=== PATIENT | female | born 1970 | race Caucasian/White ===

== ENCOUNTER → 2017-12-29 06:44 | Outpatient (CLI) | payer OTHER, SELFPAY ==
[2017-12-29 08:34] LABS: Add Manual Diff / Slide Review NO; Eosinophils Percent Auto 2.8 % (2-4); Hematocrit 29.8 % (36-46); Hemoglobin 9.5 g/dL (12.0-16.0); Lymphocytes Percent Auto 28.5 % (25-40); Mean Corpuscular HGB Conc 31.7 % (30-36); Mean Corpuscular Hemoglobin 22.2 PG (26-34); Monocytes Percent Auto 6.9 % (3-14); Neutrophils Absolute Auto 5500 /uL (3000-5900); Neutrophils Percent Auto 60.8 % (50-75); Platelet Count 369 X10^3/uL (150-400); Red Blood Cell Count 4.26 X10^6/uL (4.0-5.2); Red Cell Distribution Width 17.6 % (11.6-14.8)
[2017-12-29 08:43] LABS: Alanine Aminotransferase 24 IU/L (9-52); Albumin 3.9 g/dL (3.5-5.0); Albumin Globulin Ratio 1.4 (1.0-2.8); Alkaline Phosphatase 81 U/L (38-126); Aspartate Aminotransferase 18 IU/L (14-36); Bilirubin Total 0.2 mg/dL (0.2-1.3); Blood Urea Nitrogen 16 mg/dL (7-17); Carbon Dioxide 27 mmol/L (22-32); Chloride 106 mmol/L (98-107); Cholesterol 158 mg/dL (140-199); Estimated Glomerular Filt Rate > 60.0 mL/min (>60); Globulin 2.7 g/dL (1.7-4.1); Glucose 110 mg/dL (70-100); HDL Cholesterol 57 mg/dL (40-60); HEMOLYSIS < 15 (0-50); LDL Cholesterol Calculated 86 mg/dL (<100); Potassium 4.1 mmol/L (3.4-5.1); Sodium 143 mmol/L (137-145); Total Protein 6.6 g/dL (6.3-8.2); Triglycerides 76 mg/dL (35-150)
[2017-12-29 08:53] LABS: Hemoglobin A1C% w Est Avg Glu 5.8 % (4.0-6.0)
[2017-12-29 09:22] LABS: Free T3, Triiodothyronine Free 2.44 pg/mL (2.77-5.27); Free T4, Direct Thyroxine 0.93 ng/dL (0.78-2.19)
[2017-12-29 09:35] LABS: TSH w/ Reflex to FT4 4.96 uIU/mL (0.47-4.68)
[2017-12-31 15:19] LABS: Thyroid Peroxidase Antibodies < 1 IU/mL (< 9)
== END ==
PROVIDERS: Visit Provider Nurse Practitioner Family
DX: Z00.00 Encounter for general adult medical examination without abnormal findings (principal); E03.9 Hypothyroidism, unspecified
CPT/HCPCS: 36415; 80053; 80061; 80076; 83036; 84439; 84443; 84481; 85025; 86376

== ENCOUNTER → 2018-02-23 09:07 | Outpatient (CLI) | payer OTHER, SELFPAY ==
--- NOTE | 2018-02-23 09:08 | DI.US.S_ITS ---
PROCEDURE: US PELVIC COMPLETE INDICATIONS: DUB TECHNIQUE: Real-time scanning was performed of the pelvic organs, with image documentation. Additional endovaginal scanning was necessary due to incomplete visualization of the adnexal and endometrial structures by transabdominal scanning. COMPARISON: [facility], , PELVIC COMPLETE, 01/10/2014, 11:10. FINDINGS: Transabdominal scanning: Limited scanning through the kidneys shows no hydronephrosis. No pathologic free abdominal or pelvic fluid. Endovaginal scanning: Uterus: Uterus is normal in size at 9.3 x 6.8 x 5.8 cm. The endometrium measures 11 mm in combined thickness. Posterior subserosal fibroid not significantly changed measuring 3.3 x 2.7 x 2.7 cm. Posterior intramural fibroid present measuring 1.1 x 0.9 x 1.3 cm. Ovaries: Ovary is normal size measuring 2.4 x 2.0 x 1.8 cm on the right and 3.6 x 2.1 x 3.1 cm on the left. Cyst while the left ovary measured 1.9 x 1.9 x 2.4 cm. IMPRESSION: 1. 2 small fibroids and hemorrhagic cyst involving the left ovary measuring up to 2.4 cm. Given the small size and patient's age, no followup is necessary. Dictated by: Rishi CARDONA Interpreted: Eliezer Yip MD on 02/23/2018 at 11:25 Approved by: Eliezer Yip M.D. on 02/23/2018 at 12:34
== END ==
PROVIDERS: Family Provider Obstetrics & Gynecology; PCP Family Medicine; Visit Provider Family Medicine
DX: N93.8 Other specified abnormal uterine and vaginal bleeding (principal); D25.1 Intramural leiomyoma of uterus; D25.2 Subserosal leiomyoma of uterus; N83.202 Unspecified ovarian cyst, left side
CPT/HCPCS: 76830; 76856

== ENCOUNTER 2018-03-16 20:48 | Emergency (ER) | payer OTHER, SELFPAY ==
[2018-03-16 20:55] VITALS: BP 144/62; PULSE 93; RESP 17; TEMP 36.8; O2SAT 100; BMI 34.1
--- NOTE | 2018-03-16 21:00 | ED.FEMALEGU ---
HPI - Female Genitourinary General Chief complaint: Vaginal Bleeding Stated complaint: Vaginal bleeding, dizziness, pain Time Seen by Provider: 03/16/18 20:51 Source: patient Mode of arrival: ambulatory Limitations: no limitations History of Present Illness HPI Narrative: Patient is a 47-year-old female who presents with vaginal bleeding. She has a known uterine fibroids she has been taking Provera 20 mg every 2 hr to help stop bleeding today. She says today she has been going through more than 1 pad an hour since about 9:00 a.m.. She spoke with import/export analyst who recommended that she take it every 2 hr. So she has taken 3 doses at 2:00 p.m.,4 p.m. and 6:00 p.m. however she feels a not working. She feels dizzy and lightheaded when she stands. She is having intense abdominal cramping. She is scheduled for hysterectomy but not until April. MD Complaint: vaginal bleeding Related Data Home Medications Medication Instructions Recorded Confirmed beclomethasone diprop 80 1 puff INHALATION BID 11/19/17 03/01/18 mcg/actuation HFA breath activated aerosol Previous Rx's Medication Instructions Recorded albuterol sulfate HFA 90 2 puff INHALATION Q6H PRN #18 gram 02/01/18 mcg/actuation aerosol inhaler bupropion HCl XL 300 mg 24 hr 300 mg PO QAM #30 tab 02/01/18 tablet, extended release etodolac 400 mg tablet 400 mg PO BID #60 tab 02/01/18 ferrous sulfate 325 mg (65 mg 325 mg PO BID #60 tab 02/01/18 iron) tablet levothyroxine 175 mcg tablet 175 mcg PO DAILY #90 tab 02/01/18 omeprazole 40 mg capsule,delayed 40 mg PO DAILY #30 cap 02/01/18 release sumatriptan 100 mg tablet 100 mg PO .COMPLEX PRN #30 tab 02/06/18 norethindrone acetate 1 mg-ethinyl 1 tab PO DAILY #21 tab 03/03/18 estradiol 20 mcg tablet paroxetine 30 mg tablet 30 mg PO DAILY #90 tab 03/10/18 medroxyprogesterone 10 mg tablet 20 mg PO DAILY #100 tab 03/16/18 Allergies Allergy/AdvReac Type Severity Reaction Status Date / Time Sulfa (Sulfonamide Allergy Severe ANAPHYLACTI Verified 03/16/18 20:55 Antibiotics) C [SULFA (SULFONAMIDE ANTIBIOTICS)] meperidine [MEPERIDINE] AdvReac Mild CRABBY Verified 03/16/18 20:55 Review of Systems Review of Systems All systems reviewed & are unremarkable except as noted in HPI and below Constitutional Denies chills, Reports fatigue, Denies fever(s) and Reports weakness Cardiovascular Denies syncope and Reports dyspnea on exertion Respiratory Reports dyspnea on exertion Gastrointestinal Gastrointestinal: Reports abdominal pain, Denies nausea and Denies vomiting Genitourinary Reports abnormal vaginal bleeding Integumentary/Breasts Denies pruritus, Denies erythema, Denies rash and Denies wounds Neurologic Denies syncope and Reports weakness Endocrine Reports fatigue PFSH Medical History Anxiety (Chronic) Asthma (Chronic) Depression (Chronic) Fibroids (Chronic) GERD (gastroesophageal reflux disease) (Chronic) Hypothyroidism (Chronic) Seizures (Chronic) Surgical History History of anterior cruciate ligament surgery (Resolved 03/2014) History of cholecystectomy (Resolved 06/2013) History of gastrointestinal surgery (Resolved 07/2007) History of orthopedic surgery (Resolved 02/2003) History of sinus surgery (Resolved 04/2000) History of surgical removal of meniscus of knee (Resolved 01/2004) History of third molar tooth extraction (Resolved 1989) History of tonsillectomy (Resolved 05/1995) Status post laparoscopic cholecystectomy (Resolved 2013) Family History Father Blood clot in vein Grandfather Heart attack Cancer Grandmother Diabetes mellitus Mother Diabetes mellitus Social History Smoking Status: Never smoker alcohol intake: current Exam Initial Vital Signs Initial Vital Signs: Vital Signs Temperature 98.3 F 03/16/18 20:55 Pulse Rate 93 H 03/16/18 20:55 Respiratory Rate 17 03/16/18 20:55 Blood Pressure 144/62 H 03/16/18 20:55 Pulse Oximetry 100 03/16/18 20:55 GENERAL: Well-appearing, well-nourished and in no acute distress. HEENT: Head atraumatic,EOMI, pupils reactive CARDIOVASCULAR: Regular rate and rhythm without murmurs, rubs or gallops. RESPIRATORY: Breath sounds equal bilaterally, no wheezes rales or rhonchi. ABDOMEN: Soft, mild lower abdominal tenderness no guarding no rebound PELVIC: Normal external exam, os open scant amount of blood clots EXTREMITIES: Normal range of motion, no clubbing or edema. Neurovascularly intact NEUROLOGICAL: Alert and oriented x4.Normal gait and speech. SKIN: Warm, dry, no laceration, no petechiae, no rashes or lesions. Course Orders Ordered: Discontinued Medications Hydrocodone Bitart/Acetaminophen ([place] 5/325) 1 tab PO NOW ONE Stop: 03/16/18 21:45 Last Admin: 03/16/18 21:51 Dose: 1 tab Hydrocodone Bitart/Acetaminophen (Vicodin Prepack) 1 bottle MISC SEEINSTR ONE Stop: 03/16/18 23:08 Last Admin: 03/16/18 23:14 Dose: 1 bottle Sodium Chloride (Normal Saline 0.9%) 1,000 mls @ 1,000 mls/hr IV BOLUS ONE Stop: 03/16/18 22:59 Last Infusion: 03/16/18 23:20 Dose: 0 mls/hr Admin: 03/16/18 22:19 Dose: 1,000 mls/hr Medroxyprogesterone Acetate (Medroxyprogesterone) 20 mg PO NOW ONE Stop: 03/16/18 21:07 Last Admin: 03/16/18 21:22 Dose: 20 mg Vital Signs - 8 hr 03/16/18 22:45 03/16/18 23:14 Pulse Rate 75 82 Respiratory Rate 22 21 Blood Pressure [Left Arm] 123/70 112/72 Pulse Oximetry 100 100 MDM - Female Genitourinary Lab Data Attestation: I reviewed the patient's lab results. Result diagrams: 03/16/18 21:09 03/16/18 21:09 Lab Results 03/16/18 03/16/18 03/16/18 Range/Units 21:09 21:09 21:09 WBC 7.6 (4.5-11.0) X10^3/uL RBC 4.19 (4.0-5.2) X10^6/uL Hgb 9.0 L (12.0-16.0) g/dL Hct 28.7 L (36-46) % MCV 68.4 L (80-100) fL MCH 21.4 L (26-34) PG MCHC 31.3 (30-36) % RDW 16.7 H (11.6-14.8) % Plt Count 411 H (150-400) X10^3/uL Neut % (Auto) 71.6 (50-75) % Lymph % (Auto) 19.8 L (25-40) % [place] % (Auto) 5.8 (3-14) % Eos % (Auto) 2.0 (2-4) % Baso % (Auto) 0.8 (0-2) % Neut # (Auto) 5500 (6745-6199) /uL RBC Morphology See below Hypochromasia 2+ H Microcytosis 2+ H Sodium 140 (137-145) mmol/L Potassium 3.9 (3.4-5.1) mmol/L Chloride 105 (98-107) mmol/L Carbon Dioxide 24 (22-32) mmol/L BUN 15 (7-17) mg/dL Creatinine 1.10 H (0.52-1.04) mg/dL Estimated GFR 53.7 L (>60) mL/min BUN/Creatinine Ratio 13.6 (6-22) Glucose 147 H (70-100) mg/dL Calcium 9.0 (8.4-10.2) mg/dL Total Bilirubin 0.2 (0.2-1.3) mg/dL AST 18 (14-36) IU/L ALT 18 (9-52) IU/L Alkaline Phosphatase 68 (38-126) U/L Total Protein 6.8 (6.3-8.2) g/dL Albumin 3.9 (3.5-5.0) g/dL Globulin 2.9 (1.7-4.1) g/dL Albumin/Globulin Ratio 1.3 (1.0-2.8) Serum , Qual (Negative) Blood Type O Positive Antibody Screen Negative 03/16/18 Range/Units 21:09 WBC (4.5-11.0) X10^3/uL RBC (4.0-5.2) X10^6/uL Hgb (12.0-16.0) g/dL Hct (36-46) % MCV (80-100) fL MCH (26-34) PG MCHC (30-36) % RDW (11.6-14.8) % Plt Count (150-400) X10^3/uL Neut % (Auto) (50-75) % Lymph % (Auto) (25-40) % Mayes % (Auto) (3-14) % Eos % (Auto) (2-4) % Baso % (Auto) (0-2) % Neut # (Auto) (0943-4194) /uL RBC Morphology Hypochromasia Microcytosis Sodium (137-145) mmol/L Potassium (3.4-5.1) mmol/L Chloride (98-107) mmol/L Carbon Dioxide (22-32) mmol/L BUN (7-17) mg/dL Creatinine (0.52-1.04) mg/dL Estimated GFR (>60) mL/min BUN/Creatinine Ratio (6-22) Glucose (70-100) mg/dL Calcium (8.4-10.2) mg/dL Total Bilirubin (0.2-1.3) mg/dL AST (14-36) IU/L ALT (9-52) IU/L Alkaline Phosphatase (38-126) U/L Total Protein (6.3-8.2) g/dL Albumin (3.5-5.0) g/dL Globulin (1.7-4.1) g/dL Albumin/Globulin Ratio (1.0-2.8) Serum , Qual Negative (Negative) Blood Type Antibody Screen MDM Narrative Medical decision making narrative: The patient has had ongoing vaginal bleeding which seems to have slowed said she has been in the ED. She was given 1 dose of Provera here. Hemodynamically stable. Hydrocodone seems to have helped her pain. Dr. Carney updated patient's symptoms and test results agrees with outpatient follow-up. Discharge Plan Departure Patient Disposition: Home Clinical Impression: Vaginal bleeding, Fibroid uterus Discharge Date/Time: 03/16/18 23:20 Interventions: ED Discharge Assessment Last Done: 03/16/18 23:25 Instructions: DI for Uterine Fibroids Activity Restrictions/Additional Instructions: *You have been diagnosed with vaginal bleeding, fibroid *Continue to take medications as directed Provera 20 mg every 2 hr if needed for bleeding-take again at 11:30 p.m. *Follow up with your primary care provider in 2-3 days, call Dr. Carney office in the morning *Return to ER if you should have passing out, increased pain, bleeding more than 1 pad or tampon an hour or any new, worsening or concerning symptoms Prescriptions: No Action beclomethasone dipropionate [Qvar RediHaler] 80 mcg/actuation HFA aerosol breath activated 1 puff INHALATION BID RF: 0 ferrous sulfate 325 mg (65 mg iron) tablet 325 mg PO BID Qty: 60 RF: 0 bupropion HCl [Wellbutrin XL] 300 mg tablet extended release 24 hr 300 mg PO QAM Qty: 30 RF: 5 levothyroxine 175 mcg tablet 175 mcg PO DAILY Qty: 90 RF: 4 albuterol sulfate [Ventolin HFA] 90 mcg/actuation HFA aerosol inhaler 2 puff INHALATION Q6H PRN (Reason: shortness of breath or wheezing) Qty: 18 RF: 1 etodolac 400 mg tablet 400 mg PO BID Qty: 60 RF: 2 omeprazole 40 mg capsule,delayed release(DR/EC) 40 mg PO DAILY Qty: 30 RF: 5 sumatriptan succinate 100 mg tablet 100 mg PO .COMPLEX PRN (Reason: migraine headache) Qty: 30 RF: 0 norethindrone ac-eth estradiol 1-20 mg-mcg tablet 1 tab PO DAILY Qty: 21 RF: 0 paroxetine HCl 30 mg tablet 30 mg PO DAILY Qty: 90 RF: 0 medroxyprogesterone 10 mg tablet 20 mg PO DAILY Qty: 100 RF: 1 Referrals: Mee Carney MD [Family Provider] - Lauren Villalpando DO [Primary Care Provider] -
[2018-03-16] MEDS: MEDROXYPROGESTERONE ACETATE 10 MG TABLET 20 MG PO (21:22)
[2018-03-16 21:26] LABS: Add Manual Diff / Slide Review NO; Basophils Percent Auto 0.8 % (0-2); Hematocrit 28.7 % (36-46); Lymphocytes Percent Auto 19.8 % (25-40); Mean Corpuscular HGB Conc 31.3 % (30-36); Mean Corpuscular Hemoglobin 21.4 PG (26-34); Mean Corpuscular Volume 68.4 fL (80-100); Monocytes Percent Auto 5.8 % (3-14); Neutrophils Absolute Auto 5500 /uL (1500-7000); Neutrophils Percent Auto 71.6 % (50-75); Platelet Count 411 X10^3/uL (150-400); Red Blood Cell Count 4.19 X10^6/uL (4.0-5.2); Red Cell Distribution Width 16.7 % (11.6-14.8); White Blood Cell Count 7.6 X10^3/uL (4.5-11.0)
[2018-03-16 21:36] VITALS: BP 115/66; PULSE 78; RESP 16; O2SAT 100
[2018-03-16 21:47] LABS: Alanine Aminotransferase 18 IU/L (9-52); Albumin 3.9 g/dL (3.5-5.0); Albumin Globulin Ratio 1.3 (1.0-2.8); Alkaline Phosphatase 68 U/L (38-126); Aspartate Aminotransferase 18 IU/L (14-36); BUN Creatinine Ratio 13.6 (6-22); Bilirubin Total 0.2 mg/dL (0.2-1.3); Blood Urea Nitrogen 15 mg/dL (7-17); Carbon Dioxide 24 mmol/L (22-32); Chloride 105 mmol/L (98-107); Estimated Glomerular Filt Rate 53.7 mL/min (>60); Globulin 2.9 g/dL (1.7-4.1); Glucose 147 mg/dL (70-100); HEMOLYSIS < 15 (0-50); Potassium 3.9 mmol/L (3.4-5.1); Sodium 140 mmol/L (137-145); Total Protein 6.8 g/dL (6.3-8.2)
[2018-03-16] MEDS: HYDROCODONE/ACET 5/325 TABLET 1 TAB PO (21:51)
[2018-03-16 21:53] LABS: Hypochromasia 2+; Microcytosis 2+
[2018-03-16] MEDS: SODIUM CHLORIDE 0.9% 1,000 ML 1000 ML IV (22:19)
[2018-03-16 22:45] VITALS: BP 123/70; PULSE 75; RESP 22; O2SAT 100
[2018-03-16 23:14] VITALS: BP 112/72; PULSE 82; RESP 21; O2SAT 100
[2018-03-16] MEDS: HYDROCODONE/ACET 5/325 PREPACK 1 BOTTLE MISC (23:14)
[2018-03-16 23:27] LABS: Pregnancy Test Serum,Qual Negative (Negative)
== END 2018-03-16 23:20 | disposition home or self-care (01) ==
PROVIDERS: Emergency Provider Emergency Medicine; Family Provider Obstetrics & Gynecology; PCP Family Medicine
DX: D25.9 Leiomyoma of uterus, unspecified (principal); N93.9 Abnormal uterine and vaginal bleeding, unspecified
CPT/HCPCS: 36591; 80053; 84703; 85025; 86850; 86900; 86901; 96360; 99283; 99284

== ENCOUNTER 2018-05-05 14:20 | Observation (INO) | payer OTHER, SELFPAY ==
[2018-04-28 12:23] VITALS: BMI 35.7
[2018-05-04] VITALS (14 sets, daily range): BP systolic 92–143; BP diastolic 41–71; PULSE 77–87; RESP 12–22; TEMP 36.4–37.2; O2SAT 93–100; BMI 35.7
--- NOTE | 2018-05-04 | PATH_ITS ---
[facility] Accession Number: [id number] . 01 Material submitted: . UTERUS AND BILATERAL FALLOPIAN TUBES . 02 Diagnosis: Uterus and Bilateral Fallopian Tubes, Laparoscopic Supracervical Hysterectomy with Bilateral Salpingectomy (Weight 103 grams): Weakly proliferative endometrium; negative for glandular hyperplasia, cytologic atypia, and malignancy. One benign endometrial polyp (1.7 cm in greatest dimension). Myometrium with multiple intramural leiomyomas (0.4-3.3 cm in greatest dimension). Uterine serosa with patchy, mild nonspecific adhesions. Fallopian tube #1 with no significant histomorphologic abnormality. Fallopian tube #2 with no significant histomorphologic abnormality. [facility]/05/08/2018 . 02 Electronically signed: . Valentina Barr MD, Pathologist NPI- [id number] . 01 Gross description: . Received in formalin, labeled uterus / bilateral tubes, is an upper uterine body (103 grams, 5.5 cm AP, 6.1 cm SI, 5.4 cm ML) and attached fimbriated fallopian tubes (tube #1: length-3.7 cm, diameter-0.4 cm; tube #2: length-5.5 cm, diameter-0.5 cm). The cervix and ovaries are absent. The specimen cannot be oriented as to anterior and posterior. A cueto-pink rubbery polyp (1.7 x 1.0 x 0.2 cm) is identified within the endometrial cavity 0.8 cm from a cornu. The endometrium (average thickness-0.1 cm) is cueto-pink, smooth and flat. The myometrium (thickness-0.3 cm) is cueto-pink and contains multiple firm, white, whorled, well circumscribed, homogeneous nodules (0.4 x 0.3 x 0.2 cm-3.3 x 3.0 x 2.3 cm). The serosa is pete-cueto, smooth and shiny. The fallopian tubes have pete-purple smooth shiny serosa and cueto unremarkable lumens. Section code: (A1-A3) endomyometrium; (A4-A8) endomyometrium, opposite side, polyp included; (A9) fallopian tube #1, admitting representative serial sections; (A10) fimbria #1, bivalved, entirely submitted; (A11) fallopian tube #2, admitting representative serial sections; (A12) fimbria #2, bivalved, entirely submitted. ([id number]) /MRV . 02 Pathologist provided ICD-10: D25.9 . 02 CPT . 984659 Performed at: 01 [facility] [address] [id number] MD Luther Rojas MD Phone: [phone] Performed at: 02 [facility] [address] [place] [id number] MD Edith Juares MD Phone: [phone]
[2018-05-04] MEDS: LACTATED RINGERS 1,000 ML 100 ML IV ×4 (07:35→22:02)
[2018-05-04] MEDS: CEFAZOLIN 2 GM/100 ML FROZ.PIGGY IV (07:51)
--- NOTE | 2018-05-04 08:33 | SUR.OPER ---
Lithotomy on padded OR bed. [place] Pad Positioner under torso. Head on pillow, arms padded and tucked at sides. Legs secured in padded yellow fins stirrups.
[2018-05-04] MEDS: BUPIVACAINE 0.5% W/ EPI (PF) VIAL 30 ML INJ (08:41)
[2018-05-04] MEDS: ROPIVACAINE 0.2% PF 2 MG/ML 10ML AMP 20 ML INJ (08:54)
--- NOTE | 2018-05-04 11:53 | PM.PREOP ---
Pre-operative Note Interval Note History & Physical reviewed/Exam performed by Physician: Yes Changes to H&P: No
[2018-05-04] MEDS: HYDROMORPHONE 2 MG INJ 0.5 MG IV ×2 (11:57→12:09)
[2018-05-04] MEDS: ONDANSETRON 4 MG/2 ML INJ IV (11:59)
--- NOTE | 2018-05-04 13:01 | PC.NURSE ---
Assisting primary RN to admit patient to acute care, received from PACU, VSS, 97% on RA. Awake and alert and following commands, but sleepy in between. at bedside. Patient states pain is improved in abdomen to a 4/10 at this time. Dressings to abdomen in place, CDI. Calf SCD's in place. IV fluids started as ordered. Bernal in place (maintain) draining clear yellow urine at this time. Call light within reach. Bed alarm active for safety.
[2018-05-04] MEDS: OXYCODONE/ACETAMINOPHEN 5/325 TABLET 2 TAB PO ×2 (15:55→21:48)
--- NOTE | 2018-05-04 18:20 | PM.GYNOP.1 ---
Operative Date/Time/Diagnoses Date of procedure: 05/04/18 Time of procedure: 11:30 Pre-op diagnosis: Enlarged fibroid uterus Menorrhagia Anemia Post-op diagnosis: same Procedure: Procedures Operation Date: 05/04/18 07:45 Actual Procedures Side Surgeon p Laparoscopic Supracervical Hysterectomy w/Bilat Salpingectomy, mini laparatomy with cystotomy repair Mee Carney MD Indications: Enlarged fibroid year Menorrhagia Anemia Surgeon: Mee Carney Hvac Technician: Pierre Murray Anesthesia Type: General Operative Notes Findings: 10 week size multi fibroid uterus Normal ovaries and tubes Normal liver and gallbladder Appendix not visualized Closure Type: primary Specimen(s): left tube, right tube and uterus Estimated blood loss (mL): 200 Blood products transfused: none Procedure in detail: The patient was taken to the operating room where she was placed in the dorsal supine position. After adequate general endotracheal anesthesia was achieved, she was placed in the dorsal lithotomy position, and prepped and draped in the usual sterile fashion. A time-out was performed. A bivalve speculum was placed into the vagina and the anterior lip of the cervix grasped with a single-tooth tenaculum. The cervical os was sequentially dilated until the Zumi uterine manipulator could pass easily into the endometrial cavity. The single-tooth tenaculum was removed from the anterior lip of the cervix. The bivalve speculum was removed from the vagina. Attention was then turned to the abdomen where 6 cc of 0.5% Marcaine with epinephrine were injected in the umbilical fold. A 5 mm incision was made. The Veress needle was placed into the peritoneal cavity, and its placement confirmed with aspiration and drop test. The abdominal cavity was insufflated with 4.8 L of CO2. The Veress needle was removed, and a long 5 mm trocar was placed without difficulty. 2 other 5 mm incisions were made 4 cm lateral to the midline almost at the level of the umbilicus. Two 5 mm trocars were placed under direct visualization. The right tube was grasped with an atraumatic grasper. The mesosalpinx was cauterized and cut. The utero-ovarian ligament, broad ligament, and round ligament were cauterized and cut. Hemostasis was achieved. The bladder flap was created by cauterizing and cutting the vesico peritoneum half way across. The uterine arteries were cauterized. Hemostasis was achieved. All of this was repeated on the patient's left side. The remainder of the bladder flap was created and the bladder was taken down off the lower uterine segment and cervix. The Eneida loop was passed over the fundus of the uterus placed 2 cm above the uterus sacral ligaments. The uterus was amputated from the cervix with the Eneida loop. There was no bleeding noted from the cervix. Using the PlasmaKinetic the endocervical canal was cauterized. A 4th incision approximately 1 and 0.5 cm was placed above the pubic symphysis after 6 cc of 0.5% Marcaine with epinephrine were injected. A 12 mm trocar was placed. The 12 mm trocar was removed. The large endobag was placed through the suprapubic incision. The uterus was placed into the bag and the bag was brought through the suprapubic incision. At this point air was noted to be in the Bernal bag. The decision was made to proceed with a mini-laparotomy. The incision was extended to 4 cm. This was extended down to the fascia. Fascia was nicked in the midline and the incision extended bilaterally with the Montoya scissors. Upon entering the peritoneum, a cystotomy was visualized. The edges of the bladder mucosa were grasped with Allis clamps the bladder was closed with 2 0 Vicryl with a running interlocking suture. The bladder was filled with dilute methylene blue. There was no leakage noted. A 2nd layer was performed with simple interrupted sutures with 2 0 Vicryl. Hemostasis was achieved. The pelvis was irrigated with warm normal saline. The pedicles were examined and there was no bleeding noted. The retractor was removed from the incision. The peritoneum was closed using 2 0 Vicryl in a running fashion. The fascia was reapproximated using 0 Vicryl in a running fashion. The subcutaneous layer was reapproximated with 3 simple interrupted sutures with 3 0 Vicryl. The skin was closed with 4 0 undyed Vicryl in a subcuticular fashion. All of the laparoscopy incisions were repaired with 4 0 undyed Vicryl in a subcuticular fashion. Steri-Strips, 2 x 2, and op site were placed over the laparoscopy incisions. Steri-Strips and an Aquacel dressing were placed over the mini-laparotomy incision. The Zumi uterine manipulator had been removed from the uterus before the uterus was amputated from the cervix. A moistened sponge stick was placed into the vagina. This was removed at the end of the case. The Bernal catheter remained in place. Sponge, lap, and instrument counts were correct x2. The patient tolerated the procedure well, and was taken to PACU in stable condition. Complications: other (Inadvertent cystotomy) Post-operative Condition: stable Disposition: PACU Plan for aftercare: To acute care after recovery
[2018-05-04] MEDS: DOCUSATE 250 MG CAPSULE PO (21:48)
[2018-05-04] MEDS: BECLOMETHASONE 80 MCG INH 10.6 GM 1 PUFF INH (21:48)
--- NOTE | 2018-05-04 23:44 | PC.NURSE ---
MONICA SHIFT: Patient doing well this shift. No nausea. Tolerating regular diet, pain controlled with percocet. Denies complaint. VSS, NAD.
[2018-05-05] VITALS (9 sets, daily range): BP systolic 101–134; BP diastolic 45–75; PULSE 71–84; RESP 14–18; TEMP 36.6–36.9; O2SAT 95–100
[2018-05-05] MEDS: OXYCODONE/ACETAMINOPHEN 5/325 TABLET 2 TAB PO ×4 (01:42→19:45)
[2018-05-05] MEDS: LEVOTHYROXINE 100 MCG TABLET PO (06:03)
[2018-05-05] MEDS: LEVOTHYROXINE 75 MCG TABLET PO (06:03)
[2018-05-05] MEDS: PANTOPRAZOLE 40 MG TABLET PO (06:03)
[2018-05-05 06:16] LABS: BUN Creatinine Ratio 12.2 (6-22); Blood Urea Nitrogen 11 mg/dL (7-17); Calcium 8.6 mg/dL (8.4-10.2); Carbon Dioxide 27 mmol/L (22-32); Chloride 104 mmol/L (98-107); Estimated Glomerular Filt Rate > 60.0 mL/min (>60); Glucose 97 mg/dL (70-100); HEMOLYSIS < 15 (0-50); Potassium 3.8 mmol/L (3.4-5.1); Sodium 136 mmol/L (137-145)
[2018-05-05 06:17] LABS: Basophils Absolute Auto 0 /uL (0-100); Basophils Percent Auto 0.1 % (0-2); Eosinophils Absolute Auto 0 /uL (0-450); Hematocrit 23.5 % (36-46); Hemoglobin 7.6 g/dL (12.0-16.0); Lymphocytes Absolute Auto 1000 /uL (1100-4500); Lymphocytes Percent Auto 9.6 % (25-40); Mean Corpuscular HGB Conc 32.4 % (30-36); Mean Corpuscular Hemoglobin 20.5 PG (26-34); Mean Corpuscular Volume 63.4 fL (80-100); Monocytes Absolute Auto 700 /uL (0-900); Monocytes Percent Auto 7.4 % (3-14); Neutrophils Absolute Auto 8400 /uL (1500-7000); Neutrophils Percent Auto 82.9 % (50-75); Platelet Count 415 X10^3/uL (150-400); Red Cell Distribution Width 18.3 % (11.6-14.8); White Blood Cell Count 10.2 X10^3/uL (4.5-11.0)
[2018-05-05 06:54] LABS: Add Manual Diff / Slide Review SLIDE REVIEW
[2018-05-05 07:47] LABS: Anisocytosis 1+; Hypochromasia 3+; Microcytosis 2+
[2018-05-05] MEDS: PARoxetine 10 MG TABLET 30 MG PO (09:00)
[2018-05-05] MEDS: DOCUSATE 250 MG CAPSULE PO ×2 (09:00→19:46)
[2018-05-05] MEDS: buPROPion XL 150 MG TAB 300 MG PO (09:00)
[2018-05-05] MEDS: ONDANSETRON 4 MG/2 ML INJ IV (09:03)
[2018-05-05] MEDS: BECLOMETHASONE 80 MCG INH 10.6 GM 1 PUFF INH ×2 (09:24→18:28)
[2018-05-05] MEDS: SODIUM CHLORIDE 0.9% FLUSH 10 ML IV (11:20)
--- NOTE | 2018-05-05 11:41 | PC.NURSE ---
Addendum entered by Attila Ruano 05/05/18 12:12: Restarted patient on lactated ringers at 100mls/hr. Original Note: STUDENT NURSE: Day shift, Patient reports she is feeling dizzy while at rest. Blood pressure 110/68 adequate fluid intake. Called Dr. Montana, Dr. montana came and saw the patient. She said patient can ambulate to chair if she is comfortable with it. Reports no nausea after being medicated once with IV zofran.
[2018-05-05] MEDS: LACTATED RINGERS 1,000 ML 100 ML IV ×2 (12:08→17:54)
--- NOTE | 2018-05-05 14:21 | PM.PNPO.1 ---
Subjective Date Patient Seen: 05/05/18 Time Patient Seen: 14:21 Interval history: Postoperative day 1 Laparoscopic supracervical hysterectomy with repair of bladder injury. Patient is just now having resolution dizziness. She has had some mild nausea. Her pain is under control. Exam Vital Signs (past 8 hours): - 05/05/18 07:30 05/05/18 09:24 05/05/18 11:22 Temperature 98.3 F Pulse Rate 81 84 Respiratory Rate 16 14 Blood Pressure 133/75 110/68 Pulse Oximetry 98 99 05/05/18 13:01 Temperature 98 F Pulse Rate 71 Respiratory Rate 16 Blood Pressure 107/48 L Pulse Oximetry 99 Oxygen Delivery Method Room Air Oxygen Flow Rate 0 Narrative Exam Narrative: Patient's abdomen is soft, appropriately tender. Her incisions are clean, dry, and intact. Extremities are without edema and nontender. Her urine is yellow. Objective Labs Result Diagrams: 05/05/18 05:29 05/05/18 05:29 Labs: Laboratory Results - last 24 hr 05/05/18 05/05/18 05:29 05:29 WBC 10.2 RBC 3.70 L Hgb 7.6 L Hct 23.5 L MCV 63.4 L MCH 20.5 L MCHC 32.4 RDW 18.3 H Plt Count 415 H Neut % (Auto) 82.9 H Lymph % (Auto) 9.6 L [place] % (Auto) 7.4 Eos % (Auto) 0.0 L Baso % (Auto) 0.1 Neut # (Auto) 8400 H Lymph # (Auto) 1000 L [place] # (Auto) 700 Eos # (Auto) 0 Baso # (Auto) 0 RBC Morphology See below Hypochromasia 3+ H Anisocytosis 1+ H Microcytosis 2+ H Sodium 136 L Potassium 3.8 Chloride 104 Carbon Dioxide 27 BUN 11 Creatinine 0.90 Estimated GFR > 60.0 BUN/Creatinine Ratio 12.2 Glucose 97 Calcium 8.6 Assessment & Plan Post-op Postoperative Procedures Operation Date: 05/04/18 07:45 Actual Procedures Side Surgeon p Laparoscopic Supracervical Hysterectomy w/Bilat Salpingectomy, mini laparatomy with cystotomy repair Mee Carney MD Postoperative day: 1 Postoperative status: other (Patient had dizziness and nausea until this afternoon. She is finally improving.) Postoperative plan: routine post-op care Postoperative plan narrative: Due to the patient's dizziness and mild nausea that did not resolve until her IV fluids were restarted we will admit the patient for another night of monitoring prior to discharge home. Time Spent With Patient less than 15 minutes
[2018-05-05] MEDS: LACTATED RINGERS 500 ML 1000 ML IV (17:01)
--- NOTE | 2018-05-05 21:44 | PC.NURSE ---
1500- assumed care of pt from outgoing shift. pt awake and alert. uses call light. at bedside. snacks provided. uses call light. steady on feet. pain tolerable. paged and orders rec'd for dec urine output. will continue to monitor. 1600- pt checked on, and asleep. will continue to monitor. Pt up for dinner and ate well. . Pt uses call light. up to BR for bm but no luck. pt states she feels constipated and is looking forward to her stool softener. Pt had visitors in for a while and feels very tired. fell asleep around 8pm. calll ight and belonging within reach. dressing c.d.i. will continue to monitor.
[2018-05-06] VITALS: BP 127/77; PULSE 77; RESP 18; TEMP 37.1; O2SAT 97
[2018-05-06] MEDS: OXYCODONE/ACETAMINOPHEN 5/325 TABLET 2 TAB PO ×3 (00:40→12:53)
[2018-05-06] MEDS: LACTATED RINGERS 1,000 ML 100 ML IV (03:59)
[2018-05-06 04:39] VITALS: BP 140/69; PULSE 81; RESP 18; TEMP 36.8; O2SAT 96
[2018-05-06 05:26] LABS: Basophils Absolute Auto 0 /uL (0-100); Basophils Percent Auto 0.7 % (0-2); Eosinophils Absolute Auto 100 /uL (0-450); Eosinophils Percent Auto 0.8 % (2-4); Hematocrit 23.9 % (36-46); Hemoglobin 7.4 g/dL (12.0-16.0); Lymphocytes Absolute Auto 1300 /uL (1100-4500); Lymphocytes Percent Auto 17.7 % (25-40); Mean Corpuscular HGB Conc 31.1 % (30-36); Mean Corpuscular Hemoglobin 20.5 PG (26-34); Mean Corpuscular Volume 66.1 fL (80-100); Monocytes Absolute Auto 500 /uL (0-900); Monocytes Percent Auto 6.6 % (3-14); Neutrophils Absolute Auto 5600 /uL (1500-7000); Neutrophils Percent Auto 74.2 % (50-75); Platelet Count 368 X10^3/uL (150-400); Red Blood Cell Count 3.61 X10^6/uL (4.0-5.2); Red Cell Distribution Width 18.3 % (11.6-14.8); White Blood Cell Count 7.5 X10^3/uL (4.5-11.0)
[2018-05-06 05:53] LABS: Add Manual Diff / Slide Review SLIDE REVIEW
[2018-05-06] MEDS: LEVOTHYROXINE 100 MCG TABLET PO (06:04)
[2018-05-06] MEDS: PANTOPRAZOLE 40 MG TABLET PO (06:04)
[2018-05-06] MEDS: LEVOTHYROXINE 75 MCG TABLET PO (06:04)
--- NOTE | 2018-05-06 06:48 | PC.NURSE ---
Pt. has been is bed all night, VSS, denies dizziness and medicated with Percocet 1 tab only once during the shift with good pain relief. Abd. dressings CD&I. Bernal with 1500 ml clear yellow output.
[2018-05-06 07:59] VITALS: BP 133/67; PULSE 76; RESP 14; TEMP 37.2; O2SAT 97
[2018-05-06 08:20] LABS: Anisocytosis 1+; Hypochromasia 2+; Ovalocytes 1+
--- NOTE | 2018-05-06 08:23 | PC.NURSE ---
Addendum entered by Michaela Juarez R.N. 05/06/18 13:12: Discharge: Tolerated lunch without N/V. Tolerated being up and about without dizziness or lightheadedness. IV dc'd intact. All personal belongings collected and sent with patient. Assisted into wheelchair and taken out to private vehicle by nursing staff. Original Note: Addendum entered by Michaela Juarez R.N. 05/06/18 12:17: Discharge: Saline locked but did not remove IV yet (wanted to see her OOB without dizziness/lightheadedness before removing). Changed Brown over to leg bag for patient to go home with. Provided hand-out and demonstrated how to clean (luiz/cath care), empty and change bags. Given some alcohol swabs and other supplies needed for taking care of the catheter. Patient verbalized understanding of how to care for catheter, present and feels like he will be able to help her with it as needed. Reviewed all of Dr Carney's instructions with patient. Given education info on all new meds, Brown care and Lap hysterectomy. Given scripts for Zofran, Macrobid, Percocet and Diflucan. Assisted into chair for lunch. Denied dizziness/lightheadedness with transfer/sitting up. Denies nausea. Assuming she tolerates sitting up and tolerates her lunch will d/c home shortly. Call light in reach. Original Note: Addendum entered by Michaela Juarez R.N. 05/06/18 10:24: Awake and alert, oriented X3. Denies N/V or dizziness/lightheadedness at rest. C/O 5/10 abd pain- medicated with 1 tab Percocet and provided with fresh ice pack per her request. 3 abd lap sites and suprapubic Aquacel dressing are all C/D/I. No vaginal bleeding noted. Brown to gravity, urine clear yellow. Lungs CTA. HRR. Plan is to discharge home today. Will complete brown/leg bag teaching prior to discharge. Resting in bed now, finishing her breakfast. Call light in reach, bed alarm on. Original Note: Shift summary: Resting quietly in bed with eyes closed. Respirations regular and unlabored, 16/min. Pain 0 on FLACC scale, appears comfortable. VSS. Brown to gravity, urine clear yellow. IVF per order, site in R hand WNL. Will allow to sleep and complete full assessment when awake. Call light in reach.
--- NOTE | 2018-05-06 08:43 | PM.DS.1 ---
History of Present Illness Date Patient Seen: 05/06/18 Time Patient Seen: 08:44 Chief complaint: Menometrorrhagia/status post laparoscopic suprace Narrative: The patient is a 47-year-old who recently underwent a laparoscopic subtotal hysterectomy. There was minor bladder injury at the time of surgery which was repaired. The patient has a Bernal in place which is draining clear urine Discharge Providers Date of admission: 05/05/18 14:20 Primary care physician: Lauren Villalpando DO Discharge provider: Sameer Brown MD Discharge Date: 05/06/18 Summary Discharge Diagnosis: Status post laparoscopic supracervical hysterectomy Hospital Course: Patient was admitted underwent a laparoscopic supracervical hysterectomy with inadvertent bladder injury. Bladder was repaired without difficulty. Post surgery the patient has done well. Her manic it did drop to 24% but remained constant at this level. She had some problems with dizziness and nausea which has abated. The urine remains clear. And the patient is able ambulate. She is taking p.o. well. Patient will be discharged home for follow-up one week for Aquacel dressing removal. Catheter removal will be done at that time as well the patient is going to home on Macrobid Status at Discharge Functional status at discharge: independent ambulation Overall status at discharge: patient is progressing back to baseline Time Spent with Patient Less than 30 minutes Exam Vital Signs (past 8 hours): - 05/06/18 04:39 05/06/18 07:59 Temperature 98.2 F 99 F Pulse Rate 81 76 Respiratory Rate 18 14 Blood Pressure 140/69 133/67 Pulse Oximetry 96 97 Oxygen Delivery Method Room Air Oxygen Flow Rate 0 Narrative Exam Narrative: Examination today shows all wounds healing well. There are no areas of ecchymoses. The abdomen is on distended. Bowel sounds are normal Objective Labs Result Diagrams: 05/06/18 04:50 05/05/18 05:29 Labs: Laboratory Results - last 24 hr 05/06/18 04:50 WBC 7.5 RBC 3.61 L Hgb 7.4 L Hct 23.9 L MCV 66.1 L MCH 20.5 L MCHC 31.1 RDW 18.3 H Plt Count 368 Neut % (Auto) 74.2 Lymph % (Auto) 17.7 L [place] % (Auto) 6.6 Eos % (Auto) 0.8 L Baso % (Auto) 0.7 Neut # (Auto) 5600 Lymph # (Auto) 1300 [place] # (Auto) 500 Eos # (Auto) 100 Baso # (Auto) 0 Hypochromasia 2+ H Anisocytosis 1+ H Ovalocytes 1+ H Discharge Plan Discharge Plan Patient Disposition: Home Discharge comment: Call with fever, chills, redness or drainage around incisions or bleeding vaginally more than spotty to light Call with any blood in the urine or if urine not draining Discharge Med Rec/Prescriptions Prescriptions: New nitrofurantoin macrocrystal [Macrodantin] 50 mg capsule 50 mg PO BEDTIME Qty: 14 RF: 0 oxycodone-acetaminophen [Percocet] 5-325 mg tablet 1 tab PO Q4-6H PRN (Reason: pain) Qty: 30 RF: 0 fluconazole [Diflucan] 150 mg tablet 150 mg PO ONCE HS Qty: 1 RF: 0 ondansetron HCl [Zofran] 4 mg tablet 4 mg PO BID-TID PRN (Reason: nausea and vomiting) Qty: 10 RF: 0 Continued beclomethasone dipropionate [Qvar RediHaler] 80 mcg/actuation HFA aerosol breath activated 1 puff INHALATION BID RF: 0 ferrous sulfate 325 mg (65 mg iron) tablet 325 mg PO BID Qty: 60 RF: 0 bupropion HCl [Wellbutrin XL] 300 mg tablet extended release 24 hr 300 mg PO QAM Qty: 30 RF: 5 levothyroxine 175 mcg tablet 175 mcg PO DAILY Qty: 90 RF: 4 albuterol sulfate [Ventolin HFA] 90 mcg/actuation HFA aerosol inhaler 2 puff INHALATION Q6H PRN (Reason: shortness of breath or wheezing) Qty: 18 RF: 1 etodolac 400 mg tablet 400 mg PO BID Qty: 60 RF: 2 omeprazole 40 mg capsule,delayed release(DR/EC) 40 mg PO DAILY Qty: 30 RF: 5 sumatriptan succinate 100 mg tablet 100 mg PO .COMPLEX PRN (Reason: migraine headache) Qty: 30 RF: 0 paroxetine HCl 30 mg tablet 30 mg PO DAILY Qty: 90 RF: 0 Discontinued hydrocodone-acetaminophen 5-325 mg tablet 1 tab PO Q6H PRN (Reason: Pain) Qty: 20 RF: 0 Follow up/Referrals: Mee Carney MD [Family Provider] - 1 Week (My office will call pt to schedule cystogram) Provider Discharge Instructions Diet: Diet as Tolerated Activity: No heavy lifting, nothing more than a gallon of milk Skin/Wound/Dressing Care Report to your healthcare provider any signs of infection, such as:: chills, fever, increased pain, unusual drainage and unusual redness Dressing: May remove outer plastic dressings and guaze from upper incisions after first shower. Leave lower brown dressing in place Visit Report/Discharge Packet Instructions: DI for Hysterectomy, DI for Laparoscopy, How to Care for Your Bernal Catheter -- Female, Ondansetron, Nitrofurantoin, Oxycodone/Acetaminophen (By mouth), Fluconazole (By mouth) Stand Alone Forms: Surgery Discharge Visit Report Forms: Stroke Signs & Symptoms Discharge Data Primary Care Provider: Lauren Villalpando Attending Provider: Mee Carney Admit Date/Time: 05/05/18 14:20
[2018-05-06] MEDS: buPROPion XL 150 MG TAB 300 MG PO (08:59)
[2018-05-06] MEDS: DOCUSATE 250 MG CAPSULE PO (08:59)
[2018-05-06] MEDS: PARoxetine 10 MG TABLET 30 MG PO (08:59)
[2018-05-06 09:12] VITALS: O2SAT 99
[2018-05-06 09:57] VITALS: PULSE 71; RESP 15; O2SAT 98
[2018-05-06] MEDS: BECLOMETHASONE 80 MCG INH 10.6 GM 1 PUFF INH (09:57)
[2018-05-06 12:38] VITALS: BP 104/47; PULSE 70; RESP 17; TEMP 36.5; O2SAT 98
== END 2018-05-06 13:26 | disposition home or self-care (01) ==
LOC: OR 05-06 07:20
PROVIDERS: Specialist; Admitting Provider Obstetrics & Gynecology; Family Provider Obstetrics & Gynecology; PCP Family Medicine; Visit Provider Obstetrics & Gynecology
PROC: 0UT94ZL Resection of Uterus, Supracervical, Percutaneous Endoscopic Approach (ICD-10-PCS; CPT 58542; principal; 2018-05-04 07:45)
DX: D25.9 Leiomyoma of uterus, unspecified (principal); D64.9 Anemia, unspecified; N92.0 Excessive and frequent menstruation with regular cycle; F41.9 Anxiety disorder, unspecified; J45.909 Unspecified asthma, uncomplicated; F32.9 Major depressive disorder, single episode, unspecified; E03.9 Hypothyroidism, unspecified; R56.9 Unspecified convulsions; N99.518 Other cystostomy complication
CPT/HCPCS: 58542; 51860; 36415; 80048; 85025; 94640; G0378; J0131; J0690; J1100; J1170; J1885; J2250; J2405; J2704; J2795; J3010

== ENCOUNTER 2018-05-11 12:09 | Emergency (ER) | payer OTHER, SELFPAY ==
[2018-05-10 11:19] VITALS: BMI 35.7
--- NOTE | 2018-05-11 12:48 | ED_ITS ---
HPI - Weakness General Chief complaint: Weakness Stated complaint: Near Syncope Time Seen by Provider: 05/11/18 12:48 Source: patient Mode of arrival: EMS Limitations: no limitations History of Present Illness HPI Narrative: Patient is a 47-year-old female who 1 week ago underwent a hysterectomy secondary to fibroids. Patient states that at the time of discharge she was anemic however it was felt that she did not need a blood transfusion. She states that up until today she has been improving. Minimal abdominal tenderness. No vaginal bleeding. She does have a indwelling Bernal catheter in place secondary to a bladder injury during the surgery. She states that today she was standing in her shower when she had a sudden onset of the room spinning sensation. She became very nauseous. She was able to get out of the shower. She did not pass out. She did not hit her head. She is brought here to the emergency department by EMS Related Data Home Medications Medication Instructions Recorded Confirmed beclomethasone diprop 80 1 puff INHALATION BID 11/19/17 05/11/18 mcg/actuation HFA breath activated aerosol acetaminophen 325 mg PO PRN PRN 05/11/18 05/11/18 etodolac 400 mg PO BID PRN 05/11/18 05/11/18 paroxetine HCl 30 mg PO QPM 05/11/18 05/11/18 Previous Rx's Medication Instructions Recorded albuterol sulfate HFA 90 2 puff INHALATION Q6H PRN #18 gram 02/01/18 mcg/actuation aerosol inhaler bupropion HCl XL 300 mg 24 hr 300 mg PO QAM #30 tab 02/01/18 tablet, extended release ferrous sulfate 325 mg (65 mg 325 mg PO BID #60 tab 02/01/18 iron) tablet levothyroxine 175 mcg tablet 175 mcg PO DAILY #90 tab 02/01/18 omeprazole 40 mg capsule,delayed 40 mg PO DAILY #30 cap 02/01/18 release sumatriptan 100 mg tablet 100 mg PO .COMPLEX PRN #30 tab 02/06/18 nitrofurantoin macrocrystal 50 mg PO BEDTIME #14 cap 05/04/18 [Macrodantin] oxycodone-acetaminophen [Percocet] 1 tab PO Q4-6H PRN #30 tab 05/04/18 ondansetron HCl [Zofran] 4 mg PO BID-TID PRN #10 tab 05/06/18 meclizine 25 mg PO BID-TID PRN #14 tab 05/11/18 metoclopramide HCl [Reglan] 10 mg PO Q6H PRN #10 tab 05/11/18 Allergies Allergy/AdvReac Type Severity Reaction Status Date / Time Sulfa (Sulfonamide Allergy Severe ANAPHYLACTI Verified 03/16/18 20:55 Antibiotics) C [SULFA (SULFONAMIDE ANTIBIOTICS)] meperidine [MEPERIDINE] AdvReac Mild CRABBY Verified 03/16/18 20:55 Review of Systems Constitutional Denies chills, Denies fever(s), Denies headache(s), Denies lethargy and Denies malaise Eyes Denies blurry vision and Denies diplopia ENT Ears, Nose, Mouth, and Throat: Reports vertigo, Denies dizziness, Denies headache(s) and Reports disequilibrium Cardiovascular Denies chest pain, Denies pedal edema, Denies edema, Denies palpitations and Reports dyspnea Respiratory Denies cough and Reports dyspnea Gastrointestinal Gastrointestinal: Denies abdominal pain, Reports nausea and Reports vomiting Genitourinary Denies dysuria and Denies vaginal discharge Musculoskeletal Denies myalgias, Denies arthralgias and Denies numbness Integumentary/Breasts Denies rash Neurologic Reports vertigo, Denies dizziness, Denies headache(s), Denies numbness and Reports disequilibrium Endocrine Denies palpitations Hematologic/Lymphatic Denies easy bleeding and Denies easy bruising PFSH Medical History Anemia (Acute) Menorrhagia (Acute) Anxiety (Chronic) Asthma (Chronic) Depression (Chronic) Fibroids (Chronic) GERD (gastroesophageal reflux disease) (Chronic) Hypothyroidism (Chronic) Seizures (Chronic) Surgical History History of Hafsa fundoplication (Acute) History of anterior cruciate ligament surgery (Resolved 03/2014) History of cholecystectomy (Resolved 06/2013) History of gastrointestinal surgery (Resolved 07/2007) History of orthopedic surgery (Resolved 02/2003) History of sinus surgery (Resolved 04/2000) History of surgical removal of meniscus of knee (Resolved 01/2004) History of third molar tooth extraction (Resolved 1989) History of tonsillectomy (Resolved 05/1995) Status post laparoscopic cholecystectomy (Resolved 2013) Family History Father Blood clot in vein Grandfather Heart attack Cancer Grandmother Diabetes mellitus Mother Diabetes mellitus Social History household members: spouse Smoking Status: Never smoker alcohol intake: current Family History Father Blood clot in vein Grandfather Heart attack Cancer Grandmother Diabetes mellitus Mother Diabetes mellitus Social History household members: spouse Smoking Status: Never smoker alcohol intake: current Exam Initial Vital Signs Initial Vital Signs: Vital Signs Temperature 98.3 F 05/11/18 13:00 Pulse Rate 78 05/11/18 13:00 Respiratory Rate 28 H 05/11/18 13:00 Blood Pressure 151/93 H 05/11/18 13:00 Pulse Oximetry 100 05/11/18 13:00 Const General: cooperative, No comfortable (Uncomfortable), well developed, well groomed and No acute distress Orientation: alert, awake and oriented x3 HENMT Head: normal to inspection and normocephalic Resp Effort & Inspection: tachypneic Auscultation: clear to auscultation bilaterally Cardio Rate: regular rate Rhythm: regular rhythm Pulses: radial pulses not present GI Inspection: non-distended Palpation: soft, No firm and No tender Skin Rashes: no rashes Other: Surgical incisions look very well. Steri-Strips in place. No signs of erythema. No drainage. Neuro General: alert, awake and oriented x3 Speech: speech normal Extrem General: normal to inspection and capillary refill normal Psych Appearance: grossly normal and well kempt Course Orders Ordered: ED Orders 05/11/18 12:00 Basic Metabolic Panel Stat Complete Blood Count AUTO DIFF Stat Thyroid Stimulating Hormone Stat 05/11/18 12:49 EKG-12 Lead Stat 05/11/18 13:52 Type and Screen Stat Discontinued Medications Acetaminophen (Tylenol) 975 mg PO NOW ONE Stop: 05/11/18 16:00 Last Admin: 05/11/18 16:00 Dose: 975 mg Diazepam (Valium) 5 mg IV NOW ONE Stop: 05/11/18 13:04 Last Admin: 05/11/18 13:13 Dose: 5 mg Sodium Chloride (Normal Saline 0.9%) 1,000 mls @ 1,000 mls/hr IV BOLUS ONE Stop: 05/11/18 13:47 Last Infusion: 05/11/18 15:16 Dose: 0 mls/hr Admin: 05/11/18 13:07 Dose: 1,000 mls/hr Sodium Chloride (Normal Saline 0.9%) 1,000 mls @ 150 mls/hr IV CONT LATOYA Last Admin: 05/11/18 16:48 Dose: Not Given Metoclopramide HCl (Reglan) 10 mg IV NOW ONE Stop: 05/11/18 15:13 Last Admin: 05/11/18 15:31 Dose: 10 mg Ondansetron HCl (Zofran) 4 mg IV NOW ONE Stop: 05/11/18 12:49 Last Admin: 05/11/18 13:07 Dose: 4 mg Ondansetron HCl (Zofran) 4 mg IV NOW ONE Stop: 05/11/18 14:10 Last Admin: 05/11/18 14:05 Dose: 4 mg Vital Signs - 8 hr 05/11/18 13:00 05/11/18 14:58 05/11/18 16:01 Temperature 98.3 F Pulse Rate 78 75 77 Respiratory Rate 28 H 17 16 Blood Pressure [Right Arm] 151/93 H 121/56 L 109/34 L Pulse Oximetry 100 99 98 05/11/18 16:30 Temperature Pulse Rate 78 Respiratory Rate 22 Blood Pressure [Right Arm] 119/63 Pulse Oximetry 99 MDM - Weakness Lab Data Attestation: I reviewed the patient's lab results. Result diagrams: 05/11/18 12:00 05/11/18 12:00 Lab Results 05/11/18 05/11/18 05/11/18 Range/Units 12:00 12:00 12:00 WBC 12.1 H (4.5-11.0) X10^3/uL RBC 4.58 (4.0-5.2) X10^6/uL Hgb 9.0 L (12.0-16.0) g/dL Hct 29.9 L (36-46) % MCV 65.3 L (80-100) fL MCH 19.7 L (26-34) PG MCHC 30.2 (30-36) % RDW 18.2 H (11.6-14.8) % Plt Count 546 H (150-400) X10^3/uL Neut % (Auto) 67.1 (50-75) % Lymph % (Auto) 20.0 L (25-40) % [place] % (Auto) 6.0 (3-14) % Eos % (Auto) 5.7 H (2-4) % Baso % (Auto) 1.2 (0-2) % Neut # (Auto) 8100 H (4901-8701) /uL Lymph # (Auto) 2400 (4391-3251) /uL [place] # (Auto) 700 (0-900) /uL Eos # (Auto) 700 H (0-450) /uL Baso # (Auto) 100 (0-100) /uL RBC Morphology See below Polychromasia 1+ H Hypochromasia 1+ H Poikilocytosis 1+ H Anisocytosis 2+ H Microcytosis 2+ H Ovalocytes 1+ H Sodium 137 (137-145) mmol/L Potassium 3.6 (3.4-5.1) mmol/L Chloride 100 (98-107) mmol/L Carbon Dioxide 25 (22-32) mmol/L BUN 11 (7-17) mg/dL Creatinine 0.90 (0.52-1.04) mg/dL Estimated GFR > 60.0 (>60) mL/min BUN/Creatinine Ratio 12.2 (6-22) Glucose 108 H (70-100) mg/dL Calcium 9.4 (8.4-10.2) mg/dL TSH 0.14 L (0.47-4.68) uIU/mL Blood Type Antibody Screen 05/11/18 Range/Units 13:52 WBC (4.5-11.0) X10^3/uL RBC (4.0-5.2) X10^6/uL Hgb (12.0-16.0) g/dL Hct (36-46) % MCV (80-100) fL MCH (26-34) PG MCHC (30-36) % RDW (11.6-14.8) % Plt Count (150-400) X10^3/uL Neut % (Auto) (50-75) % Lymph % (Auto) (25-40) % [place] % (Auto) (3-14) % Eos % (Auto) (2-4) % Baso % (Auto) (0-2) % Neut # (Auto) (0253-1445) /uL Lymph # (Auto) (0707-0583) /uL [place] # (Auto) (0-900) /uL Eos # (Auto) (0-450) /uL Baso # (Auto) (0-100) /uL RBC Morphology Polychromasia Hypochromasia Poikilocytosis Anisocytosis Microcytosis Ovalocytes Sodium (137-145) mmol/L Potassium (3.4-5.1) mmol/L Chloride (98-107) mmol/L Carbon Dioxide (22-32) mmol/L BUN (7-17) mg/dL Creatinine (0.52-1.04) mg/dL Estimated GFR (>60) mL/min BUN/Creatinine Ratio (6-22) Glucose (70-100) mg/dL Calcium (8.4-10.2) mg/dL TSH (0.47-4.68) uIU/mL Blood Type O Positive Antibody Screen Negative ECG Data Attestation: I personally reviewed and interpreted this ECG as follows: Prior ECG tracings: not available for review Interpretation: Sinus rhythm Ventricular rate 82 Normal axis Normal QRS Normal QTC No ST T wave changes MDM Narrative Medical decision making narrative: Upon arrival patient was in distress. She was unable to open her eyes without becoming extremely nauseous. She was given Zofran and Valium here in the emergency department. Her symptoms did sound very much like vertigo. The Valium improved her vertigo tremendously however her nausea continued. After the Valium her tachypnea resolved. She was given Reglan which seemed to work much better than the Zofran and completely took her nausea away. She was able to tolerate oral intake. I did discuss the case with Dr. Carney with waste machine tender who asked me to take off her surgical dressing which I did. The surgical wound appears well. EKG is unremarkable. Her H&H is improved. I do feel that her symptoms are secondary to peripheral vertigo. Will send home with meclizine and Reglan. She was given return precautions. She is going to keep all of her scheduled medical appointments. She expressed understanding and agreement plan. Discharge Plan Departure Patient Disposition: Home Clinical Impression: Vertigo Discharge Date/Time: 05/11/18 17:00 Interventions: ED Discharge Assessment Last Done: 05/11/18 17:00 Instructions: Vertigo (Alternative Therapy), DI for Vertigo Activity Restrictions/Additional Instructions: Make sure you keep all of your scheduled medical appointments. Make sure your increasing her fluid intake. Over the next couple days be careful when you change positions such as going from sitting to standing or lying to sitting. Return to the emergency department for any new or worsening symptoms Prescriptions: New metoclopramide HCl [Reglan] 10 mg tablet 10 mg PO Q6H PRN (Reason: nausea and vomiting) Qty: 10 RF: 0 meclizine 25 mg tablet,chewable 25 mg PO BID-TID PRN (Reason: motion sickness) Qty: 14 RF: 0 No Action beclomethasone dipropionate [Qvar RediHaler] 80 mcg/actuation HFA aerosol breath activated 1 puff INHALATION BID RF: 0 ferrous sulfate 325 mg (65 mg iron) tablet 325 mg PO BID Qty: 60 RF: 0 bupropion HCl [Wellbutrin XL] 300 mg tablet extended release 24 hr 300 mg PO QAM Qty: 30 RF: 5 levothyroxine 175 mcg tablet 175 mcg PO DAILY Qty: 90 RF: 4 albuterol sulfate [Ventolin HFA] 90 mcg/actuation HFA aerosol inhaler 2 puff INHALATION Q6H PRN (Reason: shortness of breath or wheezing) Qty: 18 RF: 1 omeprazole 40 mg capsule,delayed release(DR/EC) 40 mg PO DAILY Qty: 30 RF: 5 sumatriptan succinate 100 mg tablet 100 mg PO .COMPLEX PRN (Reason: migraine headache) Qty: 30 RF: 0 acetaminophen 325 mg Tablet 325 mg PO PRN PRN (Reason: pain or headache) RF: 0 paroxetine HCl 30 mg tablet 30 mg PO QPM RF: 0 etodolac 400 mg tablet 400 mg PO BID PRN (Reason: pain) RF: 0 nitrofurantoin macrocrystal [Macrodantin] 50 mg capsule 50 mg PO BEDTIME Qty: 14 RF: 0 oxycodone-acetaminophen [Percocet] 5-325 mg tablet 1 tab PO Q4-6H PRN (Reason: pain) Qty: 30 RF: 0 ondansetron HCl [Zofran] 4 mg tablet 4 mg PO BID-TID PRN (Reason: nausea and vomiting) Qty: 10 RF: 0 Referrals: Irasema,Lauren, [Primary Care Provider] -
[2018-05-11 13:00] VITALS: BP 151/93; PULSE 78; RESP 28; TEMP 36.8; O2SAT 100
[2018-05-11] MEDS: ONDANSETRON 4 MG/2 ML INJ IV ×2 (13:07→14:05)
[2018-05-11] MEDS: SODIUM CHLORIDE 0.9% 1,000 ML 1000 ML IV (13:07)
[2018-05-11 13:09] LABS: BUN Creatinine Ratio 12.2 (6-22); Blood Urea Nitrogen 11 mg/dL (7-17); Calcium 9.4 mg/dL (8.4-10.2); Carbon Dioxide 25 mmol/L (22-32); Chloride 100 mmol/L (98-107); Estimated Glomerular Filt Rate > 60.0 mL/min (>60); Glucose 108 mg/dL (70-100); HEMOLYSIS < 15 (0-50); Potassium 3.6 mmol/L (3.4-5.1); Sodium 137 mmol/L (137-145)
[2018-05-11 13:11] LABS: Add Manual Diff / Slide Review NO; Basophils Absolute Auto 100 /uL (0-100); Basophils Percent Auto 1.2 % (0-2); Eosinophils Absolute Auto 700 /uL (0-450); Eosinophils Percent Auto 5.7 % (2-4); Hematocrit 29.9 % (36-46); Lymphocytes Absolute Auto 2400 /uL (1100-4500); Mean Corpuscular HGB Conc 30.2 % (30-36); Mean Corpuscular Hemoglobin 19.7 PG (26-34); Monocytes Absolute Auto 700 /uL (0-900); Neutrophils Absolute Auto 8100 /uL (1500-7000); Neutrophils Percent Auto 67.1 % (50-75); Platelet Count 546 X10^3/uL (150-400); Red Blood Cell Count 4.58 X10^6/uL (4.0-5.2); Red Cell Distribution Width 18.2 % (11.6-14.8); White Blood Cell Count 12.1 X10^3/uL (4.5-11.0)
[2018-05-11 13:12] LABS: Mean Corpuscular Volume 65.3 fL (80-100)
[2018-05-11] MEDS: diazePAM 10 MG/2 ML SYRINGE 5 MG IV (13:13)
[2018-05-11 13:33] LABS: Anisocytosis 2+; Hypochromasia 1+; Microcytosis 2+; Poikilocytosis 1+; Polychromasia 1+
[2018-05-11 13:34] LABS: Ovalocytes 1+
[2018-05-11 13:40] LABS: Thyroid Stimulating Hormone 0.14 uIU/mL (0.47-4.68)
[2018-05-11 14:58] VITALS: BP 121/56; PULSE 75; RESP 17; O2SAT 99
[2018-05-11] MEDS: METOCLOPRAMIDE 10 MG/2 ML INJ IV (15:31)
--- NOTE | 2018-05-11 15:37 | PC.NURSE ---
Patient was positioned more upright in bed to attempt to get patient vertical. Patient reports I feel like I am going to fall out of the bed reports increase in nausea and symptoms of dizziness. Patient resp rate increased into high 30's-40. Assisted in lowering the patient back down resp rate slowed and reports dizziness improving. Unable to open eyes at this time.
[2018-05-11] MEDS: ACETAMINOPHEN 325 MG TABLET 975 MG PO (16:00)
[2018-05-11 16:01] VITALS: BP 109/34; PULSE 77; RESP 16; O2SAT 98
[2018-05-11 16:30] VITALS: BP 119/63; PULSE 78; RESP 22; O2SAT 99
--- NOTE | 2018-05-11 16:59 | PC.NURSE ---
patient provided green scrubs for discharge
== END 2018-05-11 17:00 | disposition home or self-care (01) ==
PROVIDERS: Emergency Provider Emergency Medicine; Family Provider Obstetrics & Gynecology; PCP Family Medicine
DX: R42 Dizziness and giddiness (principal)
CPT/HCPCS: 36415; 80048; 84443; 85025; 86850; 86900; 86901; 93005; 96361; 96374; 96375; 96376; 99283; 99284; J2405; J2765; J3360

== ENCOUNTER → 2018-05-15 12:37 | Outpatient (CLI) | payer OTHER, SELFPAY ==
[2018-05-04 06:27] VITALS: BMI 35.7
[2018-05-10 11:19] VITALS: BMI 35.7
--- NOTE | 2018-05-15 12:38 | DI.RAD.S_ITS ---
PROCEDURE: FL CYSTOGRAM INDICATIONS: Bladder perforation COMPARISON: None. FINDINGS: KUB: Preprocedural abrasive worker film demonstrates a normal bowel gas pattern. A Bernal catheter is present. No suspicious abdominal calcifications. Bony structures are unremarkable. Bladder: Contour irregularity and outpouching at the left aspect of the bladder presumably reflecting contained bladder perforation. No free spillage of contrast material IMPRESSION: Presumed contained left-sided bladder perforation. Findings were personally telephoned and discussed with Dr. Carney's nurse ([place]) on 05/15/18 Dictated by: Eliezer Yip M.D. on 05/15/2018 at 14:05 Approved by: Eliezer Yip M.D. on 05/15/2018 at 15:37
== END ==
PROVIDERS: Family Provider Obstetrics & Gynecology; PCP Family Medicine; Visit Provider Obstetrics & Gynecology
DX: N99.72 Accidental puncture and laceration of a genitourinary system organ or structure during other procedure (principal)
CPT/HCPCS: 74430

== ENCOUNTER 2018-05-20 00:48 | Observation (INO) | payer OTHER, SELFPAY ==
[2018-05-10 11:19] VITALS: BMI 35.7
[2018-05-20] VITALS (19 sets, daily range): BP systolic 103–165; BP diastolic 47–85; PULSE 71–92; RESP 12–20; TEMP 36.2–37.1; O2SAT 92–100; BMI 35.0
--- NOTE | 2018-05-20 01:07 | ED_ITS ---
HPI - General Adult General Chief complaint: Urogenital-Female Stated complaint: CATHETER PROBLEMS/SURG ON 05/04/18 Time Seen by Provider: 05/20/18 01:06 Source: patient Mode of arrival: ambulatory Limitations: no limitations History of Present Illness HPI narrative: Patient is 47-year-old female who I have seen in this emergency department in the past. Within the past month she had a hysterectomy. During the operation there was a bladder injury. Last time I evaluated the patient she did have a Bernal catheter in place. She stated that on of this week she had a cystoscopy done by Urology. She stated that they replaced the Bernal and told her that she needed to keep it in for the next 2 weeks. She stated that since that time she has felt like the Bernal has not worked as well. She states she feels like it is not draining as much. She states she is drinking. She returns today for lower abdominal pain and pain that radiates up to her left flank area. No fevers. She stated that she has not emptied the Bernal catheter bag since 1300 hr. Related Data Home Medications Medication Instructions Recorded Confirmed beclomethasone diprop 80 1 puff INHALATION BID 11/19/17 05/17/18 mcg/actuation HFA breath activated aerosol acetaminophen 325 mg PO PRN PRN 05/11/18 05/17/18 etodolac 400 mg PO BID PRN 05/11/18 05/17/18 paroxetine HCl 30 mg PO QPM 05/11/18 05/17/18 Previous Rx's Medication Instructions Recorded albuterol sulfate HFA 90 2 puff INHALATION Q6H PRN #18 gram 02/01/18 mcg/actuation aerosol inhaler bupropion HCl XL 300 mg 24 hr 300 mg PO QAM #30 tab 02/01/18 tablet, extended release ferrous sulfate 325 mg (65 mg 325 mg PO BID #60 tab 02/01/18 iron) tablet levothyroxine 175 mcg tablet 175 mcg PO DAILY #90 tab 02/01/18 omeprazole 40 mg capsule,delayed 40 mg PO DAILY #30 cap 02/01/18 release sumatriptan 100 mg tablet 100 mg PO .COMPLEX PRN #30 tab 02/06/18 oxycodone-acetaminophen [Percocet] 1 tab PO Q4-6H PRN #30 tab 05/04/18 ondansetron HCl [Zofran] 4 mg PO BID-TID PRN #10 tab 05/06/18 meclizine 25 mg PO BID-TID PRN #14 tab 05/11/18 metoclopramide HCl [Reglan] 10 mg PO Q6H PRN #10 tab 05/11/18 nitrofurantoin macrocrystal 50 mg 50 mg PO BEDTIME #30 cap 05/17/18 capsule Allergies Allergy/AdvReac Type Severity Reaction Status Date / Time Sulfa (Sulfonamide Allergy Severe ANAPHYLACTI Verified 05/20/18 02:10 Antibiotics) C [SULFA (SULFONAMIDE ANTIBIOTICS)] meperidine [MEPERIDINE] AdvReac Mild CRABBY Verified 05/20/18 02:10 Review of Systems Constitutional Denies fever(s) and Denies headache(s) ENT Ears, Nose, Mouth, and Throat: Denies headache(s) Cardiovascular Denies chest pain and Denies dyspnea Respiratory Denies dyspnea Gastrointestinal Gastrointestinal: Reports abdominal pain, Denies change in stool character, Denies nausea and Denies vomiting Genitourinary Comments: Bernal catheter in place, left flank pain Musculoskeletal Reports back pain, Denies myalgias and Denies arthralgias Integumentary/Breasts Denies rash Neurologic Denies headache(s) Hematologic/Lymphatic Denies easy bleeding and Denies easy bruising PFSH Medical History Hiatal hernia (Acute) Anemia (Acute) Menorrhagia (Acute) Anxiety (Chronic) Asthma (Chronic) Depression (Chronic) Fibroids (Chronic) GERD (gastroesophageal reflux disease) (Chronic) Hypothyroidism (Chronic) Seizures (Chronic) Surgical History S/P partial hysterectomy (Acute) History of Hafsa fundoplication (Acute) History of anterior cruciate ligament surgery (Resolved 03/2014) History of cholecystectomy (Resolved 06/2013) History of gastrointestinal surgery (Resolved 07/2007) History of orthopedic surgery (Resolved 02/2003) History of sinus surgery (Resolved 04/2000) History of surgical removal of meniscus of knee (Resolved 01/2004) History of third molar tooth extraction (Resolved 1989) History of tonsillectomy (Resolved 05/1995) Status post laparoscopic cholecystectomy (Resolved 2013) Family History Father Blood clot in vein Grandfather Heart attack Cancer Grandmother Diabetes mellitus Mother Diabetes mellitus Social History household members: spouse Smoking Status: Never smoker alcohol intake: current Family History Father Blood clot in vein Grandfather Heart attack Cancer Grandmother Diabetes mellitus Mother Diabetes mellitus Social History household members: spouse Smoking Status: Never smoker alcohol intake: current Exam Initial Vital Signs Initial Vital Signs: Vital Signs Temperature 98.2 F 05/20/18 00:58 Pulse Rate 84 05/20/18 00:58 Respiratory Rate 18 05/20/18 00:58 Blood Pressure 165/85 H 05/20/18 00:58 Pulse Oximetry 98 05/20/18 00:58 Const General: cooperative, healthy appearing, well developed, well groomed and No acute distress Orientation: alert, awake and oriented x3 Resp Effort & Inspection: normal respiratory effort Auscultation: clear to auscultation bilaterally Cardio Rate: regular rate Rhythm: regular rhythm Pulses: radial pulses present GI Inspection: non-distended Palpation: soft, No firm and No tender Back/Spine/Pelvis Back: CVA tenderness left Skin Lesions: no lesions Rashes: no rashes Other: Lower abdomen surgical incision looks well. Neuro General: alert, awake and oriented x3 Extrem General: normal to inspection and capillary refill normal Psych Appearance: grossly normal and well kempt Course Orders Ordered: ED Orders 05/20/18 01:31 CT abdomen pelvis w con Stat 05/20/18 01:42 Complete Blood Count AUTO DIFF Stat Comprehensive Metabolic Panel Stat Lipase Stat 05/20/18 03:26 Consult to Physician Routine Piperacillin/Tazobactam/Dextrose (Zosyn) 3.375 gm in 50 mls @ 100 mls/hr IV NOW ONE Stop: 05/20/18 03:54 Sodium Chloride (Normal Saline 0.9%) 1,000 mls @ 125 mls/hr IV CONT LATOYA Morphine Sulfate (Morphine) 2 mg IV Q4HR PRN PRN Reason: Pain, Mild (1-3) Ondansetron HCl (Zofran) 4 mg IV Q4HR PRN PRN Reason: Nausea And Vomiting Discontinued Medications Morphine Sulfate (Morphine) 4 mg IV NOW ONE Stop: 05/20/18 03:26 Ondansetron HCl (Zofran) 4 mg IV NOW ONE Stop: 05/20/18 01:46 Last Admin: 05/20/18 01:52 Dose: 4 mg Vital Signs - 8 hr 05/20/18 00:58 05/20/18 02:57 Temperature 98.2 F Pulse Rate 84 91 H Respiratory Rate 18 18 Blood Pressure 165/85 H Blood Pressure [Right Arm] 143/66 H Pulse Oximetry 98 100 Medical Decision Making Lab Data Lab results reviewed: Yes I reviewed the patient's lab results. Result diagrams: 05/20/18 01:42 05/20/18 01:42 Lab Results 05/20/18 05/20/18 Range/Units 01:42 01:42 WBC 12.0 H (4.5-11.0) X10^3/uL RBC 4.28 (4.0-5.2) X10^6/uL Hgb 8.7 L (12.0-16.0) g/dL Hct 28.0 L (36-46) % MCV 65.4 L (80-100) fL MCH 20.3 L (26-34) PG MCHC 31.0 (30-36) % RDW 19.2 H (11.6-14.8) % Plt Count 512 H (150-400) X10^3/uL Neut % (Auto) 76.9 H (50-75) % Lymph % (Auto) 12.9 L (25-40) % [place] % (Auto) 4.9 (3-14) % Eos % (Auto) 4.2 H (2-4) % Baso % (Auto) 1.1 (0-2) % Neut # (Auto) 9200 H (6851-1101) /uL Lymph # (Auto) 1600 (4805-7549) /uL [place] # (Auto) 600 (0-900) /uL Eos # (Auto) 500 H (0-450) /uL Baso # (Auto) 100 (0-100) /uL Sodium 136 L (137-145) mmol/L Potassium 4.0 (3.4-5.1) mmol/L Chloride 102 (98-107) mmol/L Carbon Dioxide 24 (22-32) mmol/L BUN 18 H (7-17) mg/dL Creatinine 1.20 H (0.52-1.04) mg/dL Estimated GFR 48.6 L (>60) mL/min BUN/Creatinine Ratio 15.0 (6-22) Glucose 91 (70-100) mg/dL Calcium 9.5 (8.4-10.2) mg/dL Total Bilirubin 0.2 (0.2-1.3) mg/dL AST 21 (14-36) IU/L ALT 27 (9-52) IU/L Alkaline Phosphatase 88 (38-126) U/L Total Protein 7.4 (6.3-8.2) g/dL Albumin 4.3 (3.5-5.0) g/dL Globulin 3.1 (1.7-4.1) g/dL Albumin/Globulin Ratio 1.4 (1.0-2.8) Lipase 34 (23-300) U/L Imaging Data CT scan - abdomen: Radiologist's impression: Status post partial hysterectomy with lower anterior incision. Rim enhancing abscess anterior to the lower rectus musculature near the incision. Measuring 4.7 x 3.8 cm. Bladder is decompressed around a Bernal catheter with extraperitoneal stranding possibly postoperative. Small free fluid in the pelvis with 3.9 cm right ovarian cyst. MDM Narrative Medical decision making narrative: Patient is nontoxic appearing. He is not tachycardic. Her hemoglobin and hematocrit relatively the same from her last visit here in the emergency department. We attempted to flush the Bernal cat heter that she came in with without any return. Bladder scan shows less than 100 cc in the bladder. This Bernal catheter was replaced with minimal urine output. Patient is having lower abdominal tenderness and left flank tenderness. She does have an elevation in her creatinine in a decrease in her GFR. CT scan of the abdomen was obtained because the bladder scan and decreased urine output not explain her lower abdominal pain that she was having. When she returned from the CT scan she did put out 200 cc of urine. Since that time she has put out approximately [address] scan does show a abscess. Discussed the case with Dr. Russ who is on-call for OB. Will admit for further evaluation and treatment of this abscess. Patient was started on antibiotics here in the emergency department. We did discuss the admission. The patient expressed understanding and agreement with plan. Discharge Plan Departure Patient Disposition: Admitted as Observation Clinical Impression: Abdominal wall abscess Admit Date/Time: 05/20/18 03:29 Admit Provider: Vivian Russ
--- NOTE | 2018-05-20 01:31 | DI.CT.S_ITS ---
PROCEDURE: CT ABDOMEN PELVIS W CON INDICATIONS: lower abdominal pain unable to urinate, no output from brown TECHNIQUE: After the administration of intravenous contrast, 5 mm thick sections acquired from the diaphragm to the symphysis. 5 mm coronal and sagittal reformats were acquired. For radiation dose reduction, the following was used: automated exposure control, adjustment of mA and/or kV according to patient size. COMPARISON: [facility], [place], [place] CYSTOGRAM, 05/15/2018, 12:01. [facility], CT, CT CHEST ABDOMEN PELVIS WITH CONTRAST, 08/03/2017, 20:44. FINDINGS: Image quality: Excellent. ABDOMEN: Lung bases: Lung bases are clear. Heart size is normal. There is a moderate-sized hiatal hernia. Solid organs: Liver is normal in size and enhancement. Gallbladder is surgically absent. Biliary system is non dilated. Pancreas enhances normally. Spleen is normal in size and enhancement. No adrenal nodules. Kidneys demonstrate normal size and enhancement, without hydronephrosis. Peritoneum and bowel: Bowel loops demonstrate normal wall thickness and caliber. No free fluid or air. Nodes and vessels: No retroperitoneal or mesenteric adenopathy by size criteria. Aorta and inferior vena cava are normal in size. Miscellaneous: No ventral hernias. PELVIS: Genitourinary: Patient is status post partial hysterectomy. There is a cyst within the right ovary which measures 4.0 x 2.1 cm which was not visualized on the prior comparison CT dated 08/03/17. The bladder is decompressed and a Brown catheter is present. Some gas is present within the bladder which may be secondary to catheterization. There is moderate perivesicular fat stranding. A probable contained bladder rupture is redemonstrated along the superior left aspect of the bladder corresponding with the images on the fluoroscopic cystogram dated 05/15/18. No free perivesicular fluid, however, trace low-density fluid is present within the posterior pelvis. Miscellaneous: No inguinal hernias or adenopathy. A low-density, rim enhancing, irregularly marginated 5.0 x 3.0 x 5.9 cm fluid collection is present within the subcutaneous fat of the mons pubis anterior to the transverse abdominis/rectus abdominis musculature. Bones: No suspicious bony lesions. No vertebral body compression fractures. IMPRESSION: 1. Extensive postoperative changes as above. Probable contained left superior bladder rupture is redemonstrated which likely corresponds with findings on the fluoroscopic cystogram dated 05/15/18. 2. No findings to suggest perivesicular abscess or free extravasation of urine into the pelvis. Trace low-density fluid within the posterior pelvis may be physiologic. 3. Probable right ovarian cyst. Nonemergent followup pelvic ultrasound is recommended. 4. Subcutaneous abscess likely along the postoperative anterior incision as described above. These findings are concordant with the overnight interpretation. Dictated by: Nya Keys M.D. on 05/20/2018 at 8:17 Approved by: Nya Keys M.D. on 05/20/2018 at 8:55
[2018-05-20 01:50] LABS: Basophils Absolute Auto 100 /uL (0-100); Basophils Percent Auto 1.1 % (0-2); Eosinophils Absolute Auto 500 /uL (0-450); Eosinophils Percent Auto 4.2 % (2-4); Hemoglobin 8.7 g/dL (12.0-16.0); Lymphocytes Absolute Auto 1600 /uL (1100-4500); Lymphocytes Percent Auto 12.9 % (25-40); Mean Corpuscular Hemoglobin 20.3 PG (26-34); Mean Corpuscular Volume 65.4 fL (80-100); Monocytes Absolute Auto 600 /uL (0-900); Monocytes Percent Auto 4.9 % (3-14); Neutrophils Absolute Auto 9200 /uL (1500-7000); Neutrophils Percent Auto 76.9 % (50-75); Platelet Count 512 X10^3/uL (150-400); Red Blood Cell Count 4.28 X10^6/uL (4.0-5.2); Red Cell Distribution Width 19.2 % (11.6-14.8)
[2018-05-20] MEDS: ONDANSETRON 4 MG/2 ML INJ IV (01:52)
--- NOTE | 2018-05-20 01:55 | PC.NURSE ---
0120 Late entry: Sterile water instilled w/o but unable to remove all the fluid by mannual aspiration.
--- NOTE | 2018-05-20 01:59 | PC.NURSE ---
0135 Late entry: after the brown catheter replaced with 16 fr, initially draining yellow urine well for about 20ml, then flow stopped. Attempted to reflush the catheter with sterile water of 60ml, instill it w/o difficulty but unable to freely draw back but scant amount of drips the stopped. Informed Dr Weeks on the above. Stopped irrigation. Pt c/o discomfort in bladder and flanks.
[2018-05-20 02:01] LABS: Alanine Aminotransferase 27 IU/L (9-52); Albumin 4.3 g/dL (3.5-5.0); Albumin Globulin Ratio 1.4 (1.0-2.8); Alkaline Phosphatase 88 U/L (38-126); Aspartate Aminotransferase 21 IU/L (14-36); Bilirubin Total 0.2 mg/dL (0.2-1.3); Blood Urea Nitrogen 18 mg/dL (7-17); Calcium 9.5 mg/dL (8.4-10.2); Carbon Dioxide 24 mmol/L (22-32); Chloride 102 mmol/L (98-107); Estimated Glomerular Filt Rate 48.6 mL/min (>60); Globulin 3.1 g/dL (1.7-4.1); Glucose 91 mg/dL (70-100); HEMOLYSIS < 15 (0-50); Lipase 34 U/L (23-300); Sodium 136 mmol/L (137-145); Total Protein 7.4 g/dL (6.3-8.2)
[2018-05-20 02:06] LABS: Add Manual Diff / Slide Review SLIDE REVIEW
--- NOTE | 2018-05-20 02:29 | PC.NURSE ---
Upon pt returning from CT, noticed increased UOP in the brown bag
[2018-05-20] MEDS: MORPHINE 4 MG/ML INJ IV (03:30)
[2018-05-20] MEDS: PIPERACILLIN-TAZO 3.375 GM/50 ML FROZ.PIGGY IV ×3 (03:56→21:32)
[2018-05-20] MEDS: SODIUM CHLORIDE 0.9% 1,000 ML 125 ML IV (04:39)
--- NOTE | 2018-05-20 04:48 | PC.NURSE ---
0448 Admitted to room 204, ambulated from the gurney to the bed. Oriented to her room & reports I was here last month & I appreciated all the care the nursing staff had done. Denies any nausea & pain level is down to 2-3/10 & it's tolerable. Zosyn was infusing when she came up to the floor & done. NS @ 125 cc/hr infusing @ this time, NPO at this time. Will cont. POC & monitor.
[2018-05-20] MEDS: MORPHINE 2 MG/ML INJ IV (05:31)
[2018-05-20] MEDS: MORPHINE 5 MG/ML INJ 4 MG IV (06:53)
--- NOTE | 2018-05-20 06:54 | PC.NURSE ---
Morphine 4 mg. IVP did not scanned. Verified with another RN. Michaela Madison & admin.
--- NOTE | 2018-05-20 07:27 | PC.NURSE ---
Pt. reported 2 mg. of Morphine IVP, not effective pain control. Reported the 4 mg. IVP in ER helped my pain. Dr. Russ notified order received & implemented. Pt. pain level after 4 mg. Of Morphine down to 2-3, will monitor.
[2018-05-20 07:41] LABS: Anisocytosis 2+; Hypochromasia 2+; Microcytosis 3+
--- NOTE | 2018-05-20 09:07 | PM.PREOP ---
Pre-operative Note Interval Note History & Physical reviewed/Exam performed by Physician: Yes Changes to H&P: No
--- NOTE | 2018-05-20 09:15 | P.HPOB_ITS ---
History of Present Illness Reason for admission: other (Incisional abscess) Narrative: Reena Soto is a 47 year old female admitted for incisional abscess and pelvic pain [facility] Medical History Hiatal hernia (Acute) Anemia (Acute) Menorrhagia (Acute) Anxiety (Chronic) Asthma (Chronic) Depression (Chronic) Fibroids (Chronic) GERD (gastroesophageal reflux disease) (Chronic) Hypothyroidism (Chronic) Seizures (Chronic) Surgical History S/P partial hysterectomy (Acute) History of Hafsa fundoplication (Acute) History of anterior cruciate ligament surgery (Resolved 03/2014) History of cholecystectomy (Resolved 06/2013) History of gastrointestinal surgery (Resolved 07/2007) History of orthopedic surgery (Resolved 02/2003) History of sinus surgery (Resolved 04/2000) History of surgical removal of meniscus of knee (Resolved 01/2004) History of third molar tooth extraction (Resolved 1989) History of tonsillectomy (Resolved 05/1995) Status post laparoscopic cholecystectomy (Resolved 2013) Family History Father Blood clot in vein Grandfather Heart attack Cancer Grandmother Diabetes mellitus Mother Diabetes mellitus Social History household members: spouse Smoking Status: Never smoker alcohol intake: current Family History Father Blood clot in vein Grandfather Heart attack Cancer Grandmother Diabetes mellitus Mother Diabetes mellitus Social History household members: spouse Smoking Status: Never smoker alcohol intake: current Meds Home Medications Medication Instructions Recorded Confirmed Type beclomethasone diprop 80 1 puff INHALATION BID 11/19/17 05/20/18 History mcg/actuation HFA breath activated aerosol albuterol sulfate HFA 90 2 puff INHALATION Q6H PRN #18 gram 02/01/18 05/20/18 Rx mcg/actuation aerosol inhaler bupropion HCl XL 300 mg 24 hr 300 mg PO QAM #30 tab 02/01/18 05/20/18 Rx tablet, extended release ferrous sulfate 325 mg (65 mg 325 mg PO BID #60 tab 02/01/18 05/20/18 Rx iron) tablet levothyroxine 175 mcg tablet 175 mcg PO DAILY #90 tab 02/01/18 05/20/18 Rx omeprazole 40 mg capsule,delayed 40 mg PO DAILY #30 cap 02/01/18 05/20/18 Rx release sumatriptan 100 mg tablet 100 mg PO .COMPLEX PRN #30 tab 02/06/18 05/20/18 Rx oxycodone-acetaminophen [Percocet] 1 tab PO Q4-6H PRN #30 tab 05/04/18 05/20/18 Rx ondansetron HCl [Zofran] 4 mg PO BID-TID PRN #10 tab 05/06/18 05/20/18 Rx acetaminophen [Tylenol] 500 mg PO Q6-8H PRN 05/11/18 05/20/18 History etodolac 400 mg PO BID PRN 05/11/18 05/20/18 History metoclopramide HCl [Reglan] 10 mg PO Q6H PRN #10 tab 05/11/18 05/20/18 Rx paroxetine HCl 30 mg PO QPM 05/11/18 05/20/18 History nitrofurantoin macrocrystal 50 mg 50 mg PO BEDTIME #30 cap 05/17/18 05/20/18 Rx capsule meclizine [Motion Sickness 25 mg PO BID-TID PRN 05/20/18 05/20/18 History Relief(mecliz)] Allergies Allergy/AdvReac Type Severity Reaction Status Date / Time Sulfa (Sulfonamide Allergy Severe ANAPHYLACTI Verified 05/20/18 02:10 Antibiotics) C [SULFA (SULFONAMIDE ANTIBIOTICS)] meperidine [MEPERIDINE] AdvReac Mild CRABBY Verified 05/20/18 02:10 Review of Systems Review of Systems patient has not had any episodes of vertigo and has not taken her meclizine for 2 days. She is having regular bowel movements. She continues with indwelling Bernal catheter for healing after incidental cystotomy at laparoscopic supracervical hysterectomy on 05/04/2018. she complains pain going from her left lower quadrant towards her left flank. she thought that possibility her pain was because she was not having her bladder emptied with her catheter. This is what prompted her to go to the emergency room. She denies any fevers. She denies any vaginal bleeding. All systems reviewed & are unremarkable except as noted in HPI and below Exam Vital Signs (past 8 hours): - 05/20/18 02:57 05/20/18 05:00 Temperature 98.8 F Pulse Rate 91 H 92 H Respiratory Rate 18 16 Blood Pressure 148/82 H Blood Pressure [Right Arm] 143/66 H Pulse Oximetry 100 92 Oxygen Delivery Method Room Air Narrative Exam Narrative: HEENT exam within normal limits. Lungs are clear to auscultation and percussion. Heart is regular rate and rhythm no S3-S4 or murmurs. Abdomen is soft, nontender. Incisions are clean dry and intact without evidence of infection. No CVA tenderness. Catheter is draining clear yellow urine. Extremities without edema and nontender. Objective Imaging CT scan - abdomen: Radiologist's impression: 4-5 cm abscess just above the suprapubic incision site no other cause for the left flank pain Labs Result Diagrams: 05/20/18 01:42 05/20/18 01:42 Labs: Laboratory Results - last 24 hr 05/20/18 05/20/18 01:42 01:42 WBC 12.0 H RBC 4.28 Hgb 8.7 L Hct 28.0 L MCV 65.4 L MCH 20.3 L MCHC 31.0 RDW 19.2 H Plt Count 512 H Neut % (Auto) 76.9 H Lymph % (Auto) 12.9 L [place] % (Auto) 4.9 Eos % (Auto) 4.2 H Baso % (Auto) 1.1 Neut # (Auto) 9200 H Lymph # (Auto) 1600 [place] # (Auto) 600 Eos # (Auto) 500 H Baso # (Auto) 100 RBC Morphology See below Hypochromasia 2+ H Anisocytosis 2+ H Microcytosis 3+ H Sodium 136 L Potassium 4.0 Chloride 102 Carbon Dioxide 24 BUN 18 H Creatinine 1.20 H Estimated GFR 48.6 L BUN/Creatinine Ratio 15.0 Glucose 91 Calcium 9.5 Total Bilirubin 0.2 AST 21 ALT 27 Alkaline Phosphatase 88 Total Protein 7.4 Albumin 4.3 Globulin 3.1 Albumin/Globulin Ratio 1.4 Lipase 34 Assessment & Plan Assessment & Plan narrative: Incisional abscess unclear if this is where her left lower quadrant to left flank pain is from. patient will be taken to the operating room for drainage of the abscess. Consent form was signed and her questions answered. She is aware she will have packing that will need to be changed regularly. She lives with a nurse to will likely be able to help her change her packing. Quality VTE Deep Vein Thrombosis/Pulmonary Embolism Present on Admission: No
[2018-05-20] MEDS: LACTATED RINGERS 1,000 ML 42 ML IV (09:45)
--- NOTE | 2018-05-20 09:47 | PC.NURSE ---
Addendum entered by Michaela Juarez R.N. 05/20/18 14:53: Back to floor from surgery at 1130. Dressing to suprapubic area C/D/I. Rated pain 5/10 and was given 1 tab Percocet + Toradol and has been dozing off and on since then. Vitals stable, SpO2 97-100% on RA. Bernal patent. Tolerating PO's without N/V. IV fluids per order, site in L AC WNL. Able to make needs known and calls appropriately. Light in reach, bed alarm on out of abundance of caution. Original Note: Surgery: Off floor to surgery approx 0930. Consent signed and witnessed, in chart.
[2018-05-20] MEDS: CEFAZOLIN 2 GM/100 ML FROZ.PIGGY IV (10:00)
[2018-05-20] MEDS: ACETAMINOPHEN IV 1,000 MG/100 ML VIAL 400 MG IV (10:15)
--- NOTE | 2018-05-20 10:16 | SUR.OPER ---
Supine on padded OR bed, head on pillow, arms secured on padded arm boards at <90 degrees abduction, legs uncrossed, safety belt at thigh, tape over blanket over lower legs.
--- NOTE | 2018-05-20 10:27 | PM.OP.1 ---
Operative Date/Time/Diagnoses Date of procedure: 05/20/18 Time of procedure: 10:27 Pre-op diagnosis: Incisional abscess Post-op diagnosis: same Procedure & Clinicians Procedure: incision and drainage of incisional abscess Same procedure as scheduled: Yes Operative Notes Findings: seroma versus early incisional abscess of suprapubic incision site Closure Type: non-primary Specimen(s): other ( wound cultures) Applied: other ( gauze packing) Estimated Blood Loss (mL): 1 Blood products transfused: none Procedure in detail: Patient was brought to the operating room where she underwent general anesthesia. She was in a supine position with warming with blankets, pulsatile stockings in place and functional, Bernal in place. A check system was reviewed with the staff in the room prior to beginning the case. 2 g of Ancef were in prior to beginning of the case. The incision was injected with 0.5% Marcaine with epi. An incision was made with a scalpel and the incision was carried down to the level of the fascia and superior to the incision where the CT scan showed the abscess. There was some fluid but no obvious abscess. Cultures were taken. The incision was irrigated. The incision was packed with plain gauze. Patient went to recovery room in good condition. Counts of instruments and sponges were correct. Complications: none Condition: stable Disposition: Acute Care Plan for aftercare: 24 hrs of IV antibiotics Likely home in a.m.
[2018-05-20] MEDS: BUPIVACAINE 0.5% W/ EPI (PF) VIAL 10 ML INJ (10:33)
[2018-05-20] MEDS: OXYCODONE/ACETAMINOPHEN 5/325 TABLET 2 TAB PO ×4 (11:31→23:36)
[2018-05-20] MEDS: KETOROLAC 30 MG/ML VIAL IV (11:33)
[2018-05-20] MEDS: LACTATED RINGERS 1,000 ML 100 ML IV (11:37)
--- NOTE | 2018-05-20 13:17 | CM.DANOTE ---
Patient is a 47 year old female who was admitted on 05/20/18 for Cath Problems. Pt has [employer] for insurance and her PCP is Dr. Brooks. EMR was reviewed. Per MD, pt off the floor to the OR today for draining of identified abscess which has impacted her current brown cath. Patient recently had a hysterectomy with bladder damage and has required Urology to follow and a new brown cath had been placed recently and to stay in for 2 weeks and pt began having urinary/draining issues. Scan showed an abscess and pt was off the floor in the OR still when SW attempted bedside assessment. Plan: SW to follow closely to attempt bedside assessment again towards likely plan of home with spouse when medically stable. SW to follow for any further identified discharge planning needs. YOSVANY Brownlee Discharge Planning/Care Management CM Discharge Assessment Start: 05/20/18 13:15 Freq: Status: Active Protocol: Document 05/20/18 13:15 BF (Rec: 05/20/18 13:17 BF [id number]) Discharge Planning Assessment Assigned Energy Auditor YOSVANY Angel Advance Directives? No History Provided By Patient Medical Record Has Patient been admitted in last 30 No days? Comment Recent hysterectomy with bladder injury Prior Living Arrangements House Household Members spouse Type of transporation used prior to Drives own vehicle admit Comment Indep with ADL's at baseline. Independent with ADL's Yes Is patient alert and oriented? Yes Comment Likely home when medically stable. Barriers to Discharge No Discharge Plan Home Transportation Arrangement Spouse can likely provide transport at d/c. Referrals Initiated None needed Review Status In Process Please Provide Date Initial DC 05/20/18 Assessment Was Performed Next Review Type Continued Stay Review
--- NOTE | 2018-05-20 18:23 | P.PN_ITS ---
Subjective Date Patient Seen: 05/20/18 Time Patient Seen: 18:22 Interval history: Postop exploration of incision for abscess patient is sleeping so summary she did not notice examination of her abdomen. Exam Vital Signs (past 8 hours): - 05/20/18 10:35 05/20/18 10:40 05/20/18 10:45 Temperature 97.9 F Pulse Rate 85 77 75 Respiratory Rate 12 15 16 Blood Pressure 103/56 L 111/65 108/59 L Pulse Oximetry 99 96 99 05/20/18 10:53 05/20/18 11:00 05/20/18 11:30 Temperature 98.2 F 97.4 F L 97.5 F L Pulse Rate 87 82 82 Respiratory Rate 13 16 16 Blood Pressure 108/60 137/71 118/72 Pulse Oximetry 100 100 99 05/20/18 12:00 05/20/18 12:36 05/20/18 13:00 Temperature 97.2 F L 97.5 F L Pulse Rate 74 72 Respiratory Rate 16 16 Blood Pressure 106/60 111/58 L Pulse Oximetry 99 97 97 05/20/18 14:02 05/20/18 16:10 Temperature 97.7 F Pulse Rate 71 Respiratory Rate 20 Blood Pressure 116/47 L Pulse Oximetry 97 98 Oxygen Delivery Method Room Air Oxygen Flow Rate 0 Narrative Exam Narrative: Dressing is clean dry and intact Objective Labs Result Diagrams: 05/20/18 01:42 05/20/18 01:42 Labs: Laboratory Results - last 24 hr 05/20/18 05/20/18 01:42 01:42 WBC 12.0 H RBC 4.28 Hgb 8.7 L Hct 28.0 L MCV 65.4 L MCH 20.3 L MCHC 31.0 RDW 19.2 H Plt Count 512 H Neut % (Auto) 76.9 H Lymph % (Auto) 12.9 L [place] % (Auto) 4.9 Eos % (Auto) 4.2 H Baso % (Auto) 1.1 Neut # (Auto) 9200 H Lymph # (Auto) 1600 [place] # (Auto) 600 Eos # (Auto) 500 H Baso # (Auto) 100 RBC Morphology See below Hypochromasia 2+ H Anisocytosis 2+ H Microcytosis 3+ H Sodium 136 L Potassium 4.0 Chloride 102 Carbon Dioxide 24 BUN 18 H Creatinine 1.20 H Estimated GFR 48.6 L BUN/Creatinine Ratio 15.0 Glucose 91 Calcium 9.5 Total Bilirubin 0.2 AST 21 ALT 27 Alkaline Phosphatase 88 Total Protein 7.4 Albumin 4.3 Globulin 3.1 Albumin/Globulin Ratio 1.4 Lipase 34 Assessment & Plan Assessment & Plan narrative: continue IV antibiotics until tomorrow likely home in a.m. as she has remained afebrile and appears to be comfortable with pain medicine Quality VTE Deep Vein Thrombosis/Pulmonary Embolism Present on Admission: No
[2018-05-20] MEDS: PARoxetine 10 MG TABLET 30 MG PO (19:47)
[2018-05-20] MEDS: BECLOMETHASONE 80 MCG INH 10.6 GM 1 PUFF INH (23:54)
[2018-05-21 00:12] VITALS: O2SAT 100
[2018-05-21] MEDS: SODIUM CHLORIDE 0.9% FLUSH 10 ML IV ×3 (03:59→09:22)
[2018-05-21] MEDS: KETOROLAC 30 MG/ML VIAL IV ×2 (03:59→11:39)
[2018-05-21 04:11] VITALS: BP 139/63; PULSE 76; RESP 18; TEMP 36.8; O2SAT 100
[2018-05-21] MEDS: OXYCODONE/ACETAMINOPHEN 5/325 TABLET 2 TAB PO ×2 (04:31→11:39)
[2018-05-21] MEDS: PIPERACILLIN-TAZO 3.375 GM/50 ML FROZ.PIGGY IV (05:50)
[2018-05-21] MEDS: LEVOTHYROXINE 75 MCG TABLET PO (05:51)
[2018-05-21] MEDS: LEVOTHYROXINE 100 MCG TABLET PO (05:51)
[2018-05-21 06:04] LABS: Basophils Absolute Auto 0 /uL (0-100); Basophils Percent Auto 0.3 % (0-2); Eosinophils Absolute Auto 0 /uL (0-450); Hematocrit 25.1 % (36-46); Hemoglobin 7.8 g/dL (12.0-16.0); Lymphocytes Absolute Auto 800 /uL (1100-4500); Lymphocytes Percent Auto 9.9 % (25-40); Mean Corpuscular HGB Conc 31.2 % (30-36); Mean Corpuscular Hemoglobin 20.4 PG (26-34); Mean Corpuscular Volume 65.5 fL (80-100); Monocytes Absolute Auto 300 /uL (0-900); Monocytes Percent Auto 4.1 % (3-14); Neutrophils Absolute Auto 7300 /uL (1500-7000); Neutrophils Percent Auto 85.7 % (50-75); Platelet Count 467 X10^3/uL (150-400); Red Blood Cell Count 3.84 X10^6/uL (4.0-5.2); White Blood Cell Count 8.5 X10^3/uL (4.5-11.0)
[2018-05-21 06:06] LABS: Add Manual Diff / Slide Review SLIDE REVIEW
[2018-05-21] MEDS: PANTOPRAZOLE 40 MG TABLET PO (06:21)
[2018-05-21 06:25] LABS: BUN Creatinine Ratio 13.8 (6-22); Blood Urea Nitrogen 11 mg/dL (7-17); Carbon Dioxide 26 mmol/L (22-32); Chloride 104 mmol/L (98-107); Estimated Glomerular Filt Rate > 60.0 mL/min (>60); Glucose 116 mg/dL (70-100); HEMOLYSIS < 15 (0-50); Potassium 4.2 mmol/L (3.4-5.1); Sodium 137 mmol/L (137-145)
[2018-05-21 06:38] LABS: Anisocytosis 2+; Hypochromasia 2+; Microcytosis 3+; Ovalocytes 1+
[2018-05-21 08:16] VITALS: BP 116/75; PULSE 85; RESP 16; TEMP 36.8; O2SAT 100
[2018-05-21] MEDS: buPROPion XL 150 MG TAB 300 MG PO (08:43)
[2018-05-21] MEDS: BECLOMETHASONE 80 MCG INH 10.6 GM 1 PUFF INH (09:15)
[2018-05-21 09:16] VITALS: PULSE 73; RESP 12; O2SAT 98
[2018-05-21] MEDS: ONDANSETRON 4 MG ODT SL (10:38)
[2018-05-21 11:17] VITALS: BP 146/83; PULSE 86; RESP 17; TEMP 36.9; O2SAT 97
--- NOTE | 2018-05-21 12:16 | P.DS_ITS ---
History of Present Illness Date Patient Seen: 05/21/18 Time Patient Seen: 12:12 Chief complaint: CATHETER PROBLEMS/SURG ON 05/04/18 Narrative: pain from bladder catheter occlusion with a blood clot, I and D a incision seroma Discharge Providers Date of admission: 05/20/18 03:29 Discharge Date: 05/21/18 Primary care physician: REHAN Alvares Consults: 05/20/18 03:26 Consult to Physician Routine Comment: Consulting Provider: Vivian Russ Reason for consultation: Admission Has provider been notified: Yes Discharge provider: Vivian Russ MD Summary Discharge Diagnosis: incisional seroma Hospital Course: Patient came to the hospital complaining of significant left- sided flank pain. Most likely the pain was from Occlusion of the Bernal catheter in place after a incidental cystotomy during a laparoscopic supracervical hysterectomy. However, her white blood cell count was slightly elevated and her CT scan showed a 5 x 6 cm rim enhancing fluid collection thought to be an incisional abscess. She was taken to the operating room and the incision was explored with evidence of a seroma only. The patient had postoperative nausea. She remained afebrile and her white count was normal on repeat. She had a slightly elevated creatinine which returned to normal. Her pain is under control. She will be discharged home with daily incisional packing. She lives with a nurse who will be able to do the packing. The procedure was reviewed with her prior to discharge. Status at Discharge Functional status at discharge: independent ambulation Overall status at discharge: patient is progressing back to baseline Time Spent with Patient Less than 30 minutes Exam Vital Signs (past 8 hours): - 05/21/18 08:16 05/21/18 09:16 05/21/18 11:17 Temperature 98.3 F 98.4 F Pulse Rate 85 73 86 Respiratory Rate 16 12 17 Blood Pressure 116/75 146/83 H Pulse Oximetry 100 98 97 Oxygen Delivery Method Room Air Oxygen Flow Rate 0 Narrative Exam Narrative: no CVA tenderness. Abdomen is soft nontender. The packing was removed from the incision and the incision repacked. No evidence of infection. Extremities without edema nontender. Objective Labs Result Diagrams: 05/21/18 05:50 05/21/18 05:50 Labs: Laboratory Results - last 24 hr 05/21/18 05/21/18 05:50 05:50 WBC 8.5 RBC 3.84 L Hgb 7.8 L Hct 25.1 L MCV 65.5 L MCH 20.4 L MCHC 31.2 RDW 19.0 H Plt Count 467 H Neut % (Auto) 85.7 H Lymph % (Auto) 9.9 L [place] % (Auto) 4.1 Eos % (Auto) 0.0 L Baso % (Auto) 0.3 Neut # (Auto) 7300 H Lymph # (Auto) 800 L [place] # (Auto) 300 Eos # (Auto) 0 Baso # (Auto) 0 RBC Morphology See below Hypochromasia 2+ H Anisocytosis 2+ H Microcytosis 3+ H Ovalocytes 1+ H Sodium 137 Potassium 4.2 Chloride 104 Carbon Dioxide 26 BUN 11 Creatinine 0.80 Estimated GFR > 60.0 BUN/Creatinine Ratio 13.8 Glucose 116 H Calcium 9.0 Discharge Plan Discharge Plan Patient Disposition: Home Discharge Med Rec/Prescriptions Prescriptions: Continued beclomethasone dipropionate [Qvar RediHaler] 80 mcg/actuation HFA aerosol breath activated 1 puff INHALATION BID RF: 0 ferrous sulfate 325 mg (65 mg iron) tablet 325 mg PO BID Qty: 60 RF: 0 bupropion HCl [Wellbutrin XL] 300 mg tablet extended release 24 hr 300 mg PO QAM Qty: 30 RF: 5 levothyroxine 175 mcg tablet 175 mcg PO DAILY Qty: 90 RF: 4 albuterol sulfate [Ventolin HFA] 90 mcg/actuation HFA aerosol inhaler 2 puff INHALATION Q6H PRN (Reason: shortness of breath or wheezing) Qty: 18 RF: 1 omeprazole 40 mg capsule,delayed release(DR/EC) 40 mg PO DAILY Qty: 30 RF: 5 sumatriptan succinate 100 mg tablet 100 mg PO .COMPLEX PRN (Reason: migraine headache) Qty: 30 RF: 0 acetaminophen [Tylenol] 325 mg Tablet 500 mg PO Q6-8H PRN (Reason: pain or headache) RF: 0 paroxetine HCl 30 mg tablet 30 mg PO QPM RF: 0 etodolac 400 mg tablet 400 mg PO BID PRN (Reason: pain) RF: 0 metoclopramide HCl [Reglan] 10 mg tablet 10 mg PO Q6H PRN (Reason: nausea and vomiting) Qty: 10 RF: 0 meclizine [Motion Sickness Relief(mecliz)] 25 mg tablet,chewable 25 mg PO BID-TID PRN (Reason: motion sickness) RF: 0 nitrofurantoin macrocrystal [Macrodantin] 50 mg capsule 50 mg PO BEDTIME Qty: 14 RF: 1 oxycodone-acetaminophen [Percocet] 5-325 mg tablet 1 tab PO Q4-6H PRN (Reason: pain) Qty: 30 RF: 0 ondansetron HCl [Zofran] 4 mg tablet 4 mg PO BID-TID PRN (Reason: nausea and vomiting) Qty: 10 RF: 0 Follow up/Referrals: Vivian Russ MD [Physician] - 05/24/18 (Incision check) Adriel Brooks ARNP [Primary Care Provider] - Provider Discharge Instructions Diet: Regular Skin/Wound/Dressing Care Report to your healthcare provider any signs of infection, such as:: chills, fever, increased pain and unusual redness Dressing: change once a day Discharge Data Primary Care Provider: Adriel Brooks Attending Provider: Vivian Russ Admit Date/Time: 05/20/18 03:29 Quality VTE Deep Vein Thrombosis/Pulmonary Embolism Present on Admission: No
--- NOTE | 2018-05-21 12:39 | CM.DPC ---
DCP Discharge Home Per MD, pt is medically stable to d/c home with oral medications and no identified barriers to discharge. Pt has support at home to help with daily bandage/packing and pt has transport home. Plan: Patient to d/c home today via POV and no SW needs at this time. YOSVANY Brownlee
--- NOTE | 2018-05-21 14:01 | PC.NURSE ---
Discharge instructions reviewed with patient and her and given supplies for dressing changes to get started until they are able to purchase more supplies at store. Dr. Russ changed dressing with patient, her and patient's mother in law who is an nurse, and patient feels comfortable with dressing changes at home. Prescriptions given to patient. IV dc'd intact. Bernal changed to leg bag. Patient has no further questions or concerns at this time. Patient states she will call office tomorrow to ensure follow up appointment for wound check is scheduled.
== END 2018-05-21 14:30 | disposition home or self-care (01) ==
LOC: ED 03:28 → AC 03:29
PROVIDERS: Admitting Provider Specialist; Emergency Provider Emergency Medicine; Family Provider Obstetrics & Gynecology; PCP Nurse Practitioner Family; Visit Provider Specialist
PROC: (CPT 10140; principal; 2018-05-20 09:40)
DX: L76.34 Postprocedural seroma of skin and subcutaneous tissue following other procedure (principal); Z98.890 Other specified postprocedural states; D64.9 Anemia, unspecified; F41.9 Anxiety disorder, unspecified; F32.9 Major depressive disorder, single episode, unspecified; K21.9 Gastro-esophageal reflux disease without esophagitis; E03.9 Hypothyroidism, unspecified
CPT/HCPCS: 10140; 36415; 36591; 51700; 51701; 51705; 51798; 74177; 80048; 80053; 83690; 85025; 87070; 87075; 87205; 94640; 94760; 96374; 96375; 99284; 99285; G0378; J0131; J0690; J1100; J1885; J2270; J2405; J2543; J2704; J3010; Q9967

== ENCOUNTER → 2018-05-24 09:22 | Outpatient (CLI) | payer OTHER, SELFPAY ==
[2018-05-20 04:11] VITALS: BMI 35.0
--- NOTE | 2018-05-24 | DI.CT.S_ITS ---
PROCEDURE: CT PELVIS WO/W CON INDICATIONS: ACCIDENTAL PUNCTURE AND LACERATION OF GENITOURINAR TECHNIQUE: Both before and after gravity instillation of 10% Isovue contrast solution into the bladder through a Bernal catheter, 5 mm axial images acquired from the bladder dome to the symphysis. 5 mm thick coronal and sagittal reformats were acquired. For radiation dose reduction, the following was used: automated exposure control, adjustment of mA and/or kV according to patient size. COMPARISON: Located Within [facility], US, US PELVIC COMPLETE, 02/23/2018, 9:28. Located Within [facility], RF, FL CYSTOGRAM, 05/15/2018, 12:01. Located Within [facility], CT, CT ABDOMEN PELVIS W CON, 05/20/2018, 1:31. FINDINGS: Image quality: Excellent. Genitourinary: Bladder wall thickness is normal. No contrast extravasation. The upper anterior bladder contour is bifid, with a equivalent extension directed anteriorly both on the right in the left, and without extravasation of contrast into the adjacent anterior soft tissues. Distal portions of both ureters are normal in caliber. Peritoneum and bowel: Unenhanced bowel loops are normal in caliber and wall thickness. No pathologic free pelvic fluid. Nodes and vessels: No iliac, pelvic, or inguinal adenopathy by size criteria. Iliac vessels are normal in size. Bones: No suspicious bony lesions. Miscellaneous: No inguinal hernias. Note is made of a ovoid right ovarian cyst as was previously the case, measuring up to 2.3 x 3.2 cm. There is a small amount of postoperative fluid in the lower midline subcutaneous anterior pelvic body wall fat. This measures approximately 2 x 4.7 cm in maximal AP and transverse dimensions. What appears to be a surgical wound opens to the skin surface also at the lower midline of the pelvis, best seen centered on series 2 image 73. IMPRESSION: Extravasation of instilled contrast into the bladder lumen through the Bernal catheter is not identified. The anterior upper bladder margin is bifid in its morphology, with both a left-sided and right-sided anterior projecting recess. Postsurgical change in the subcutaneous fat of the low mid line anterior pelvic body wall, most likely a postoperative hematoma/seroma. No contrast extravasated into this area. Again noted is a right ovarian cyst, measuring approximately 2.3 x 3.2 cm. Normal appendix found. Postsurgical changes of hysterectomy. Dictated by: Lei Hendrickson M.D. on 05/24/2018 at 10:40 Approved by: Lei Hendrickson M.D. on 05/24/2018 at 10:51
== END ==
PROVIDERS: Family Provider Obstetrics & Gynecology; PCP Family Medicine; Visit Provider Specialist
DX: N99.71 Accidental puncture and laceration of a genitourinary system organ or structure during a genitourinary system procedure (principal); N83.201 Unspecified ovarian cyst, right side; Z90.710 Acquired absence of both cervix and uterus
CPT/HCPCS: 72194

== ENCOUNTER → 2018-06-29 11:03 | Outpatient (CLI) | payer OTHER, SELFPAY ==
[2018-05-20 04:11] VITALS: BMI 35.0
== END ==
PROVIDERS: Family Provider Obstetrics & Gynecology; PCP Family Medicine; Visit Provider Physician Assistant
DX: N12 Tubulo-interstitial nephritis, not specified as acute or chronic (principal)
CPT/HCPCS: 87077; 87086; 87186

== ENCOUNTER 2018-07-04 10:59 | Inpatient (IN) | payer OTHER, SELFPAY ==
[2018-05-20 04:11] VITALS: BMI 35.0
[2018-07-04 11:12] VITALS: BMI 34.3
[2018-07-04 11:15] VITALS: BP 147/86; PULSE 83; RESP 16; TEMP 36.7; O2SAT 100
[2018-07-04] MEDS: DEXTROSE 5%-0.45% NS 1,000 ML 200 ML IV ×2 (11:47→20:11)
[2018-07-04 11:58] LABS: Basophils Absolute Auto 100 /uL (0-100); Basophils Percent Auto 0.8 % (0-2); Eosinophils Absolute Auto 300 /uL (0-450); Eosinophils Percent Auto 3.4 % (2-4); Hematocrit 26.7 % (36-46); Hemoglobin 8.2 g/dL (12.0-16.0); Lymphocytes Absolute Auto 1100 /uL (1100-4500); Lymphocytes Percent Auto 15.2 % (25-40); Mean Corpuscular HGB Conc 30.8 % (30-36); Mean Corpuscular Hemoglobin 20.2 PG (26-34); Mean Corpuscular Volume 65.6 fL (80-100); Monocytes Absolute Auto 500 /uL (0-900); Monocytes Percent Auto 6.3 % (3-14); Neutrophils Absolute Auto 5500 /uL (1500-7000); Neutrophils Percent Auto 74.3 % (50-75); Platelet Count 397 X10^3/uL (150-400); Red Blood Cell Count 4.07 X10^6/uL (4.0-5.2); Red Cell Distribution Width 18.6 % (11.6-14.8); White Blood Cell Count 7.4 X10^3/uL (4.5-11.0)
[2018-07-04] MEDS: ONDANSETRON 4 MG/2 ML INJ IV (11:59)
[2018-07-04] MEDS: levoFLOXacin 500 MG/100 ML PIGGYBACK 100 MG IV (11:59)
[2018-07-04 12:03] LABS: Add Manual Diff / Slide Review SLIDE REVIEW
[2018-07-04 12:10] LABS: Alanine Aminotransferase 23 IU/L (9-52); Albumin 3.9 g/dL (3.5-5.0); Albumin Globulin Ratio 1.5 (1.0-2.8); Alkaline Phosphatase 80 U/L (38-126); Aspartate Aminotransferase 18 IU/L (14-36); BUN Creatinine Ratio 16.3 (6-22); Bilirubin Total 0.3 mg/dL (0.2-1.3); Blood Urea Nitrogen 13 mg/dL (7-17); Calcium 8.8 mg/dL (8.4-10.2); Carbon Dioxide 23 mmol/L (22-32); Chloride 104 mmol/L (98-107); Estimated Glomerular Filt Rate > 60.0 mL/min (>60); Globulin 2.6 g/dL (1.7-4.1); Glucose 104 mg/dL (70-100); HEMOLYSIS < 15 (0-50); Potassium 3.6 mmol/L (3.4-5.1); Sodium 137 mmol/L (137-145); Total Protein 6.5 g/dL (6.3-8.2)
[2018-07-04 12:26] LABS: Anisocytosis 2+; Microcytosis 2+; Poikilocytosis 1+
[2018-07-04 12:27] LABS: Hypochromasia 1+
--- NOTE | 2018-07-04 13:33 | PC.NURSE ---
day shift pt arrived a little before 1130 from clinic is a direct admit, arrived via w/c is A&O. able to make needs known, c/o feeling nauseated, iv started, ivf running, iv abx infusing. 1340- dr lunsford into see pt reveived verbal orders for NS 500ml iv fluid bolus, reglan 10mg iv q 8h, and to order home inhalers per home orders.
[2018-07-04] MEDS: METOCLOPRAMIDE 10 MG/2 ML INJ IV ×2 (13:47→17:55)
[2018-07-04] MEDS: SODIUM CHLORIDE 0.9% 500 ML IV (13:48)
[2018-07-04 16:48] VITALS: BP 149/85; PULSE 75; RESP 19; TEMP 36.6; O2SAT 98
[2018-07-04] MEDS: BECLOMETHASONE 80 MCG INH 10.6 GM 1 PUFF INH (17:46)
[2018-07-04 17:50] VITALS: PULSE 74; RESP 14; O2SAT 100
--- NOTE | 2018-07-04 18:04 | PC.NURSE ---
Addendum entered by Mee Velázquez R.N. 07/04/18 22:15: Correction to previous entry. Pt was a direct admit earlier this morning. Not a fresh post op of today. Original Note: Addendum entered by Mee Velázquez R.N. 07/04/18 21:26: Stable post op course Resting quietly throughout evening. IVF continue as per orders. SBA to BR w/o incidence. Call light w/in reach, bed alarm on for pt safety. Continue w/plan of care. Original Note: Pt resting quietly this afternoon. Lungs clear, SpO2 97% AR Assisted to BR, voided 250 clear yellow urine. IV infusing as per orders into the left arm via pump w/o incidence. Med @ 1805 w/reglan for nausea. Call light w/in reach. Pt calls appropriately for needs.
[2018-07-04] MEDS: SODIUM CHLORIDE 0.45% 1,000 ML 500 ML IV (18:08)
[2018-07-04] MEDS: PHENAZOPYRIDINE 100 MG TABLET PO (20:07)
[2018-07-04 20:57] VITALS: BP 112/53; PULSE 75; RESP 17; TEMP 36.3; O2SAT 99
[2018-07-04 23:25] VITALS: BP 124/67; PULSE 63; RESP 18; TEMP 36.7; O2SAT 100
[2018-07-05] VITALS (9 sets, daily range): BP systolic 123–149; BP diastolic 65–91; PULSE 65–77; RESP 14–20; TEMP 36.3–37.2; O2SAT 98–100
[2018-07-05] MEDS: DEXTROSE 5%-0.45% NS 1,000 ML 200 ML IV ×4 (02:25→20:56)
[2018-07-05] MEDS: LEVOTHYROXINE 50 MCG TABLET PO (06:01)
[2018-07-05] MEDS: LEVOTHYROXINE 125 MCG TABLET PO (06:01)
[2018-07-05] MEDS: ONDANSETRON 4 MG/2 ML INJ IV ×2 (06:05→16:19)
[2018-07-05] MEDS: PANTOPRAZOLE 40 MG VIAL 20 MG IV (08:24)
[2018-07-05] MEDS: buPROPion XL 150 MG TAB 300 MG PO (08:24)
[2018-07-05] MEDS: PARoxetine 10 MG TABLET 30 MG PO (08:24)
[2018-07-05] MEDS: PHENAZOPYRIDINE 100 MG TABLET PO ×3 (08:24→20:55)
--- NOTE | 2018-07-05 08:51 | CM.DANOTE ---
DCP: Case received, EMR reviewed and met with patient. Introduced self and role. DCP template completed with information currently available. Patient is a 47 year old female who admitted yesterday morning to the care of the hospitalist team. PCP: Lauren Villalpando. Payer: [facility]: [facility]. Patient came to hospital from Dr. Carney's office, secondary to exacerbated symptoms of kidney infection. She had recently been at walk in clinic and placed on antibiotics, which she stated, didn't work. She is diagnosed with Pyelonephritis. Met with her in her room, pleasant. Lives in [place] with her Josias. 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 P: DCP to continue to follow. She should be able to go home when she is medically stable. Maryellen Victor RN/[employer] Lab Technician
[2018-07-05] MEDS: BECLOMETHASONE 80 MCG INH 10.6 GM 1 PUFF INH ×2 (09:13→19:23)
[2018-07-05] MEDS: ALBUTEROL HFA 60 PUFF/8 GM INH INH ×2 (09:13→19:30)
--- NOTE | 2018-07-05 11:28 | PC.NURSE ---
Addendum entered by Amanda Brown R.N. 07/05/18 14:44: pt has been resting comfortably, continues to have IVF going, still having frequency, post void residual was 108ml, denies feeling like she is not emptying her bladder. call light within reach continue to encourage oral fluids Original Note: Day shift Pt is A&O able to make needs known. reports she does feel better today. continues to have frequency with urination and dribbling, reports the burning is getting better. encouraged fluids, does have poor apatite. SBA to bathroom. IVF infusing per order. Call light within reach.
[2018-07-05] MEDS: levoFLOXacin 500 MG/100 ML PIGGYBACK 100 MG IV (12:24)
--- NOTE | 2018-07-05 16:23 | PC.NURSE ---
Addendum entered by Mee Velázquez R.N. 07/05/18 21:22: Pt had relatively uneventful evening. IVF decreased to 100cc/hr per MD orders. Independent in room to BR w/o incidence. New IV site established in [place] Call light w/in reach, pt calls appropriately for needs. Continue w/plan of care. Original Note: Pt up independently in room w/o incidence. SpO2 98% RA IV D5 1/2NS @ 200cc/hr infusing via pump into the LAC w/o incidence. Med at this time w/zofran for some slight nausea. Abd soft, +BT, pt states passing flatus. Healing lower abdominal incision. Call light w/in reach, pt calls appropriatly for needs.
[2018-07-05] MEDS: AMPICILLIN 500 MG in SODIUM CHLORIDE 0.9% 100 ML 200 ML IV (20:50)
[2018-07-06] MEDS: ZOLPIDEM 5 MG TABLET PO (00:04)
[2018-07-06] MEDS: AMPICILLIN 500 MG in SODIUM CHLORIDE 0.9% 100 ML 200 ML IV ×4 (02:54→20:45)
[2018-07-06] MEDS: MORPHINE 2 MG/ML INJ IV ×2 (03:52→20:45)
--- NOTE | 2018-07-06 05:35 | PC.NURSE ---
NOC Note: pt took Ambien at 2355, she reported feeling anxious and seeing bugs in her room at about 350am. I knows that the bug are not there and requested PRn Morphine for left flank pain at that time. Pt appears to be resting quietly at this time.
[2018-07-06] MEDS: LEVOTHYROXINE 50 MCG TABLET PO (06:12)
[2018-07-06] MEDS: LEVOTHYROXINE 125 MCG TABLET PO (06:12)
[2018-07-06] MEDS: DEXTROSE 5%-0.45% NS 1,000 ML 100 ML IV ×2 (08:07→19:18)
[2018-07-06 09:02] VITALS: BP 122/63; PULSE 69; RESP 15; TEMP 37.3; O2SAT 97
[2018-07-06 09:30] VITALS: PULSE 83; RESP 14; O2SAT 99
[2018-07-06] MEDS: BECLOMETHASONE 80 MCG INH 10.6 GM 1 PUFF INH ×2 (09:44→18:09)
[2018-07-06] MEDS: PARoxetine 10 MG TABLET 30 MG PO (09:59)
[2018-07-06] MEDS: PHENAZOPYRIDINE 100 MG TABLET PO ×3 (10:00→20:45)
[2018-07-06] MEDS: buPROPion XL 150 MG TAB 300 MG PO (10:00)
[2018-07-06] MEDS: PANTOPRAZOLE 40 MG VIAL 20 MG IV (10:04)
[2018-07-06 12:00] VITALS: BP 140/76; PULSE 81; RESP 16; TEMP 37.4; O2SAT 99
[2018-07-06] MEDS: levoFLOXacin 500 MG/100 ML PIGGYBACK 100 MG IV (12:18)
[2018-07-06 15:34] VITALS: BP 136/72; PULSE 77; RESP 18; TEMP 36.8; O2SAT 100
[2018-07-06] MEDS: ONDANSETRON 4 MG/2 ML INJ IV (15:44)
--- NOTE | 2018-07-06 15:59 | PC.NURSE ---
Addendum entered by Pam Nath R.N. 07/06/18 22:14: Requests morphine iv @ hs to allow for rest. States left flank pain 3/10. No further c/o nausea. Now resting quietly in bed without signs of distress or discomfort. Original Note: Pt awake and alert lying in bed. Admits to nausea and zofran administered as ordered. Jayda kenya and saltines provided per pt request. Pt admits to left flank pain 4/10, but declines morphine. States will wait for Dr. Carney to make rounds to request tylenol. Independent to bathroom to void. Reports feels as though bladder is emptying completely. Healing transverse abdominal incision. IV fluids infusing as ordered to right ac without difficulty.
--- NOTE | 2018-07-06 17:23 | P.HP_ITS ---
History of Present Illness Date Patient Seen: 07/04/18 Time Patient Seen: 17:19 Chief complaint: pyelonephitis, N/V Narrative: Patient is a 47-year-old who presented to the office today for a scheduled visit for catheter removal. She is having nausea and vomiting. She was diagnosed with pyelonephritis 5 days ago. She has been unable to keep down the antibiotic since 07/01/18. No fever or chills. Patient is having significant left-sided back pain. Culture grew out enterococcus which was sensitive to pretty much everything including ciprofloxacin, which the patient was placed on at the walk-in clinic, Levaquin, ampicillin, and nitrofurantoin. Patient is status post a laparoscopic supracervical hysterectomy 8 weeks ago and sustained a bladder laceration that was repaired. She has had the catheter in ever since. Patient also had a seroma postoperatively and the incision was opened and the seroma drained. She had packed it for few weeks and this is now closed. Patient History Medical History (Updated 07/06/18 @ 17:23 by Mee Carney MD) Anemia (Acute) Hiatal hernia (Acute) Menorrhagia (Acute) Anxiety (Chronic) Asthma (Chronic) Depression (Chronic) Fibroids (Chronic) GERD (gastroesophageal reflux disease) (Chronic) Hypothyroidism (Chronic) Seizures (Chronic) Surgical History (Updated 05/20/18 @ 03:22 by Bala Caba RN) History of Hafsa fundoplication (Acute) S/P partial hysterectomy (Acute) History of anterior cruciate ligament surgery (Resolved 03/2014) History of cholecystectomy (Resolved 06/2013) History of gastrointestinal surgery (Resolved 07/2007) History of orthopedic surgery (Resolved 02/2003) History of sinus surgery (Resolved 04/2000) History of surgical removal of meniscus of knee (Resolved 01/2004) History of third molar tooth extraction (Resolved 1989) History of tonsillectomy (Resolved 05/1995) Status post laparoscopic cholecystectomy (Resolved 2013) Family History (Updated 03/01/18 @ 08:52 by Geeta Sullivan) Father Blood clot in vein Grandfather Heart attack Cancer Grandmother Diabetes mellitus Mother Diabetes mellitus Social History household members: spouse Smoking Status: Never smoker alcohol intake: current Family & Social History Family History (Updated 03/01/18 @ 08:52 by Geeta Sullivan) Father Blood clot in vein Grandfather Heart attack Cancer Grandmother Diabetes mellitus Mother Diabetes mellitus Social History: household members spouse Prior Living Arrangements House Safety & Behavioral: Feels Safe in Current Yes Environment Been Physically Hurt or No Threatened By a Person Suicidal Ideation Description None Suicide Plan Description No Plan Tobacco & Substance use: Smoking Status Never smoker alcohol intake current alcohol intake frequency holiday/special occasion Substance Use Type marijuana Meds Home Medications Medication Instructions Recorded Confirmed Type beclomethasone diprop 80 1 puff INHALATION BID 11/19/17 07/04/18 History mcg/actuation HFA breath activated aerosol albuterol sulfate HFA 90 2 puff INHALATION Q6H PRN #18 gram 02/01/18 07/04/18 Rx mcg/actuation aerosol inhaler bupropion HCl XL 300 mg 24 hr 300 mg PO QAM #30 tab 02/01/18 07/04/18 Rx tablet, extended release ferrous sulfate 325 mg (65 mg 325 mg PO BID #60 tab 02/01/18 07/04/18 Rx iron) tablet levothyroxine 175 mcg tablet 175 mcg PO DAILY #90 tab 02/01/18 07/04/18 Rx omeprazole 40 mg capsule,delayed 40 mg PO DAILY #30 cap 02/01/18 07/04/18 Rx release sumatriptan 100 mg tablet 100 mg PO .COMPLEX PRN #30 tab 02/06/18 07/04/18 Rx acetaminophen [Tylenol] 500 mg PO Q6-8H PRN 05/11/18 07/04/18 History etodolac 400 mg PO BID PRN 05/11/18 07/04/18 History nitrofurantoin macrocrystal 50 mg PO BEDTIME #14 cap 05/21/18 07/04/18 Rx [Macrodantin] paroxetine 30 mg tablet 30 mg PO QPM #90 tab 06/26/18 07/04/18 Rx Allergies Allergy/AdvReac Type Severity Reaction Status Date / Time Sulfa (Sulfonamide Allergy Severe ANAPHYLACTI Verified 06/29/18 10:00 Antibiotics) C [SULFA (SULFONAMIDE ANTIBIOTICS)] meperidine [MEPERIDINE] AdvReac Mild CRABBY Verified 06/29/18 10:00 Exam Vital Signs (past 8 hours): - 07/06/18 09:30 07/06/18 12:00 07/06/18 15:34 Temperature 99.3 F 98.2 F Pulse Rate 83 81 77 Respiratory Rate 14 16 18 Blood Pressure 140/76 136/72 Pulse Oximetry 99 99 100 Oxygen Delivery Method Room Air Oxygen Flow Rate 0 Narrative Exam Narrative: Generally: Patient lying on her right side, in moderate distress secondary to left-sided back pain. Lungs: Clear to auscultation bilaterally Cardiovascular: Regular rate and rhythm Abdomen: Well-healed laparoscopy scars. The suprapubic incision is well- healed. No erythema or drainage. Back: Left CVA tenderness. Extremities: Negative Homans, no edema Objective Labs Result Diagrams: 07/04/18 11:30 07/04/18 11:30 Assessment & Plan (1) Pyelonephritis: Current visit: Yes Status: Acute Assessment & Plan narrative: Assessment: 47-year-old with left pyelonephritis Plan: Catheter removed and patient able to void without the catheter IV Levaquin Antiemetics and pain management Quality VTE Deep Vein Thrombosis/Pulmonary Embolism Present on Admission: No
[2018-07-06 18:09] VITALS: PULSE 77; RESP 14; O2SAT 99
[2018-07-06] MEDS: ACETAMINOPHEN 325 MG TABLET 650 MG PO (19:17)
[2018-07-06 23:00] VITALS: BP 130/70; PULSE 85; RESP 16; TEMP 36.8; O2SAT 96
[2018-07-07] MEDS: MORPHINE 2 MG/ML INJ IV (02:00)
[2018-07-07] MEDS: ONDANSETRON 4 MG/2 ML INJ IV (02:06)
[2018-07-07] MEDS: AMPICILLIN 500 MG in SODIUM CHLORIDE 0.9% 100 ML 200 ML IV ×2 (02:46→08:30)
[2018-07-07] MEDS: DEXTROSE 5%-0.45% NS 1,000 ML 100 ML IV (06:20)
[2018-07-07] MEDS: LEVOTHYROXINE 125 MCG TABLET PO (06:20)
[2018-07-07] MEDS: LEVOTHYROXINE 50 MCG TABLET PO (06:20)
[2018-07-07 07:27] VITALS: PULSE 73; RESP 12; O2SAT 99
[2018-07-07] MEDS: BECLOMETHASONE 80 MCG INH 10.6 GM 1 PUFF INH (07:27)
[2018-07-07 07:30] VITALS: BP 148/67; PULSE 73; RESP 16; TEMP 36.6; O2SAT 99
[2018-07-07] MEDS: PANTOPRAZOLE 40 MG VIAL 20 MG IV (08:20)
[2018-07-07] MEDS: PARoxetine 10 MG TABLET 30 MG PO (08:24)
[2018-07-07] MEDS: PHENAZOPYRIDINE 100 MG TABLET PO (08:25)
[2018-07-07] MEDS: METOCLOPRAMIDE 10 MG/2 ML INJ IV (08:27)
[2018-07-07] MEDS: buPROPion XL 150 MG TAB 300 MG PO (08:29)
--- NOTE | 2018-07-07 12:01 | PM.DS.1 ---
History of Present Illness Date Patient Seen: 07/07/18 Time Patient Seen: 07:45 Chief complaint: pyelonephitis, N/V Narrative: Patient is a 47-year-old who presented to the office today for a scheduled visit for catheter removal. She is having nausea and vomiting. She was diagnosed with pyelonephritis 5 days ago. She has been unable to keep down the antibiotic since 07/01/18. No fever or chills. Patient is having significant left-sided back pain. Culture grew out enterococcus which was sensitive to pretty much everything including ciprofloxacin, which the patient was placed on at the walk-in clinic, Levaquin, ampicillin, and nitrofurantoin. Patient is status post a laparoscopic supracervical hysterectomy 8 weeks ago and sustained a bladder laceration that was repaired. She has had the catheter in ever since. Patient also had a seroma postoperatively and the incision was opened and the seroma drained. She had packed it for few weeks and this is now closed. Discharge Providers Date of admission: 07/04/18 10:59 Discharge Date: 07/07/18 Primary care physician: Lauren Villalpando DO Discharge provider: Mee Carney MD Summary Discharge Diagnosis: Left pyelonephritis Hospital Course: Patient was admitted for a left pyelonephritis on 07/04/2018. She had intractable nausea and vomiting at the time of admission. She was started on IV antibiotics, antiemetics, and Pyridium. Her vomiting resolved on hospital day # 1, her nausea resolved on hospital day # 3. She continues to have slight left-sided back pain but this is markedly improved. Status at Discharge Cognitive/behavioral status at discharge: oriented Functional status at discharge: independent ambulation Overall status at discharge: patient is progressing back to baseline Time Spent with Patient Less than 30 minutes Exam Vital Signs (past 8 hours): - 07/07/18 07:27 07/07/18 07:30 Temperature 98 F Pulse Rate 73 73 Respiratory Rate 12 16 Blood Pressure 148/67 H Pulse Oximetry 99 99 Oxygen Delivery Method Room Air Oxygen Flow Rate 0 Narrative Exam Narrative: Generally: Patient lying on right side, no acute distress Lungs: Clear to auscultation bilaterally Cardiovascular: Regular rate and rhythm Abdomen: Soft, flat, good bowel sounds. Incisions: Clean dry and intact Back: Slight left CVA tenderness Extremities: Negative Homans, no edema Objective Labs Result Diagrams: 07/04/18 11:30 07/04/18 11:30 Discharge Plan Discharge Plan Patient Disposition: Home Discharge comment: Call with fever, chills, worsening nausea, vomiting or back pain Push IV fluids Discharge Med Rec/Prescriptions Prescriptions: New ondansetron HCl [Zofran] 4 mg tablet 4 mg PO BID-TID PRN (Reason: nausea and vomiting) Qty: 14 RF: 0 oxycodone-acetaminophen [Percocet] 5-325 mg tablet 1 tab PO Q4-6H PRN (Reason: pain) Qty: 20 RF: 0 amoxicillin 500 mg capsule 500 mg PO TID Qty: 20 RF: 0 levofloxacin [Levaquin] 500 mg tablet 500 mg PO DAILY Qty: 7 RF: 0 phenazopyridine [Pyridium] 100 mg tablet 100 mg PO TID PRN (Reason: pain) Qty: 14 RF: 0 Continued beclomethasone dipropionate [Qvar RediHaler] 80 mcg/actuation HFA aerosol breath activated 1 puff INHALATION BID RF: 0 ferrous sulfate 325 mg (65 mg iron) tablet 325 mg PO BID Qty: 60 RF: 0 bupropion HCl [Wellbutrin XL] 300 mg tablet extended release 24 hr 300 mg PO QAM Qty: 30 RF: 5 levothyroxine 175 mcg tablet 175 mcg PO DAILY Qty: 90 RF: 4 albuterol sulfate [Ventolin HFA] 90 mcg/actuation HFA aerosol inhaler 2 puff INHALATION Q6H PRN (Reason: shortness of breath or wheezing) Qty: 18 RF: 1 sumatriptan succinate 100 mg tablet 100 mg PO .COMPLEX PRN (Reason: migraine headache) Qty: 30 RF: 0 acetaminophen [Tylenol] 325 mg Tablet 500 mg PO Q6-8H PRN (Reason: pain or headache) RF: 0 omeprazole 40 mg capsule,delayed release(DR/EC) 40 mg PO DAILY Qty: 30 RF: 5 paroxetine HCl 30 mg tablet 30 mg PO QPM Qty: 90 RF: 0 Discontinued etodolac 400 mg tablet 400 mg PO BID PRN (Reason: pain) RF: 0 nitrofurantoin macrocrystal [Macrodantin] 50 mg capsule 50 mg PO BEDTIME Qty: 14 RF: 1 Follow up/Referrals: Mee Carney MD [Family Provider] - (Call my office on Tuesday07/13/18 with an update, then we will decide when we need to see pt) Provider Discharge Instructions Diet: Regular Skin/Wound/Dressing Care Report to your healthcare provider any signs of infection, such as:: chills, fever and increased pain Visit Report/Discharge Packet Instructions: DI for Kidney Infection Discharge Data Primary Care Provider: Lauren Villalpando Attending Provider: Mee Carney Admit Date/Time: 07/04/18 10:59 Quality VTE Deep Vein Thrombosis/Pulmonary Embolism Present on Admission: No
--- NOTE | 2018-07-07 12:49 | PC.NURSE ---
AM NOTE - awakens easily, took in bites oatmeal this am, continues with some underyling nausea, minerva fluids, given iv abx and dose reglan this am, in and pt will dc home, declines tylenol, ra 98%, p78, after pt rested, iv dc'd, belongings gathered, including clothing, bag, cell phone and baler operator, wholesale diamond broker escorted pt to her own car.
== END 2018-07-07 12:30 | disposition home or self-care (01) | DRG 699 ==
PROVIDERS: Admitting Provider Obstetrics & Gynecology; Family Provider Obstetrics & Gynecology; PCP Family Medicine; Visit Provider Obstetrics & Gynecology
DX: T83.511A Infection and inflammatory reaction due to indwelling urethral catheter, initial encounter (principal); N12 Tubulo-interstitial nephritis, not specified as acute or chronic; B95.2 Enterococcus as the cause of diseases classified elsewhere; F41.9 Anxiety disorder, unspecified; F32.9 Major depressive disorder, single episode, unspecified; J45.909 Unspecified asthma, uncomplicated; D64.9 Anemia, unspecified
CPT/HCPCS: 36415; 80053; 85025; 94150; 94640; 94760; C9113; J0290; J1956; J2270; J2405; J2765; J7050

== ENCOUNTER → 2018-07-04 11:11 | Outpatient (CLI) | payer OTHER, SELFPAY ==
[2018-05-20 04:11] VITALS: BMI 35.0
== END ==
PROVIDERS: Family Provider Obstetrics & Gynecology; PCP Family Medicine; Visit Provider Obstetrics & Gynecology
DX: R10.9 Unspecified abdominal pain (principal)
CPT/HCPCS: 87077; 87086; 87186

== ENCOUNTER → 2018-10-18 09:47 | Outpatient (CLI) | payer OTHER, SELFPAY ==
[2018-07-10 14:44] VITALS: BMI 35.0
[2018-10-18 10:11] LABS: Appearance Urine UA SL CLOUDY; Bilirubin Urine UA 2+ (NEGATIVE); Color Urine UA YELLOW; Glucose Urine UA NEGATIVE (Negative); Ketones Urine UA NEGATIVE (NEGATIVE); Leukocyte Esterase Urine UA NEGATIVE (NEGATIVE); Nitrite Urine UA NEGATIVE (Negative); Occult Blood Urine UA NEGATIVE (Negative); Protein Urine UA NEGATIVE (Negative); Specific Gravity Urine UA 1.015 (1.000-1.035); Urobilinogen Urine UA 0.2 E.U./dL (0.2)
[2018-10-18 10:46] LABS: Add Manual Diff / Slide Review NO; Basophils Absolute Auto 100 /uL (0-100); Basophils Percent Auto 0.8 % (0-2); Eosinophils Absolute Auto 200 /uL (0-450); Eosinophils Percent Auto 2.1 % (2-4); Hematocrit 27.4 % (36-46); Hemoglobin 8.4 g/dL (12.0-16.0); Lymphocytes Absolute Auto 1800 /uL (1100-4500); Lymphocytes Percent Auto 19.9 % (25-40); Mean Corpuscular HGB Conc 30.8 % (30-36); Mean Corpuscular Hemoglobin 20.1 PG (26-34); Mean Corpuscular Volume 65.4 fL (80-100); Monocytes Absolute Auto 600 /uL (0-900); Monocytes Percent Auto 6.4 % (3-14); Neutrophils Absolute Auto 6500 /uL (1500-7000); Neutrophils Percent Auto 70.8 % (50-75); Platelet Count 403 X10^3/uL (150-400); Red Cell Distribution Width 18.6 % (11.6-14.8); White Blood Cell Count 9.2 X10^3/uL (4.5-11.0)
[2018-10-18 10:48] LABS: Alanine Aminotransferase 14 IU/L (9-52); Albumin 3.7 g/dL (3.5-5.0); Albumin Globulin Ratio 1.4 (1.0-2.8); Alkaline Phosphatase 89 U/L (38-126); Aspartate Aminotransferase 20 IU/L (14-36); BUN Creatinine Ratio 18.6 (6-22); Bilirubin Total 0.2 mg/dL (0.2-1.3); Blood Urea Nitrogen 13 mg/dL (7-17); Calcium 9.1 mg/dL (8.4-10.2); Carbon Dioxide 25 mmol/L (22-32); Chloride 105 mmol/L (98-107); Estimated Glomerular Filt Rate > 60.0 mL/min (>60); Globulin 2.6 g/dL (1.7-4.1); Glucose 92 mg/dL (70-100); HEMOLYSIS < 15 (0-50); Sodium 137 mmol/L (137-145); Total Protein 6.3 g/dL (6.3-8.2)
[2018-10-18 11:04] LABS: Free T3, Triiodothyronine Free 3.16 pg/mL (2.77-5.27); Free T4, Direct Thyroxine 1.45 ng/dL (0.78-2.19)
[2018-10-18 11:13] LABS: Microcytosis 1+
[2018-10-18 11:14] LABS: Anisocytosis 1+; Hypochromasia 1+
[2018-10-18 11:18] LABS: Thyroid Stimulating Hormone 1.18 uIU/mL (0.47-4.68)
== END ==
PROVIDERS: PCP Family Medicine; Visit Provider Family Medicine
DX: D64.9 Anemia, unspecified (principal); R79.89 Other specified abnormal findings of blood chemistry; R10.13 Epigastric pain; R10.9 Unspecified abdominal pain; R33.9 Retention of urine, unspecified; R53.83 Other fatigue
CPT/HCPCS: 36415; 80053; 81003; 84439; 84443; 84481; 85025

== ENCOUNTER 2019-04-25 18:04 | Emergency (ER) | payer OTHER, SELFPAY ==
[2018-07-10 14:44] VITALS: BMI 35.0
[2019-04-25 18:06] VITALS: BP 214/101; PULSE 105; RESP 22; TEMP 36.6; O2SAT 99
--- NOTE | 2019-04-25 18:28 | ED.NAVMDI ---
HPI - Nausea/Vomiting/Diarrhea General Chief complaint: Nausea/Vomiting/Diarrhea Stated complaint: n/v Time Seen by Provider: 04/25/19 18:05 Source: patient Mode of arrival: Ambulatory Limitations: no limitations History of Present Illness HPI Narrative: 48-year-old female 1 year status post supracervical hysterectomy secondary to fibroids. Here for vaginal bleeding that started approximately 1100 hours today. She states she was standing at the time. States she is bleeding as much as she does during a menstrual cycle. She is also having nausea and vomiting. No diarrhea. No abdominal pain. No urinary symptoms. Related Data Home Medications Medication Instructions Recorded Confirmed acetaminophen [Tylenol] 500 mg PO Q6-8H PRN 05/11/18 04/24/19 ranitidine HCl 150 mg tablet 150 mg PO DAILY 11/13/18 04/24/19 omeprazole 40 mg capsule,delayed 40 mg PO BID cap 03/07/19 04/24/19 release Previous Rx's Medication Instructions Recorded albuterol sulfate 90 mcg/actuation 2 puff INHALATION Q6H PRN #18 gram 02/01/18 aerosol inhaler ferrous sulfate 325 mg (65 mg 325 mg PO BID #60 tab 02/01/18 iron) tablet levothyroxine 175 mcg tablet 175 mcg PO DAILY #90 tab 02/01/18 ondansetron HCl [Zofran] 4 mg PO BID-TID PRN #14 tab 07/07/18 In and Out Catheters 14 Fr See Rx Instructions .ROUTE 10/26/18 .COMPLEX #30 each bupropion HCl 300 mg 24 hr tablet, See Rx Instructions .ROUTE 01/10/19 extended release .COMPLEX #30 tablet tramadol 50 mg tablet 50 mg PO BEDTIME #30 tab 02/01/19 paroxetine HCl 30 mg tablet See Rx Instructions .ROUTE 02/23/19 .COMPLEX #90 tablet sumatriptan succinate 100 mg tablet 100 mg PO .COMPLEX PRN #30 tab 02/28/19 beclomethasone dipropionate 80 1 inh INHALATION BID #10.6 gram 03/07/19 mcg/actuation HFA breath activated aerosol amoxicillin 875 mg-potassium 1 tab PO BID #20 tab 04/24/19 clavulanate 125 mg tablet prednisone 20 mg tablet 40 mg PO DAILY 5 Days #10 tab 04/24/19 Allergies Allergy/AdvReac Type Severity Reaction Status Date / Time Sulfa (Sulfonamide Allergy Severe ANAPHYLACTI Verified 04/24/19 10:22 Antibiotics) C [SULFA (SULFONAMIDE ANTIBIOTICS)] meperidine [MEPERIDINE] AdvReac Mild CRABBY Verified 04/24/19 10:22 Review of Systems Constitutional Constitutional: Denies fever(s) and Denies headache(s) ENT Ears, Nose, Mouth, and Throat: Denies vertigo and Denies headache(s) Cardiovascular Cardiovascular: Denies chest pain and Denies dyspnea Respiratory Respiratory: Denies dyspnea Gastrointestinal Gastrointestinal: Denies abdominal pain, Denies nausea and Denies vomiting Genitourinary Comments: Vaginal bleeding Musculoskeletal Musculoskeletal: Denies myalgias and Denies arthralgias Integumentary/Breasts Skin/Breast: Denies lesions and Denies rash Neurologic Neurologic: Denies vertigo and Denies headache(s) Hematologic/Lymphatic Hematologic/Lymphatic: Denies easy bleeding and Denies easy bruising Patient History Medical History Anemia (Acute) Anxiety (Chronic) Asthma (Chronic) Depression (Chronic) Fibroids (Chronic) GERD (gastroesophageal reflux disease) (Chronic) Hiatal hernia (Acute) High blood pressure (Acute) Hypothyroidism (Chronic) Menorrhagia (Acute) Seizures (Chronic) Sinusitis (Acute) Surgical History History of anterior cruciate ligament surgery (Resolved 03/2014) History of cholecystectomy (Resolved 06/2013) History of gastrointestinal surgery (Resolved 07/2007) History of Hafsa fundoplication (Acute) History of orthopedic surgery (Resolved 02/2003) History of sinus surgery (Resolved 04/2000) History of surgical removal of meniscus of knee (Resolved 01/2004) History of third molar tooth extraction (Resolved 1989) History of tonsillectomy (Resolved 05/1995) S/P partial hysterectomy (Acute) Status post laparoscopic cholecystectomy (Resolved 2013) Family History (Updated 03/01/18 @ 08:52 by Geeta Sullivan) Father Blood clot in vein Grandfather Heart attack Cancer Grandmother Diabetes mellitus Mother Diabetes mellitus Social History household members: spouse Smoking Status: Never smoker alcohol intake: current Smoking Status: Never smoker alcohol intake frequency: holidays/special occasions only Substance Use Type: marijuana Exam Initial Vital Signs Initial Vital Signs: Vital Signs Temperature 97.9 F 04/25/19 18:06 Pulse Rate 105 H 04/25/19 18:06 Respiratory Rate 22 04/25/19 18:06 Blood Pressure 214/101 H 04/25/19 18:06 Pulse Oximetry 99 04/25/19 18:06 Const General: cooperative, comfortable and well developed Resp Effort & Inspection: normal respiratory effort Auscultation: clear to auscultation bilaterally Cardio Rate: regular rate Rhythm: regular rhythm GI Inspection: non-distended Palpation: soft and No firm Other: Vaginal wall appears normal. Bleeding is coming from cervix. Back/Spine/Pelvis Back: No CVA tenderness Skin Lesions: no lesions Rashes: no rashes Neuro General: alert, awake and oriented x3 Cognition: normal cognition Speech: speech normal Extrem General: normal to inspection and capillary refill normal Psych Appearance: well kempt Course Orders Ordered: ED Orders 04/25/19 18:08 EKG-12 Lead Stat 04/25/19 18:21 Complete Blood Count AUTO DIFF Stat Comprehensive Metabolic Panel Stat Lactate (Lactic Acid) Stat Lipase Stat Partial Thromboplastin Time Stat Prothrombin Time INR Stat Discontinued Medications Sodium Chloride (Normal Saline 0.9%) 1,000 mls @ 1,000 mls/hr IV BOLUS ONE Stop: 04/25/19 19:04 Last Infusion: 04/25/19 20:02 Dose: 1,000 mls/hr Documented by: Admin: 04/25/19 18:54 Dose: 1,000 mls/hr Documented by: VIOLA Metoclopramide HCl (Reglan) 10 mg IV NOW ONE Stop: 04/25/19 20:05 Last Admin: 04/25/19 20:12 Dose: 10 mg Documented by: TEMO Ondansetron HCl (Zofran) 4 mg IV NOW ONE Stop: 04/25/19 18:41 Last Admin: 04/25/19 18:54 Dose: 4 mg Documented by: VIOLA Vital Signs Vital signs: Vital Signs - 8 hr 04/25/19 18:06 04/25/19 18:30 04/25/19 21:06 Temperature 97.9 F Pulse Rate 105 H 93 H 72 Respiratory Rate 22 25 H 17 Blood Pressure 214/101 H 159/69 H Blood Pressure [Left Arm] 171/78 H Pulse Oximetry 99 100 97 MDM - Nausea/Vomiting/Diarrhea Lab Data Attestation: I reviewed the patient's lab results. Result diagrams: 04/25/19 18:21 04/25/19 18:21 Labs: Lab Results 04/25/19 04/25/19 04/25/19 Range/Units 18:21 18:21 18:21 WBC 9.0 (4.5-11.0) X10^3/uL RBC 4.42 (4.0-5.2) X10^6/uL Hgb 10.1 L (12.0-16.0) g/dL Hct 31.4 L (36-46) % MCV 71.1 L (80-100) fL MCH 22.7 L (26-34) PG MCHC 32.0 (30-36) % RDW 19.3 H (11.6-14.8) % Plt Count 384 (150-400) X10^3/uL Neut % (Auto) 72.4 (50-75) % Lymph % (Auto) 18.1 L (25-40) % [place] % (Auto) 6.1 (3-14) % Eos % (Auto) 2.3 (2-4) % Baso % (Auto) 1.1 (0-2) % Neut # (Auto) 6500 (4679-4315) /uL Lymph # (Auto) 1600 (8142-3510) /uL [place] # (Auto) 500 (0-900) /uL Eos # (Auto) 200 (0-450) /uL Baso # (Auto) 100 (0-100) /uL PT 11.0 (10.1-12.7) SECONDS INR 1.0 (0.9-1.3) APTT 31 (26.4-36.2) SECONDS Sodium 138 (137-145) mmol/L Potassium 3.4 (3.4-5.1) mmol/L Chloride 103 (98-107) mmol/L Carbon Dioxide 26 (22-32) mmol/L BUN 16 (7-17) mg/dL Creatinine 0.80 (0.52-1.04) mg/dL Estimated GFR > 60.0 (>60) mL/min BUN/Creatinine Ratio 20.0 (6-22) Glucose 116 H (70-100) mg/dL Lactate (0.7-2.1) mmol/L Calcium 9.0 (8.4-10.2) mg/dL Total Bilirubin 0.2 (0.2-1.3) mg/dL AST 24 (14-36) IU/L ALT 17 (<35) IU/L Alkaline Phosphatase 109 (38-126) U/L Total Protein 7.5 (6.3-8.2) g/dL Albumin 4.3 (3.5-5.0) g/dL Globulin 3.2 (1.7-4.1) g/dL Albumin/Globulin Ratio 1.3 (1.0-2.8) Lipase 35 (23-300) U/L 04/25/19 Range/Units 18:21 WBC (4.5-11.0) X10^3/uL RBC (4.0-5.2) X10^6/uL Hgb (12.0-16.0) g/dL Hct (36-46) % MCV (80-100) fL MCH (26-34) PG MCHC (30-36) % RDW (11.6-14.8) % Plt Count (150-400) X10^3/uL Neut % (Auto) (50-75) % Lymph % (Auto) (25-40) % [place] % (Auto) (3-14) % Eos % (Auto) (2-4) % Baso % (Auto) (0-2) % Neut # (Auto) (2533-8927) /uL Lymph # (Auto) (4610-7546) /uL [place] # (Auto) (0-900) /uL Eos # (Auto) (0-450) /uL Baso # (Auto) (0-100) /uL PT (10.1-12.7) SECONDS INR (0.9-1.3) APTT (26.4-36.2) SECONDS Sodium (137-145) mmol/L Potassium (3.4-5.1) mmol/L Chloride (98-107) mmol/L Carbon Dioxide (22-32) mmol/L BUN (7-17) mg/dL Creatinine (0.52-1.04) mg/dL Estimated GFR (>60) mL/min BUN/Creatinine Ratio (6-22) Glucose (70-100) mg/dL Lactate 1.3 (0.7-2.1) mmol/L Calcium (8.4-10.2) mg/dL Total Bilirubin (0.2-1.3) mg/dL AST (14-36) IU/L ALT (<35) IU/L Alkaline Phosphatase (38-126) U/L Total Protein (6.3-8.2) g/dL Albumin (3.5-5.0) g/dL Globulin (1.7-4.1) g/dL Albumin/Globulin Ratio (1.0-2.8) Lipase (23-300) U/L MDM Narrative Medical decision making narrative: Labs are unremarkable. Is bleeding from the cervix. I did discuss the case with Dr. guillen who was on-call for communications lead who stated that upwards of 25% of supracervical hysterectomy scan have periodic bleeding. Patient is not anemic. Did tolerate a small amount of fluids although she stated that her nausea was not all that improved with medications. She stated she did not want any more medications and rather be discharged home. She has Zofran at home. Will hold on further workup for now. Should contact her primary doctor tomorrow for follow-up. She expressed understanding and agreement with plan. Discharge Plan Departure Patient Disposition: Home Clinical Impression: Abnormal vaginal bleeding Nausea and vomiting Qualifiers: Vomiting type: unspecified Vomiting Intractability: non-intractable Qualified Code(s): R11.2 - Nausea with vomiting, unspecified Discharge Date/Time: 04/25/19 20:43 Instructions: Nausea and Vomiting-Adult Activity Restrictions/Additional Instructions: Recommend that tomorrow you contact the [facility] to schedule follow-up appointment with your primary doctor and also the communications lead provider. Increase her fluid intake but taking small amounts of fluid over longer periods of time. Return to the emergency department for any new or worsening symptoms Prescriptions: No Action ferrous sulfate 325 mg (65 mg iron) tablet 325 mg PO BID Qty: 60 RF: 0 levothyroxine 175 mcg tablet 175 mcg PO DAILY Qty: 90 RF: 4 albuterol sulfate [Ventolin HFA] 90 mcg/actuation HFA aerosol inhaler 2 puff INHALATION Q6H PRN (Reason: shortness of breath or wheezing) Qty: 18 RF: 1 amoxicillin-pot clavulanate [Augmentin] 875-125 mg tablet 1 tab PO BID Qty: 20 RF: 0 prednisone 20 mg tablet 40 mg PO DAILY 5 Days Qty: 10 RF: 0 In and Out Catheters 14 Fr See Rx Instructions .ROUTE .COMPLEX Qty: 30 RF: 3 bupropion HCl 300 mg tablet extended release 24 hr See Rx Instructions .ROUTE .COMPLEX Qty: 30 RF: 4 tramadol 50 mg tablet 50 mg PO BEDTIME Qty: 30 RF: 0 paroxetine HCl 30 mg tablet See Rx Instructions .ROUTE .COMPLEX Qty: 90 RF: 0 sumatriptan succinate 100 mg tablet 100 mg PO .COMPLEX PRN (Reason: migraine headache) Qty: 30 RF: 0 omeprazole 40 mg capsule,delayed release(DR/EC) 40 mg PO BID RF: 0 Qvar RediHaler 80 mcg/actuation HFA aerosol breath activated 1 inh INHALATION BID Qty: 10.6 RF: 0 ranitidine HCl [Acid Sheriff'S Officer (ranitidine)] 150 mg tablet 150 mg PO DAILY RF: 0 acetaminophen [Tylenol] 325 mg Tablet 500 mg PO Q6-8H PRN (Reason: pain or headache) RF: 0 ondansetron HCl [Zofran] 4 mg tablet 4 mg PO BID-TID PRN (Reason: nausea and vomiting) Qty: 14 RF: 0 Referrals: Lauren Villalpando DO [Primary Care Provider] -
[2019-04-25 18:30] VITALS: BP 171/78; PULSE 93; RESP 25; O2SAT 100
[2019-04-25 18:30] LABS: Add Manual Diff / Slide Review NO; Basophils Absolute Auto 100 /uL (0-100); Basophils Percent Auto 1.1 % (0-2); Eosinophils Absolute Auto 200 /uL (0-450); Eosinophils Percent Auto 2.3 % (2-4); Hematocrit 31.4 % (36-46); Hemoglobin 10.1 g/dL (12.0-16.0); Lymphocytes Absolute Auto 1600 /uL (1100-4500); Lymphocytes Percent Auto 18.1 % (25-40); Mean Corpuscular Hemoglobin 22.7 PG (26-34); Mean Corpuscular Volume 71.1 fL (80-100); Monocytes Absolute Auto 500 /uL (0-900); Monocytes Percent Auto 6.1 % (3-14); Neutrophils Absolute Auto 6500 /uL (1500-7000); Neutrophils Percent Auto 72.4 % (50-75); Platelet Count 384 X10^3/uL (150-400); Red Blood Cell Count 4.42 X10^6/uL (4.0-5.2); Red Cell Distribution Width 19.3 % (11.6-14.8)
[2019-04-25 18:41] LABS: PTT Partial Thromboplastin Tim 31 SECONDS (26.4-36.2)
[2019-04-25 18:42] LABS: Lactate (Lactic Acid) 1.3 mmol/L (0.7-2.1)
[2019-04-25 18:43] LABS: Alanine Aminotransferase 17 IU/L (<35); Albumin 4.3 g/dL (3.5-5.0); Albumin Globulin Ratio 1.3 (1.0-2.8); Alkaline Phosphatase 109 U/L (38-126); Aspartate Aminotransferase 24 IU/L (14-36); Bilirubin Total 0.2 mg/dL (0.2-1.3); Blood Urea Nitrogen 16 mg/dL (7-17); Carbon Dioxide 26 mmol/L (22-32); Chloride 103 mmol/L (98-107); Estimated Glomerular Filt Rate > 60.0 mL/min (>60); Globulin 3.2 g/dL (1.7-4.1); Glucose 116 mg/dL (70-100); HEMOLYSIS < 15 (0-50); Lipase 35 U/L (23-300); Potassium 3.4 mmol/L (3.4-5.1); Sodium 138 mmol/L (137-145); Total Protein 7.5 g/dL (6.3-8.2)
[2019-04-25] MEDS: ONDANSETRON 4 MG/2 ML INJ IV (18:54)
[2019-04-25] MEDS: SODIUM CHLORIDE 0.9% 1,000 ML 1000 ML IV (18:54)
[2019-04-25] MEDS: METOCLOPRAMIDE 10 MG/2 ML INJ IV (20:12)
[2019-04-25 21:06] VITALS: BP 159/69; PULSE 72; RESP 17; O2SAT 97
== END 2019-04-25 20:43 | disposition home or self-care (01) ==
PROVIDERS: Emergency Provider Emergency Medicine; PCP Family Medicine
DX: N93.9 Abnormal uterine and vaginal bleeding, unspecified (principal); R11.2 Nausea with vomiting, unspecified
CPT/HCPCS: 36415; 80053; 83605; 83690; 85025; 85610; 85730; 93005; 96361; 96374; 96375; 99284; J2405; J2765

== ENCOUNTER → 2019-06-06 13:52 | Outpatient (CLI) | payer OTHER, SELFPAY ==
[2019-05-02 14:53] VITALS: BMI 35.0
[2019-06-06 14:33] LABS: Influenza A - CEPHEID Flu A NEGATIVE (NEGATIVE); Influenza B - CEPHEID Flu B NEGATIVE (NEGATIVE)
== END ==
PROVIDERS: PCP Family Medicine; Visit Provider Family Medicine
DX: R50.9 Fever, unspecified (principal)
CPT/HCPCS: 87502

== ENCOUNTER → 2019-07-07 14:09 | Outpatient (CLI) | payer OTHER, SELFPAY ==
[2019-05-02 14:53] VITALS: BMI 35.0
[2019-07-09 11:07] LABS: COVID19 Sendout Not Detected (Not Detected)
== END ==
PROVIDERS: PCP Family Medicine; Visit Provider Physician Assistant
DX: R05 Cough (principal)
CPT/HCPCS: 87635

== ENCOUNTER → 2019-11-06 09:34 | Outpatient (CLI) | payer OTHER, SELFPAY ==
[2019-05-02 14:53] VITALS: BMI 35.0
--- NOTE | 2019-11-06 09:39 | DI.RAD.S_ITS ---
PROCEDURE: XR ANKLE LT MIN 3V INDICATIONS: ankle pain TECHNIQUE: 3 views of the ankle were acquired. COMPARISON: None. FINDINGS: Bones: No fracture. Anatomic alignment. Postsurgical changes related to intramedullary vernon and screw fixation. The hardware appears intact where visualized. No evidence of hardware loosening or failure. Prominent plantar and posterior calcaneal spurs. Diffuse hindfoot and midfoot degenerative sclerosis and spurring. IMPRESSION: Postsurgical and degenerative changes as above. Dictated by: Eliezer Yip M.D. on 11/06/2019 at 14:46 Approved by: Eliezer Yip M.D. on 11/06/2019 at 14:48
== END ==
PROVIDERS: PCP Family Medicine; Referring Provider Family Medicine; Visit Provider Family Medicine
DX: M25.572 Pain in left ankle and joints of left foot (principal); M25.472 Effusion, left ankle; M77.32 Calcaneal spur, left foot
CPT/HCPCS: 73610

== ENCOUNTER → 2019-11-15 10:20 | Outpatient (CLI) | payer BC, SELFPAY ==
[2019-05-02 14:53] VITALS: BMI 35.0
[2019-11-15 11:48] LABS: Add Manual Diff / Slide Review NO; Basophils Absolute Auto 0 /uL (0-100); Basophils Percent Auto 0.6 % (0-2); Eosinophils Absolute Auto 200 /uL (0-450); Eosinophils Percent Auto 2.3 % (2-4); Hematocrit 33.8 % (36-46); Hemoglobin 10.8 g/dL (12.0-16.0); Lymphocytes Absolute Auto 1200 /uL (1100-4500); Lymphocytes Percent Auto 14.6 % (25-40); Mean Corpuscular Hemoglobin 24.2 PG (26-34); Mean Corpuscular Volume 75.6 fL (80-100); Monocytes Absolute Auto 400 /uL (0-900); Monocytes Percent Auto 5.1 % (3-14); Neutrophils Absolute Auto 6300 /uL (1500-7000); Neutrophils Percent Auto 77.4 % (50-75); Platelet Count 378 X10^3/uL (150-400); Red Blood Cell Count 4.46 X10^6/uL (4.0-5.2); Red Cell Distribution Width 16.9 % (11.6-14.8); White Blood Cell Count 8.2 X10^3/uL (4.5-11.0)
[2019-11-15 12:16] LABS: HEMOLYSIS < 15 (0-50); Iron 82 ug/dL (37-170)
[2019-11-15 12:21] LABS: Alanine Aminotransferase 18 IU/L (<35); Albumin 3.9 g/dL (3.5-5.0); Albumin Globulin Ratio 1.5 (1.0-2.8); Alkaline Phosphatase 90 U/L (38-126); Aspartate Aminotransferase 21 IU/L (14-36); BUN Creatinine Ratio 15.4 (6-22); Bilirubin Total 0.7 mg/dL (0.2-1.3); Blood Urea Nitrogen 14 mg/dL (7-17); Calcium 9.2 mg/dL (8.4-10.2); Carbon Dioxide 23 mmol/L (22-32); Chloride 103 mmol/L (98-107); Cholesterol 163 mg/dL (140-199); Estimated Glomerular Filt Rate > 60.0 mL/min (>60); Globulin 2.6 g/dL (1.7-4.1); Glucose 83 mg/dL (70-100); HDL Cholesterol 76 mg/dL (40-60); HEMOLYSIS < 15 (0-50); LDL Cholesterol Calculated 70 mg/dL (<100); Potassium 4.6 mmol/L (3.4-5.1); Sodium 136 mmol/L (137-145); Total Protein 6.5 g/dL (6.3-8.2); Triglycerides 84 mg/dL (35-150)
[2019-11-15 12:29] LABS: Percent Iron Saturation 22 % (15-50); Total Iron Binding Capacity 381 ug/dL (265-497); Transferrin 294 mg/dL (206-381)
[2019-11-15 12:34] LABS: Vitamin D 25 Hydroxy (D3) 13.7 ng/mL (30.0-100.0)
[2019-11-15 12:39] LABS: Free T3, Triiodothyronine Free 3.34 pg/mL (2.77-5.27)
[2019-11-15 12:52] LABS: Thyroid Stimulating Hormone 0.015 uIU/mL (0.47-4.68)
== END ==
LOC: LAB 10:23
PROVIDERS: PCP Family Medicine; Referring Provider Family Medicine; Visit Provider Family Medicine
DX: D64.9 Anemia, unspecified (principal); E03.9 Hypothyroidism, unspecified; F32.9 Major depressive disorder, single episode, unspecified; F41.9 Anxiety disorder, unspecified; I10 Essential (primary) hypertension
CPT/HCPCS: 36415; 80053; 80061; 82306; 83540; 83550; 84439; 84443; 84481; 85025

== ENCOUNTER → 2019-12-26 09:53 | Outpatient (CLI) | payer BC, SELFPAY ==
[2019-05-02 14:53] VITALS: BMI 35.0
[2019-12-26 13:43] LABS: Appearance Urine UA CLEAR; Bilirubin Urine UA NEGATIVE (NEGATIVE); Color Urine UA YELLOW; Glucose Urine UA NEGATIVE (Negative); Ketones Urine UA NEGATIVE (NEGATIVE); Leukocyte Esterase Urine UA NEGATIVE (NEGATIVE); Nitrite Urine UA NEGATIVE (Negative); Occult Blood Urine UA TRACE-LYSED (Negative); Protein Urine UA NEGATIVE (Negative); Specific Gravity Urine UA >=1.030 (1.000-1.035); Urobilinogen Urine UA 0.2 E.U./dL (0.2); pH Urine UA 5.5 (4.5-8.0)
[2019-12-26 13:58] LABS: Bacteria Urine Few (2-10); Culture Indicated Urine Cult Not Indicated; Mucus Urine 1+ (Negative); RBC Urine 0-1/HPF (0-5/HPF); Squamous Epithelial Cell Urine 1-5 /HPF (0-5/HPF); WBC Urine 1-5/HPF (0-5/HPF)
== END ==
PROVIDERS: PCP Family Medicine; Visit Provider Obstetrics & Gynecology
DX: Z91.89 Other specified personal risk factors, not elsewhere classified (principal)
CPT/HCPCS: 81001

== ENCOUNTER → 2020-01-24 12:49 | Outpatient (CLI) | payer BC, SELFPAY ==
[2019-05-02 14:53] VITALS: BMI 35.0
== END ==
PROVIDERS: PCP Family Medicine; Visit Provider Obstetrics & Gynecology
DX: R39.9 Unspecified symptoms and signs involving the genitourinary system (principal)
CPT/HCPCS: 87086

== ENCOUNTER → 2020-02-03 16:18 | Outpatient (CLI) | payer BC, SELFPAY ==
[2019-05-02 14:53] VITALS: BMI 35.0
== END ==
PROVIDERS: PCP Family Medicine; Visit Provider Physician Assistant
DX: R30.0 Dysuria (principal)
CPT/HCPCS: 87077; 87086; 87186

== ENCOUNTER → 2020-02-13 10:03 | Outpatient (CLI) | payer BC, SELFPAY ==
[2019-05-02 14:53] VITALS: BMI 35.0
[2020-02-13 10:33] LABS: Appearance Urine UA CLOUDY; Bilirubin Urine UA NEGATIVE (NEGATIVE); Color Urine UA YELLOW; Glucose Urine UA NEGATIVE (Negative); Ketones Urine UA NEGATIVE (NEGATIVE); Leukocyte Esterase Urine UA 1+ (NEGATIVE); Nitrite Urine UA NEGATIVE (Negative); Occult Blood Urine UA 3+ (Negative); Protein Urine UA 2+ (Negative); Urobilinogen Urine UA 0.2 E.U./dL (0.2)
[2020-02-13 10:37] LABS: pH Urine UA 6.5 (4.5-8.0)
[2020-02-13 10:46] LABS: Bacteria Urine Many (>30); Culture Indicated Urine Specimen Cultured; RBC Urine 10-30/HPF (0-5/HPF); WBC Urine 5-10/HPF (0-5/HPF)
== END ==
LOC: LAB 10:04
PROVIDERS: PCP Family Medicine; Referring Provider Obstetrics & Gynecology; Visit Provider Obstetrics & Gynecology
DX: N30.01 Acute cystitis with hematuria (principal)
CPT/HCPCS: 81001; 87077; 87086

== ENCOUNTER → 2020-05-13 13:39 | Outpatient (CLI) | payer BC, SELFPAY ==
[2019-05-02 14:53] VITALS: BMI 35.0
--- NOTE | 2020-05-13 13:42 | DI.RAD.S_ITS ---
PROCEDURE: XR KNEE RT 3V INDICATIONS: right knee pain TECHNIQUE: 3 views of the knee were acquired. COMPARISON: None. FINDINGS: Bones: No fractures or dislocations. No suspicious bony lesions. Soft tissues: No joint effusion. No suspicious soft tissue calcifications. IMPRESSION: No acute fracture. No osseous lesion. If symptoms and/or clinical suspicion for pathology persist, further assessment with repeat, or advanced imaging (e.g., CT, MRI, or bone scan) may be helpful for further assessment. Dictated by: Chris Godfrey M.D. on 05/13/2020 at 16:46 Approved by: Chris Godfrey M.D. on 05/13/2020 at 16:46
== END ==
PROVIDERS: PCP Family Medicine; Referring Provider Nurse Practitioner Family; Visit Provider Nurse Practitioner Family
DX: M25.561 Pain in right knee (principal); G89.29 Other chronic pain
CPT/HCPCS: 73562

== ENCOUNTER → 2020-10-30 09:56 | Outpatient (CLI) | payer BC, SELFPAY ==
[2019-05-02 14:53] VITALS: BMI 35.0
[2020-10-30 10:27] LABS: Add Manual Diff / Slide Review NO; Basophils Absolute Auto 100 /uL (0-100); Basophils Percent Auto 1.1 % (0-2); Eosinophils Absolute Auto 100 /uL (0-450); Eosinophils Percent Auto 1.9 % (2-4); Hematocrit 38.8 % (36-46); Hemoglobin 12.7 g/dL (12.0-16.0); Lymphocytes Absolute Auto 1400 /uL (1100-4500); Lymphocytes Percent Auto 20.7 % (25-40); Mean Corpuscular HGB Conc 32.7 % (30-36); Mean Corpuscular Hemoglobin 27.1 PG (26-34); Mean Corpuscular Volume 82.9 fL (80-100); Monocytes Absolute Auto 400 /uL (0-900); Monocytes Percent Auto 5.6 % (3-14); Neutrophils Absolute Auto 4900 /uL (1500-7000); Neutrophils Percent Auto 70.7 % (50-75); Platelet Count 386 X10^3/uL (150-400); Red Blood Cell Count 4.68 X10^6/uL (4.0-5.2); Red Cell Distribution Width 13.5 % (11.6-14.8); White Blood Cell Count 6.9 X10^3/uL (4.5-11.0)
[2020-10-30 10:54] LABS: HEMOLYSIS < 15 (0-50); Iron 107 ug/dL (37-170)
[2020-10-30 10:57] LABS: Alanine Aminotransferase 19 IU/L (<35); Albumin Globulin Ratio 1.4 (1.0-2.8); Alkaline Phosphatase 93 U/L (38-126); Aspartate Aminotransferase 23 IU/L (14-36); BUN Creatinine Ratio 20.2 (6-22); Bilirubin Total 0.7 mg/dL (0.2-1.3); Blood Urea Nitrogen 17 mg/dL (7-17); Calcium 9.4 mg/dL (8.4-10.2); Carbon Dioxide 26 mmol/L (22-32); Chloride 106 mmol/L (98-107); Cholesterol 176 mg/dL (140-199); Estimated Glomerular Filt Rate > 60.0 mL/min (>60); Globulin 2.8 g/dL (1.7-4.1); Glucose 96 mg/dL (70-100); HDL Cholesterol 68 mg/dL (40-60); HEMOLYSIS < 15 (0-50); LDL Cholesterol Calculated 95 mg/dL (<100); Sodium 139 mmol/L (137-145); Total Protein 6.8 g/dL (6.3-8.2); Triglycerides 63 mg/dL (35-150)
[2020-10-30 11:05] LABS: Percent Iron Saturation 33 % (15-50); Total Iron Binding Capacity 326 ug/dL (265-497); Transferrin 286 mg/dL (206-381)
[2020-10-30 11:12] LABS: Free T3, Triiodothyronine Free 4.78 pg/mL (2.77-5.27); Free T4, Direct Thyroxine 2.33 ng/dL (0.78-2.19); Vitamin D 25 Hydroxy (D3) 24.8 ng/mL (30.0-100.0)
[2020-10-30 11:27] LABS: Thyroid Stimulating Hormone < 0.015 uIU/mL (0.47-4.68)
== END ==
LOC: LAB 09:57
PROVIDERS: PCP Family Medicine; Referring Provider Family Medicine; Visit Provider Family Medicine
DX: E03.9 Hypothyroidism, unspecified (principal); E55.9 Vitamin D deficiency, unspecified; I10 Essential (primary) hypertension
CPT/HCPCS: 36415; 80053; 80061; 82306; 83540; 83550; 84439; 84443; 84481; 85025

== ENCOUNTER → 2021-01-08 09:58 | Outpatient (CLI) | payer BC, SELFPAY ==
[2019-05-02 14:53] VITALS: BMI 35.0
== END ==
PROVIDERS: PCP Family Medicine; Visit Provider Physician Assistant
DX: R30.9 Painful micturition, unspecified (principal)
CPT/HCPCS: 87077; 87086

== ENCOUNTER → 2021-01-15 15:49 | Outpatient (CLI) | payer BC, SELFPAY ==
[2019-05-02 14:53] VITALS: BMI 35.0
--- NOTE | 2021-01-15 | DI.MG.S_ITS ---
BILATERAL DIGITAL SCREENING MAMMOGRAM 3D/2D WITH CAD: 01/15/2021 CLINICAL: Routine screening. Family history of breast cancer. Comparison is made to exam dated: 01/10/2014 [facility]. The tissue of both breasts is heterogeneously dense. This may lower the sensitivity of mammography. Current study was also evaluated with a Computer Aided Detection (CAD) system. No significant masses, calcifications, or other findings are seen in either breast. There has been no significant interval change. IMPRESSION: NEGATIVE There is no mammographic evidence of malignancy. A 1 year screening mammogram is recommended. This exam was interpreted at Station ID: [id number]. NOTE: For mammograms, a report in lay terms will be sent to the patient. Approximately 15% of breast malignancies will not be visualized mammographically. In the management of a palpable breast mass, a negative mammogram must not discourage biopsy of a clinically suspicious lesion. Electronically Signed By: Maldonado siegel/arsalan:01/15/2021 17:32:40 letter sent: Normal Exam ACR BI-RADS Category 1: Negative [id number]
== END ==
PROVIDERS: PCP Family Medicine; Referring Provider Family Medicine; Visit Provider Family Medicine
DX: Z12.31 Encounter for screening mammogram for malignant neoplasm of breast (principal); Z80.3 Family history of malignant neoplasm of breast
CPT/HCPCS: 77063; 77067

== ENCOUNTER → 2021-02-10 13:08 | Outpatient (CLI) | payer BC, SELFPAY ==
[2019-05-02 14:53] VITALS: BMI 35.0
[2021-02-10 13:57] LABS: COVID19 -Nasal RAPID POSITIVE (Negative)
== END ==
PROVIDERS: PCP Family Medicine; Referring Provider Physician Assistant; Visit Provider Physician Assistant
DX: U07.1 COVID-19 (principal); Z20.822 Contact with and (suspected) exposure to COVID-19; R09.81 Nasal congestion
CPT/HCPCS: 87635

== ENCOUNTER → 2021-11-12 11:02 | Outpatient (CLI) | payer BC, OTHER, MEDICAID, SELFPAY ==
[2019-05-02 14:53] VITALS: BMI 35.0
[2021-11-12 12:16] LABS: Add Manual Diff / Slide Review NO; Basophils Absolute Auto 100 /uL (0-100); Eosinophils Absolute Auto 100 /uL (0-450); Eosinophils Percent Auto 0.9 % (2-4); Hematocrit 37.2 % (36-46); Hemoglobin 12.5 g/dL (12.0-16.0); Lymphocytes Absolute Auto 1500 /uL (1100-4500); Lymphocytes Percent Auto 18.1 % (25-40); Mean Corpuscular HGB Conc 33.6 % (30-36); Mean Corpuscular Hemoglobin 27.2 PG (26-34); Monocytes Absolute Auto 300 /uL (0-900); Monocytes Percent Auto 3.8 % (3-14); Neutrophils Absolute Auto 6300 /uL (1500-7000); Neutrophils Percent Auto 76.2 % (50-75); Platelet Count 332 X10^3/uL (150-400); Red Blood Cell Count 4.59 X10^6/uL (4.0-5.2); Red Cell Distribution Width 13.8 % (11.6-14.8); White Blood Cell Count 8.2 X10^3/uL (4.5-11.0)
[2021-11-12 12:55] LABS: Alanine Aminotransferase 19 IU/L (<35); Albumin Globulin Ratio 1.5 (1.0-2.8); Alkaline Phosphatase 96 U/L (38-126); Aspartate Aminotransferase 22 IU/L (14-36); BUN Creatinine Ratio 11.7 (6-22); Bilirubin Total 0.5 mg/dL (0.2-1.3); Blood Urea Nitrogen 11 mg/dL (7-17); Calcium 8.8 mg/dL (8.4-10.2); Carbon Dioxide 25 mmol/L (22-32); Chloride 103 mmol/L (98-107); Cholesterol 181 mg/dL (140-199); Estimated Glomerular Filt Rate > 60 mL/min (>60); Globulin 2.6 g/dL (1.7-4.1); Glucose 94 mg/dL (70-100); HDL Cholesterol 68 mg/dL (40-60); HEMOLYSIS < 15 (0-50); LDL Cholesterol Calculated 97 mg/dL (<100); Potassium 4.4 mmol/L (3.4-5.1); Sodium 137 mmol/L (137-145); Total Protein 6.6 g/dL (6.3-8.2); Triglycerides 79 mg/dL (35-150)
[2021-11-12 13:14] LABS: Free T3, Triiodothyronine Free 3.29 pg/mL (2.77-5.27)
[2021-11-12 13:27] LABS: Thyroid Stimulating Hormone 1.88 uIU/mL (0.47-4.68)
== END ==
PROVIDERS: PCP Family Medicine; Referring Provider Family Medicine; Visit Provider Family Medicine
DX: D50.0 Iron deficiency anemia secondary to blood loss (chronic) (principal); E03.9 Hypothyroidism, unspecified; F32.9 Major depressive disorder, single episode, unspecified; F41.9 Anxiety disorder, unspecified; I10 Essential (primary) hypertension
CPT/HCPCS: 36415; 80053; 80061; 84439; 84443; 84481; 85025

== ENCOUNTER → 2021-11-26 16:18 | Outpatient (CLI) | payer BC, OTHER, MEDICAID, SELFPAY ==
[2019-05-02 14:53] VITALS: BMI 35.0
--- NOTE | 2021-11-26 16:19 | DI.US.S_ITS ---
PROCEDURE: US PELVIC COMPLETE INDICATIONS: vaginal bleeding after hysterectomy TECHNIQUE: Real-time scanning was performed of the pelvic organs, with image documentation. Additional endovaginal scanning was necessary due to incomplete visualization of the adnexal and endometrial structures by transabdominal scanning. COMPARISON: [facility], US, US PELVIC COMPLETE, 07/14/2018, 16:57. FINDINGS: Uterus: Surgically absent Ovaries: The right ovary measures 3.9 x 1.9 x 2.2 cm, with a calculated ovarian volume of 8.1 cc. The left ovary measures 3.7 x 1.7 x 3.0 cm, with a calculated ovarian volume of 9.6 cc. The bilateral complex ovarian cysts noted. On the right, there is a 2.5 x 1.5 cm cyst, on the left, there is a 2.6 x 1.2 x 2.6 cm cyst. Other: Small amount of free fluid in the pelvis IMPRESSION: Small bilateral complex ovarian cysts measure up to 2.6 cm. Consider 6-12 week follow-up Approved by: Axel Sage M.D. on 11/27/2021 at 12:01
== END ==
PROVIDERS: PCP Family Medicine; Referring Provider Obstetrics & Gynecology; Visit Provider Obstetrics & Gynecology
DX: N93.9 Abnormal uterine and vaginal bleeding, unspecified (principal); N83.202 Unspecified ovarian cyst, left side; N83.201 Unspecified ovarian cyst, right side
CPT/HCPCS: 76830; 76856

== ENCOUNTER → 2021-12-03 08:23 | Outpatient (CLI) | payer BC, OTHER, MEDICAID, SELFPAY ==
[2019-05-02 14:53] VITALS: BMI 35.0
[2021-12-03 11:55] LABS: Cancer Antigen 125 8.7 U/mL (0-35)
== END ==
PROVIDERS: PCP Family Medicine; Referring Provider Obstetrics & Gynecology; Visit Provider Obstetrics & Gynecology
DX: N83.201 Unspecified ovarian cyst, right side (principal); N83.202 Unspecified ovarian cyst, left side
CPT/HCPCS: 36415; 86304

== ENCOUNTER → 2022-02-25 11:30 | Outpatient (CLI) | payer BC, OTHER, MEDICAID, SELFPAY ==
[2019-05-02 14:53] VITALS: BMI 35.0
--- NOTE | 2022-02-25 11:33 | DI.MG.S_ITS ---
BILATERAL DIGITAL SCREENING MAMMOGRAM 3D/2D WITH CAD: 02/25/2022 CLINICAL: Routine screening. Family history of breast cancer. Comparison is made to exams dated: 01/15/2021 mammogram and 01/10/2014 mammogram - [facility]. Both breasts are heterogeneously dense, which may obscure small masses (category c / 51-75% glandular tissue). Current study was also evaluated with a Computer Aided Detection (CAD) system. No significant masses, calcifications, or other findings are seen in either breast. There has been no significant interval change. IMPRESSION: NEGATIVE There is no mammographic evidence of malignancy. A 1 year screening mammogram is recommended. Based on the Tyrer Cuzick model (a risk assessment model) the patient's lifetime risk is 8.2% and her 10 year risk is 1.8%. According to the ACR, ACS, and NCCN guidelines, an annual breast MRI exam along with mammogram is recommended if the patient's lifetime risk is 20% or greater. This exam was interpreted at Station ID: [id number]. NOTE: For mammograms, a report in lay terms will be sent to the patient. Approximately 15% of breast malignancies will not be visualized mammographically. In the management of a palpable breast mass, a negative mammogram must not discourage biopsy of a clinically suspicious lesion. Electronically Signed By: Maldonado siegel/arsalan:02/25/2022 12:54:43 letter sent: Normal Exam ACR BI-RADS Category 1: Negative 3341F
== END ==
PROVIDERS: PCP Family Medicine; Referring Provider Family Medicine; Visit Provider Family Medicine
DX: Z12.31 Encounter for screening mammogram for malignant neoplasm of breast (principal); Z80.3 Family history of malignant neoplasm of breast
CPT/HCPCS: 77063; 77067

== ENCOUNTER → 2022-03-08 09:36 | Outpatient (CLI) | payer BC, OTHER, MEDICAID, SELFPAY ==
[2019-05-02 14:53] VITALS: BMI 35.0
[2022-03-08 10:11] LABS: COVID19 -Nasal RAPID Negative (Negative)
== END ==
PROVIDERS: PCP Family Medicine; Visit Provider Obstetrics & Gynecology
DX: Z01.812 Encounter for preprocedural laboratory examination (principal); Z20.822 Contact with and (suspected) exposure to COVID-19
CPT/HCPCS: 87635

== ENCOUNTER 2022-03-08 09:45 | Day surgery (SDC) | payer BC, OTHER, MEDICAID, SELFPAY ==
[2019-05-02 14:53] VITALS: BMI 35.0
[2022-03-03 08:31] VITALS: BMI 34.6
[2022-03-08] VITALS (11 sets, daily range): BP systolic 92–167; BP diastolic 51–88; PULSE 57–79; RESP 12–19; TEMP 36–36.6; O2SAT 97–100; BMI 34.9
--- NOTE | 2022-03-08 | PATH_ITS ---
Note [facility] Accession Number: [id number] TESTS RESULT FLAG UNITS REF RANGE LAB Clinician Provided Cytology Information No. of containers..01 Other (Miscellaneous) Source: RIGHT OVARY Clinician ICD10: N83.209 N93.9 DIAGNOSIS: RIGHT OVARY NEGATIVE FOR MALIGNANT CELLS. THIS INTERPRETATION INCLUDES EVALUATION OF A CELL BLOCK. Pathologist ICD10: N83.201 Signed out by: Valentina Barr MD, Pathologist NPI- [id number] Performed by: [place], Cylinder Inspector And Tester ([facility]) Gross description: 01 3 CC, YELLOW, CLOUDY RECIEVED IN ORANGE CAP CONTAINER /RZA 03/09/2022 0745 Local FLAG LEGEND: L-Low Normal,H-High Normal,LL-Alert Low,HH-Alert High <-Panic Low,>-Panic High,A-Abnormal,AA-Critical Abnormal Performed at: 01 =Z [facility] [address], [place] [address] Luther Rojas MD, Performed at: 01 [facility] [address], [place], [place] [id number] MD Luther Rojas MD Phone: [phone]
[2022-03-08] MEDS: LACTATED RINGERS 1,000 ML 100 ML IV (10:57)
--- NOTE | 2022-03-08 11:32 | P.HP_ITS ---
History of Present Illness History of Present Illness Date Patient Seen: 03/08/22 Time Patient Seen: 11:32 Chief complaint: Laparoscopic Salpingectomy Narrative: Patient is a 51-year-old 1 para 1 who presents for laparoscopic removal of bilateral ovarian cysts and for cautery of the endocervical canal. This is being done due to bilateral ovarian cysts and bleeding after laparoscopic supracervical hysterectomy. Patient History Medical History (Updated 02/16/22 @ 12:23 by Alannah Murillo RN) Abnormal vaginal bleeding Anemia Anesthesia complication Anxiety Anxiety and depression Asthma Chronic pain of left knee Chronic pain of right knee Community acquired pneumonia COVID-19 virus infection (02/10/21) Depression Excessive cerumen in both ear canals Fibroids GERD (gastroesophageal reflux disease) Hiatal hernia High blood pressure Hypothyroidism Laceration of bladder Menorrhagia Pain and swelling of left ankle Seizures Sinusitis Somatic dysfunction of lower extremity Stress fracture, left foot, sequela Vitamin D deficiency Surgical History History of anterior cruciate ligament surgery (03/2014) History of cholecystectomy (06/2013) History of gastrointestinal surgery (07/2007) History of Hafsa fundoplication History of orthopedic surgery (02/2003) History of sinus surgery (04/2000) History of surgical removal of meniscus of knee (01/2004) History of third molar tooth extraction (1989) History of tonsillectomy (05/1995) S/P partial hysterectomy Status post laparoscopic cholecystectomy (2013) Family & Social History Family History Father Blood clot in vein Grandfather Heart attack Cancer Grandmother Diabetes mellitus Mother Diabetes mellitus Cancer Social History: household members spouse Tobacco & Substance use: Smoking Status Never smoker alcohol intake current alcohol intake frequency holiday/special occasion Substance Use Type marijuana Meds Home Medications and Allergies Home Medications Medication Instructions Recorded Confirmed Type ferrous sulfate 325 mg (65 mg 325 mg PO BID #60 tabs 02/01/18 03/08/22 Rx iron) tablet acetaminophen 325 mg tablet 500 mg PO Q6-8H PRN pain or 05/11/18 02/16/22 History (Tylenol) headache ondansetron HCl 4 mg tablet 4 mg PO BID-TID PRN nausea and 07/07/18 02/16/22 Rx (Zofran) vomiting #14 tabs Knee brace #1 ea 11/29/19 01/28/22 Rx lidocaine 5 % topical patch 1 patch topical DAILY PRN pain #15 05/13/20 02/16/22 Rx ea clonazepam 1 mg tablet 1 mg PO TID PRN anxiety #20 tabs 11/20/20 02/16/22 Rx sumatriptan succinate 100 mg tablet 100 mg PO .COMPLEX PRN migraine 12/20/20 03/08/22 Rx headache #30 tabs levothyroxine 175 mcg tablet 175 mcg PO DAILY #90 tabs 03/05/21 03/08/22 Rx handi cap placard #1 ea 05/18/21 01/28/22 Rx diphenoxylate-atropine 2.5 1 tab PO Q6H PRN diarrhea #20 tabs 08/07/21 02/16/22 Rx mg-0.025 mg tablet (Lomotil) bupropion HCl 150 mg 24 hr tablet, See Rx Instructions .Route 10/12/21 03/08/22 Rx extended release .COMPLEX #90 tabs bupropion HCl 300 mg 24 hr tablet, See Rx Instructions .Route 10/12/21 03/08/22 Rx extended release .COMPLEX #90 tabs albuterol sulfate 90 mcg/actuation 2 puff inhalation Q6H PRN 10/13/21 03/08/22 Rx aerosol inhaler (Ventolin HFA) shortness of breath or wheezing #18 grams beclomethasone dipropionate 80 1 inh inhalation BID #10.6 grams 10/14/21 02/16/22 Rx mcg/actuation HFA breath activated aerosol (Qvar RediHaler) In and Out Catheters 16 Fr See Rx Instructions .Route .COMPLEX 11/19/21 02/16/22 History escitalopram oxalate 20 mg tablet 10 mg PO ONCE 11/19/21 03/08/22 History fluticasone 500 mcg-salmeterol 50 1 inh inhalation BID #60 ea 11/19/21 03/08/22 Rx mcg/dose blistr powdr for inhalation codeine 10 mg-guaifenesin 100 mg/5 10 ml PO Q4-6H PRN cough #473 mL 01/12/22 02/16/22 Rx mL oral liquid tramadol 50 mg tablet See Rx Instructions .Route 02/16/22 03/08/22 Rx .COMPLEX #40 tabs omeprazole 40 mg capsule,delayed See Rx Instructions .Route 03/03/22 03/08/22 Rx release .COMPLEX #180 caps ciprofloxacin HCl 500 mg tablet 500 mg PO Q12H PRN uti 03/08/22 02/16/22 History (Cipro) fluconazole 150 mg tablet 150 mg PO Q3D PRN yeast infections 03/08/22 02/16/22 H istory (Diflucan) sucralfate 1 gram tablet (Carafate) 1 g PO BID PRN gerd 03/08/22 03/08/22 History Allergies Allergy/AdvReac Type Severity Reaction Status Date / Time Sulfa (Sulfonamide Allergy Severe ANAPHYLACTI Verified 03/08/22 10:31 Antibiotics) C [SULFA (SULFONAMIDE ANTIBIOTICS)] meperidine [MEPERIDINE] AdvReac Mild CRABBY Verified 03/08/22 10:31 Exam Vital Signs (past 8 hours): - 03/08/22 10:44 Temperature 96.8 F L Pulse Rate 79 Respiratory Rate 16 Blood Pressure 167/86 H Pulse Oximetry 100 Oxygen Delivery Method Room Air Oxygen Flow Rate 0 Oxygen Delivery Method Room Air Oxygen Flow Rate 0 Narrative Exam Narrative: Generally: A well-developed, well-nourished female, no acute distress HEENT: No thyromegaly, no anterior cervical or supraclavicular lymphadenopathy. Lungs:Clear to auscultation bilaterally, no wheezes. Cardiovascular: Regular rate and rhythm, no murmurs, rubs, or gallops. Abdomen: Well-healed laparoscopy and mini-laparotomy scars. No hepatosplenomegaly. No masses palpable. External genitalia: Normal Vagina: Normal Cervix: Normal. Well-supported Bimanual exam: No masses or tenderness Extremities: No edema Assessment & Plan Assessment & Plan narrative: Assessment: 51-year-old 1 para 1 with bilateral complex ovarian cysts Vaginal bleeding after supracervical hysterectomy Plan: Laparoscopic removal of bilateral ovarian cysts, possible removal of ovaries Cautery of the endocervical canal The risks, benefits, and alternatives to the procedure were explained to the patient. The risks including bleeding, infection, injury to the bowel, bladder, or ureters. She understands these risks and agrees to proceed. A full par Q was held and consent form was signed. COVID-19 COVID-19 status: Negative Result date/Date tested (Pos, Neg/Pending): 03/08/22 Time Spent With Patient Time with patient: less than 30 minutes Critical Care time: I spent a total of [] minutes of critical care time on this patient's care today; this time is exclusive of procedural time.
--- NOTE | 2022-03-08 11:36 | PM.PREOP ---
Pre-operative Note COVID-19 COVID-19 status: Negative Result date/Date tested (Pos, Neg/Pending): 03/08/22 Criteria for continued procedure: Non-surgical alternatives not available or appropriate per current SOC Interval Note History & Physical reviewed/Exam performed by Physician: Yes Changes to H&P: No H&P completed within 30 days and has changed as indicated here:: 03/08/22
--- NOTE | 2022-03-08 12:09 | SUR.OPER ---
Lithotomy on padded OR bed, head on pillow, arms secured on padded arm boards at <90 degrees abduction. Legs secured in padded yellow fins stirrups.
[2022-03-08] MEDS: BUPIVACAINE 0.5% W/ EPI (PF) 30 ML VIAL INJ (12:30)
[2022-03-08] MEDS: ONDANSETRON 4 MG/2 ML INJ IV (13:01)
--- NOTE | 2022-03-08 13:01 | P.OP_ITS ---
Operative Date/Time/Diagnoses Date of procedure: 03/08/22 Time of procedure: 13:01 Pre-op diagnosis: Bilateral ovarian cysts Bleeding after laparoscopic supracervical hysterectomy Post-op diagnosis: same Procedure & Clinicians Procedure: Procedures Operation Date: 03/08/22 11:45 Actual Procedure Side Surgeon p Diagnostic laparoscopy with aspiration of right ovarian cyst, cautery of endocervical canal Mee Carney MD Indications: Bilateral ovarian cysts Bleeding after laparoscopic supracervical hysterectomy Surgeon: Mee Carney Anesthesia Type: General and Local Operative Notes Findings: Dense pelvic adhesions with bowel adhesed to the anterior abdominal wall, bilateral sidewalls, and down in the pelvis. Unable to visualize the left ovary due to colonic adhesions Unable to visualize the cervical stump due to adhesions The left ovary measured about 2 and half by 3 cm. Simple cyst in the right ovary. Normal liver and gallbladder Normal appendix Closure Type: primary Specimen(s): other (Fluid from right ovarian cyst) Applied: catheter (Bladder emptied at the beginning of the case) Estimated blood loss (mL): 5 Blood products transfused: none Procedure in detail: After informed consent was obtained, the patient was taken to the operating room where she was placed in the dorsal supine position. After adequate general endotracheal anesthesia was achieved, she was placed in the dorsal lithotomy position, and prepped and draped in the usual sterile fashion. A time-out was performed. A moistened sponge stick was placed into the vagina. Attention was turned to the abdomen where 6 cc of 0.5% Marcaine with epinephrine were injected in the umbilical fold. A 5 mm incision was made. The long Veress was placed into the peritoneal cavity, and its placement confirmed by aspiration and drop test. The abdominal cavity was insufflated with 3.6 L of CO2. The Veress needle was removed, and a long 5 mm trocar was placed without difficulty. Two other incisions were made 4 cm lateral to the midline after 5 cc of 0.5% Marcaine with epinephrine were injected. Two 5 mm trocars were placed under direct visualization. A probe was placed through the left trocar and a grasper through the right trocar attempt was made to visualize the ovaries. The left side there were dense colonic adhesions and the ovary could not be identified. On the right side the bowel could be moved out of the way with a probe and the right ovary was visualized. There appeared to be a simple cyst. Fluid was aspirated from the cyst and sent to cytology. The liver and gallbladder and appendix were normal. Due to the dense adhesions and the patient not being bowel prepped, a decision was made to not do any further laparoscopic work. The instruments were removed from the abdomen. The CO2 was allowed to escape. The trocars were removed. The incisions were repaired with 4-0 Monocryl in a subcuticular fashion. Steri-Strips and Allevyn dressings were placed. Attention was then turned to the vagina where the moistened sponge stick was removed. The cervix was grasped with a single-tooth tenaculum. The cervical canal was measured to be 2.1 cm. Using the long Bovie, the endocervical canal w as cauterized with the Bovie. The single-tooth tenaculum was removed from the anterior lip of the cervix. The bivalve speculum was removed from the vagina. Sponge, lap, and instrument counts were correct x2. The patient tolerated the procedure well, and was taken to PACU in stable condition. Complications: none Post-operative Condition: stable Disposition: PACU Plan for aftercare: Home after recovery
--- NOTE | 2022-03-08 13:08 | SUR.PHASEI ---
Dr Carney at bedside. Pt with pain and nausea. Zofran given. See order for Acetaminophen and Toradol.
[2022-03-08] MEDS: KETOROLAC 30 MG/ML VIAL IV (13:19)
[2022-03-08] MEDS: ACETAMINOPHEN IV 1,000 MG/100 ML VIAL 400 MG IV (13:22)
[2022-03-08] MEDS: LACTATED RINGERS 1,000 ML 84 ML IV (13:32)
[2022-03-08] MEDS: OXYCODONE IR 5 MG TABLET PO (13:50)
== END 2022-03-08 14:10 | disposition home or self-care (01) ==
PROVIDERS: PCP Family Medicine; Referring Provider Obstetrics & Gynecology; Visit Provider Obstetrics & Gynecology
PROC: (CPT 49322; principal; 2022-03-08 11:45)
DX: N83.201 Unspecified ovarian cyst, right side (principal); N83.202 Unspecified ovarian cyst, left side; N99.820 Postprocedural hemorrhage of a genitourinary system organ or structure following a genitourinary system procedure; Z20.822 Contact with and (suspected) exposure to COVID-19; K66.0 Peritoneal adhesions (postprocedural) (postinfection); Z01.812 Encounter for preprocedural laboratory examination
CPT/HCPCS: 49322; 57510; 87635; J0131; J0330; J1100; J1170; J1885; J2405; J2704

== ENCOUNTER → 2022-07-28 11:19 | Outpatient (CLI) | payer BC, OTHER, MEDICAID, SELFPAY ==
[2019-05-02 14:53] VITALS: BMI 35.0
--- NOTE | 2022-07-28 11:21 | DI.RAD.S_ITS ---
PROCEDURE: FL BARIUM SWALLOW INDICATIONS: Dysphagia COMPARISON: [facility] , BARIUM SWALLOW, 03/29/2008, 9:26. FINDINGS: Function: There is normal esophageal peristalsis. [id number] elicited gastroesophageal reflux. There is normal transit of a calibrated barium tablet through the esophagus into the stomach. Morphology: Single contrast views show no esophageal strictures, extrinsic mass effects, or diverticula. There is an intact Hafsa fundoplication, which has slipped above the diaphragm, resulting in a moderate hiatal hernia. IMPRESSION: Moderate hiatal hernia with a slipped Hafsa fundoplication. Dictated by: Eugene Drake M.D. on 07/28/2022 at 12:38 Approved by: Eugene Drake M.D. on 07/28/2022 at 12:39
== END ==
PROVIDERS: PCP Family Medicine; Referring Provider Surgery; Visit Provider Surgery
DX: T85.528A Displacement of other gastrointestinal prosthetic devices, implants and grafts, initial encounter (principal); R13.10 Dysphagia, unspecified; K44.9 Diaphragmatic hernia without obstruction or gangrene
CPT/HCPCS: 74220

== ENCOUNTER → 2022-11-25 11:08 | Outpatient (CLI) | payer BC, OTHER, MEDICAID, SELFPAY ==
[2019-05-02 14:53] VITALS: BMI 35.0
[2022-11-25 11:57] LABS: Add Manual Diff / Slide Review NO; Basophils Absolute Auto 100 /uL (0-100); Basophils Percent Auto 0.6 % (0-2); Eosinophils Absolute Auto 100 /uL (0-450); Eosinophils Percent Auto 1.1 % (2-4); Hematocrit 37.9 % (36-46); Hemoglobin 12.5 g/dL (12.0-16.0); Lymphocytes Absolute Auto 1600 /uL (1100-4500); Lymphocytes Percent Auto 19.1 % (25-40); Monocytes Absolute Auto 500 /uL (0-900); Monocytes Percent Auto 5.3 % (3-14); Neutrophils Absolute Auto 6300 /uL (1500-7000); Neutrophils Percent Auto 73.9 % (50-75); Platelet Count 336 X10^3/uL (150-400); Red Blood Cell Count 4.62 X10^6/uL (4.0-5.2); White Blood Cell Count 8.5 X10^3/uL (4.5-11.0)
[2022-11-25 12:43] LABS: Alanine Aminotransferase 18 IU/L (<35); Albumin 3.8 g/dL (3.5-5.0); Albumin Globulin Ratio 1.4 (1.0-2.8); Alkaline Phosphatase 92 U/L (38-126); Aspartate Aminotransferase 20 IU/L (14-36); BUN Creatinine Ratio 11.8 (6-22); Bilirubin Total 0.3 mg/dL (0.2-1.3); Blood Urea Nitrogen 10 mg/dL (7-17); Calcium 9.1 mg/dL (8.4-10.2); Carbon Dioxide 26 mmol/L (22-32); Chloride 103 mmol/L (98-107); Cholesterol 194 mg/dL (140-199); Estimated Glomerular Filt Rate > 60 mL/min (>60); Globulin 2.7 g/dL (1.7-4.1); Glucose 86 mg/dL (70-100); HDL Cholesterol 74 mg/dL (40-60); HEMOLYSIS < 15 (0-50); LDL Cholesterol Calculated 100 mg/dL (<100); Potassium 4.2 mmol/L (3.4-5.1); Sodium 135 mmol/L (137-145); Total Protein 6.5 g/dL (6.3-8.2); Triglycerides 100 mg/dL (35-150)
[2022-11-25 12:57] LABS: Free T3, Triiodothyronine Free 3.21 pg/mL (2.77-5.27); Free T4, Direct Thyroxine 1.31 ng/dL (0.78-2.19)
[2022-11-25 15:46] LABS: Vitamin D 25 Hydroxy (D3) 18.2 ng/mL (30.0-100.0)
== END ==
PROVIDERS: PCP Family Medicine; Referring Provider Family Medicine; Visit Provider Family Medicine
DX: D50.0 Iron deficiency anemia secondary to blood loss (chronic) (principal); E03.9 Hypothyroidism, unspecified; E55.9 Vitamin D deficiency, unspecified
CPT/HCPCS: 36415; 80053; 80061; 82306; 84439; 84443; 84481; 85025

== ENCOUNTER → 2023-03-24 07:53 | Outpatient (CLI) | payer BC, SELFPAY ==
[2022-11-25 12:04] VITALS: BMI 35.0
[2023-03-24 09:14] LABS: Add Manual Diff / Slide Review NO; Basophils Absolute Auto 100 /uL (0-100); Basophils Percent Auto 1.2 % (0-2); Eosinophils Absolute Auto 100 /uL (0-450); Eosinophils Percent Auto 1.9 % (2-4); Hematocrit 38.7 % (36-46); Hemoglobin 12.8 g/dL (12.0-16.0); Lymphocytes Absolute Auto 2100 /uL (1100-4500); Lymphocytes Percent Auto 29.3 % (25-40); Mean Corpuscular HGB Conc 33.2 % (30-36); Mean Corpuscular Hemoglobin 27.7 PG (26-34); Mean Corpuscular Volume 83.3 fL (80-100); Monocytes Absolute Auto 400 /uL (0-900); Monocytes Percent Auto 5.5 % (3-14); Neutrophils Absolute Auto 4400 /uL (1500-7000); Neutrophils Percent Auto 62.1 % (50-75); Platelet Count 330 X10^3/uL (150-400); Red Blood Cell Count 4.64 X10^6/uL (4.0-5.2); Red Cell Distribution Width 14.5 % (11.6-14.8); White Blood Cell Count 7.1 X10^3/uL (4.5-11.0)
[2023-03-24 12:23] LABS: Vitamin D 25 Hydroxy (D3) 16.6 ng/mL (30.0-100.0)
[2023-03-24 12:52] LABS: TSH w/ Reflex to FT4 < 0.02 uIU/mL (0.47-4.68)
[2023-03-24 14:38] LABS: Free T4, Direct Thyroxine 1.52 ng/dL (0.78-2.19)
== END ==
PROVIDERS: PCP Family Medicine; Referring Provider Family Medicine; Visit Provider Family Medicine
DX: D64.9 Anemia, unspecified (principal); E03.9 Hypothyroidism, unspecified; E55.9 Vitamin D deficiency, unspecified
CPT/HCPCS: 36415; 82306; 84439; 84443; 85025

== ENCOUNTER → 2023-06-01 07:14 | Outpatient (CLI) | payer BC, SELFPAY ==
[2022-11-25 12:04] VITALS: BMI 35.0
[2023-06-01 08:20] LABS: Vitamin D 25 Hydroxy (D3) 20.9 ng/mL (30.0-100.0)
[2023-06-01 08:38] LABS: TSH w/ Reflex to FT4 2.15 uIU/mL (0.47-4.68)
== END ==
PROVIDERS: PCP Family Medicine; Referring Provider Family Medicine; Visit Provider Family Medicine
DX: E03.9 Hypothyroidism, unspecified (principal); E55.9 Vitamin D deficiency, unspecified
CPT/HCPCS: 36415; 82306; 83735; 84443

== ENCOUNTER 2023-06-28 14:17 | Emergency (ER) | payer BC, SELFPAY ==
[2022-11-25 12:04] VITALS: BMI 35.0
[2023-06-28] VITALS (25 sets, daily range): BP systolic 136–200; BP diastolic 57–97; PULSE 64–81; RESP 12–41; TEMP 36.9; O2SAT 95–100; BMI 32.4
[2023-06-28 14:49] LABS: Add Manual Diff / Slide Review NO; Basophils Absolute Auto 100 /uL (0-100); Basophils Percent Auto 0.9 % (0-2); Eosinophils Absolute Auto 100 /uL (0-450); Eosinophils Percent Auto 1.1 % (2-4); Hemoglobin 13.9 g/dL (12.0-16.0); Lymphocytes Absolute Auto 1800 /uL (1100-4500); Mean Corpuscular HGB Conc 33.1 % (30-36); Mean Corpuscular Hemoglobin 28.1 PG (26-34); Monocytes Absolute Auto 700 /uL (0-900); Monocytes Percent Auto 5.2 % (3-14); Neutrophils Absolute Auto 9900 /uL (1500-7000); Neutrophils Percent Auto 78.8 % (50-75); Platelet Count 374 X10^3/uL (150-400); Red Blood Cell Count 4.95 X10^6/uL (4.0-5.2); White Blood Cell Count 12.6 X10^3/uL (4.5-11.0)
--- NOTE | 2023-06-28 14:56 | DI.RAD.S_ITS ---
PROCEDURE: XR ACUTE ABDOMEN SERIES INDICATIONS: no bm x 5 days, n/v. TECHNIQUE: One view chest and two views of the abdomen were acquired. COMPARISON: None. FINDINGS: Surgical changes and devices: None. Chest: Lungs are clear. Heart size is normal. No pleural effusions. No pneumoperitoneum. Abdomen: Bowel gas pattern demonstrates scattered, mildly dilated fluid-filled loops of bowel. Mild to moderate colonic stool. No suspicious calcifications. Visualized solid organ contours appear normal. Bones: No suspicious bony lesions. IMPRESSION: Scattered mildly dilated fluid-filled loops of bowel suggestive of partial obstruction. Mild to moderate colonic stool. Dictated by: Theodora Ricci M.D. on 06/28/2023 at 16:24 Approved by: Theodora Ricci M.D. on 06/28/2023 at 16:24
[2023-06-28 15:17] LABS: Alanine Aminotransferase 16 IU/L (<35); Albumin 4.1 g/dL (3.5-5.0); Albumin Globulin Ratio 1.4 (1.0-2.8); Alkaline Phosphatase 107 U/L (38-126); Aspartate Aminotransferase 19 IU/L (14-36); BUN Creatinine Ratio 16.7 (6-22); Bilirubin Total 0.6 mg/dL (0.2-1.3); Blood Urea Nitrogen 16 mg/dL (7-17); Calcium 9.4 mg/dL (8.4-10.2); Carbon Dioxide 29 mmol/L (22-32); Chloride 104 mmol/L (98-107); Estimated Glomerular Filt Rate > 60 mL/min (>60); Globulin 2.9 g/dL (1.7-4.1); Glucose 99 mg/dL (70-100); HEMOLYSIS < 15 (0-50); Lipase 30 U/L (23-300); Potassium 4.1 mmol/L (3.4-5.1); Sodium 138 mmol/L (137-145)
[2023-06-28] MEDS: SODIUM CHLORIDE 0.9% 1,000 ML 1000 ML IV (17:01)
[2023-06-28] MEDS: ONDANSETRON 4 MG/2 ML INJ IV ×2 (17:01→19:25)
[2023-06-28] MEDS: MORPHINE 4 MG/ML INJ IV (17:01)
--- NOTE | 2023-06-28 17:18 | DI.CT.S_ITS ---
PROCEDURE: CT ABDOMEN PELVIS W CON INDICATIONS: abd pain, ? obstruction TECHNIQUE: After the administration of intravenous contrast, axial sections acquired from the lung bases to the pubic symphysis. Coronal and sagittal reformats were performed. For radiation dose reduction, the following was used: automated exposure control, adjustment of mA and/or kV according to patient size. COMPARISON: [facility], CR, XR ACUTE ABDOMEN SERIES, 06/28/2023, 15:00. [facility], CT, CT ABDOMEN PELVIS W CON, 05/20/2018, 1:31. FINDINGS: Image quality: Diagnostic. Lower Chest: No significant findings. ABDOMEN: Liver: No solid mass. Gallbladder: Cholecystectomy. Biliary ducts: No biliary dilation. Pancreas: No ductal dilation. Spleen: Size is within normal limits. Adrenal Glands: No adrenal nodules. Kidneys and Ureters: No hydronephrosis. No solid mass. No complex renal cystic lesion which requires follow up. Stomach and Bowel: There is moderate colonic wall thickening seen distally, beginning at the level of the splenic flexure, yet worst within the sigmoid colon. Mild surrounding inflammatory change can be seen. The more proximal colon is within normal limits. The cecum is low lying. No appendix (either normal or abnormal) is identified on this study. No dilated loops of small bowel are seen. The stomach demonstrates no significant abnormality. Peritoneum: No abnormal intraperitoneal fluid. No free air. Ventral Wall: No significant ventral hernia. Abdominal Nodes: No retroperitoneal or mesenteric adenopathy by size criteria. Vessels: Aorta and inferior vena cava are normal in size. PELVIS: Pelvic Organs: The uterus appears normal for age. No adnexal masses are seen. Bladder: No bladder wall thickening, accounting for underdistention. Pelvic Nodes: No enlarged lymph nodes. Miscellaneous: No inguinal hernias are seen. Bones: No aggressive osseous abnormality. Age-appropriate bony degenerative changes are seen. IMPRESSION: Distal colitis, with generalized wall thickening, which is worst within the sigmoid colon. Surrounding inflammatory change can be seen. No findings of perforation or abscess can be seen. Please correlate with potential infectious and inflammatory causes of colitis. Additional findings: Cholecystectomy Dictated by: Julian Recio M.D. on 06/28/2023 at 16:57 Approved by: Julian Recio M.D. on 06/28/2023 at 17:00
[2023-06-28] MEDS: HYDROMORPHONE 1 MG INJ IV (17:30)
--- NOTE | 2023-06-28 18:38 | ED.GENADULT ---
HPI - General Adult General Chief complaint: Abdominal Pain Stated complaint: constipation t-5, nausea/pain Time Seen by Provider: 06/28/23 17:51 Source: patient Mode of arrival: Ambulatory History of Present Illness HPI narrative: Patient has a 52-year-old female. Approximately 2 weeks ago she arrived back home from a trip to [place]. Proximally 5 days ago she started to develop nausea and vomiting and abdominal discomfort. She states that she has not had a bowel movement in the past 5 days. She states that she normally has diarrhea. She also states that she has been told that she has adhesions after a laparoscopy for nurse practitioner hospitalist procedure. Has had decreased passage of flatus as well. Related Data Home Medications Medication Instructions Recorded Confirmed acetaminophen 325 mg tablet 500 mg PO Q6-8H PRN pain or 05/11/18 04/28/23 (Tylenol) headache In and Out Catheters 16 Fr See Rx Instructions .Route .COMPLEX 11/19/21 04/28/23 Previous Rx's Medication Instructions Recorded Knee brace #1 ea 11/29/19 clonazepam 1 mg tablet 1 mg PO TID PRN anxiety #20 tabs 11/20/20 diphenoxylate-atropine 2.5 1 tab PO Q6H PRN diarrhea #20 tabs 08/07/21 mg-0.025 mg tablet (Lomotil) ondansetron 4 mg disintegrating 4 mg PO Q6H PRN nausea and 03/08/22 tablet vomiting #20 tabs sumatriptan succinate 100 mg tablet 100 mg PO .COMPLEX PRN migraine 09/09/22 headache #30 tabs omeprazole 40 mg capsule,delayed See Rx Instructions .Route 09/17/22 release .COMPLEX #30 caps albuterol sulfate 90 mcg/actuation 2 puff inhalation Q6H PRN 11/30/22 aerosol inhaler (Ventolin HFA) shortness of breath or wheezing #18 grams inhalational spacing device (Cheng #1 ea 11/30/22 Aerosol Humphreys Enhancer spacer) lidocaine 5 % topical patch 1 patch topical DAILY PRN pain #30 12/02/22 ea ciprofloxacin HCl 500 mg tablet 500 mg PO Q12H PRN uti #6 tabs 12/27/22 (Cipro) bupropion HCl 150 mg 24 hr tablet, 150 mg PO QAM #90 tabs 03/11/23 extended release bupropion HCl 300 mg 24 hr tablet, 300 mg PO QAM #90 tabs 03/11/23 extended release ferrous sulfate 325 mg (65 mg 325 mg PO BID #180 tabs 04/06/23 iron) tablet levothyroxine 150 mcg tablet 150 mcg PO DAILY #90 tabs 04/06/23 magnesium 200 mg tablet 200 mg PO DAILY #90 tabs 04/06/23 tramadol 50 mg tablet See Rx Instructions .Route 05/19/23 .COMPLEX #60 tabs trazodone 50 mg tablet 50 mg PO BEDTIME PRN insomnia #30 05/30/23 tabs fluticasone 500 mcg-salmeterol 50 1 inh inhalation BID #60 ea 06/02/23 mcg/dose blistr powdr for inhalation Disabled Parking Permit #1 ea 06/03/23 cholecalciferol (vitamin D3) 250 250 mcg PO DAILY #90 caps 06/03/23 mcg (10,000 unit) capsule prednisone 10 mg tablet See Rx Instructions PO DAILY #24 06/03/23 tabs ciprofloxacin 500 mg/5 mL oral 500 mg (5 mL) PO BID 7 days #70 mL 06/28/23 suspension (Cipro) tramadol 50 mg tablet 50 mg PO BID PRN pain #7 tabs 06/28/23 Allergies Allergy/AdvReac Type Severity Reaction Status Date / Time Sulfa (Sulfonamide Allergy Severe ANAPHYLACTI Verified 06/28/23 16:42 Antibiotics) C [SULFA (SULFONAMIDE ANTIBIOTICS)] meperidine [MEPERIDINE] AdvReac Mild CRABBY Verified 06/28/23 16:42 Review of Systems Constitutional Constitutional: Reports system reviewed and no additional complaints, except as documented Gastrointestinal Gastrointestinal: Reports system reviewed and no additional complaints, except as documented Genitourinary Genitourinary: Reports system reviewed and no additional complaints, except as documented Integumentary/Breasts Skin/Breast: Reports system reviewed and no additional complaints, except as documented Patient History Medical History Oral thrush Anesthesia complication Laceration of bladder COVID-19 virus infection (02/10/21) Excessive cerumen in both ear canals Vitamin D deficiency Stress fracture, left foot, sequela Somatic dysfunction of lower extremity Chronic pain of left knee Chronic pain of right knee Pain and swelling of left ankle Anxiety and depression Abnormal vaginal bleeding High blood pressure Sinusitis Hiatal hernia Menorrhagia Anemia Anxiety Fibroids Seizures Hypothyroidism GERD (gastroesophageal reflux disease) Depression Asthma Surgical History S/P partial hysterectomy History of Hafsa fundoplication History of surgical removal of meniscus of knee (01/2004) History of cholecystectomy (06/2013) History of sinus surgery (04/2000) History of gastrointestinal surgery (07/2007) History of anterior cruciate ligament surgery (03/2014) History of orthopedic surgery (02/2003) Status post laparoscopic cholecystectomy (2013) History of tonsillectomy (05/1995) History of third molar tooth extraction (1989) Family History Father Blood clot in vein Grandfather Heart attack Cancer Grandmother Diabetes mellitus Mother Diabetes mellitus Cancer Social History marital status: household members: spouse lives independently: Yes pets and animals: Yes occupational status: employed Smoking Status: Never smoker alcohol intake: current Smoking Status: Never smoker alcohol intake frequency: holidays/special occasions only Substance Use Type: marijuana Exam Initial Vital Signs Initial Vital Signs: Vital Signs Temperature 98.5 F 06/28/23 14:28 Pulse Rate 81 06/28/23 14:28 Respiratory Rate 18 06/28/23 14:28 Blood Pressure 178/93 H 06/28/23 14:28 Pulse Oximetry 99 06/28/23 14:28 Oxygen Delivery Method Room Air 06/28/23 14:28 Const General: No ill appearing HENMT Head: normal to inspection and normocephalic Resp Effort & Inspection: normal respiratory effort Cardio Rate: regular rate GI Inspection: non-distended Skin General: no rashes or lesions noted Neuro General: patient alert and patient awake Course Orders Ordered: ED Orders 06/28/23 17:18 CT abdomen pelvis w con Stat Discontinued Medications Ciprofloxacin (Ciprofloxacin 250 Mg Tablet) 500 mg PO NOW ONE Stop: 06/28/23 19:34 Last Admin: 06/28/23 19:36 Dose: 500 mg Documented By: MARY ANN Hydromorphone HCl (Hydromorphone 1 Mg Inj) 1 mg IV NOW ONE Stop: 06/28/23 17:29 Last Admin: 06/28/23 17:30 Dose: 1 mg Documented By: RL Hydromorphone HCl (Hydromorphone 0.5 Mg Inj) 0.5 mg IV NOW ONE Stop: 06/28/23 19:43 Last Admin: 06/28/23 19:45 Dose: 0.5 mg Documented By: MARY ANN Sodium Chloride (Normal Saline 0.9%) 1,000 mls @ 1,000 mls/hr IV BOLUS ONE Stop: 06/28/23 17:44 Last Infusion: 06/28/23 19:26 Dose: Infused Documented By: Admin: 06/28/23 17:01 Dose: 1,000 mls/hr Documented By: MARY ANN Ketorolac Tromethamine (Ketorolac 30 Mg/Ml Vial) 30 mg IV NOW ONE Stop: 06/28/23 18:19 Last Admin: 06/28/23 18:53 Dose: 30 mg Documented By: RENAY Lorazepam (Lorazepam 2 Mg/Ml Inj) 0.5 mg IV NOW ONE Stop: 06/28/23 20:50 Last Admin: 06/28/23 20:56 Dose: 0.5 mg Documented By: RENAY Morphine Sulfate (Morphine 4 Mg/Ml Inj) 4 mg IV NOW ONE Stop: 06/28/23 16:46 Last Admin: 06/28/23 17:01 Dose: 4 mg Documented By: MARY ANN Ondansetron HCl (Ondansetron 4 Mg Odt) 4 mg PO NOW PRN PRN Reason: Nausea And Vomiting Ondansetron HCl (Ondansetron 4 Mg/2 Ml Inj) 4 mg IV NOW PRN PRN Reason: Nausea And Vomiting Last Admin: 06/28/23 19:25 Dose: 4 mg Documented By: MARY ANN Admin: 06/28/23 17:01 Dose: 4 mg Documented By: MARY ANN Ondansetron HCl (Ondansetron 4 Mg Odt Prepack) 1 bottle MISC DIRECTED ONE Stop: 06/28/23 21:30 Last Admin: 06/28/23 21:56 Dose: Not Given Documented By: MARY ANN Tramadol HCl (Tramadol 50 Mg Prepack) 1 bottle MISC DIRECTED ONE Stop: 06/28/23 21:30 Last Admin: 06/28/23 21:57 Dose: 1 bottle Documented By: MARY ANN Vital Signs Vital signs: Vital Signs - 8 hr 06/28/23 17:01 06/28/23 17:02 06/28/23 17:02 Pulse Rate 69 70 Respiratory Rate 13 Blood Pressure 190/97 H Pulse Oximetry 06/28/23 17:03 06/28/23 17:03 06/28/23 17:15 Pulse Rate 71 Respiratory Rate 15 Blood Pressure 168/84 H 157/70 H Pulse Oximetry 100 06/28/23 17:15 06/28/23 17:30 06/28/23 17:35 Pulse Rate 71 76 Respiratory Rate 17 13 Blood Pressure 157/70 H Pulse Oximetry 99 100 06/28/23 17:35 06/28/23 17:46 06/28/23 17:46 Pulse Rate 76 69 Respiratory Rate 12 17 Blood Pressure 137/63 Pulse Oximetry 100 100 06/28/23 18:00 06/28/23 18:00 06/28/23 18:16 Pulse Rate 69 77 Respiratory Rate 17 41 H Blood Pressure 136/57 L Pulse Oximetry 99 99 06/28/23 18:16 06/28/23 18:30 06/28/23 18:30 Pulse Rate 76 Respiratory Rate 35 H Blood Pressure 141/62 H 149/70 H Pulse Oximetry 100 06/28/23 18:46 06/28/23 18:46 06/28/23 19:00 Pulse Rate 73 Respiratory Rate 41 H Blood Pressure 200/84 H 183/74 H Pulse Oximetry 99 06/28/23 19:00 06/28/23 19:16 06/28/23 19:16 Pulse Rate 69 80 Respiratory Rate 24 32 H Blood Pressure 187/82 H Pulse Oximetry 100 99 06/28/23 19:30 06/28/23 19:31 06/28/23 19:31 Pulse Rate 67 64 Respiratory Rate 21 31 H Blood Pressure 164/71 H Pulse Oximetry 98 98 06/28/23 19:45 06/28/23 19:45 06/28/23 20:00 Pulse Rate 73 Respiratory Rate 14 Blood Pressure 155/60 H 156/70 H Pulse Oximetry 98 06/28/23 20:00 06/28/23 20:15 06/28/23 20:15 Pulse Rate 74 68 Respiratory Rate 26 H 34 H Blood Pressure 153/71 H Pulse Oximetry 97 96 06/28/23 20:30 06/28/23 20:31 06/28/23 20:31 Pulse Rate 75 74 Respiratory Rate 17 17 Blood Pressure 179/77 H Pulse Oximetry 95 97 06/28/23 20:45 06/28/23 20:45 06/28/23 21:00 Pulse Rate 73 Respiratory Rate 14 Blood Pressure 162/73 H 166/60 H Pulse Oximetry 96 06/28/23 21:00 06/28/23 21:15 06/28/23 21:15 Pulse Rate 74 70 Respiratory Rate 15 15 Blood Pressure 136/64 Pulse Oximetry 97 96 06/28/23 21:30 06/28/23 21:30 Pulse Rate 71 Respiratory Rate 14 Blood Pressure 137/66 Pulse Oximetry 96 Medical Decision Making Lab Data Lab results reviewed: Yes I reviewed the patient's lab results. 06/28/23 14:40 06/28/23 14:40 Labs: Lab Results 06/28/23 Range/Units 14:40 WBC 12.6 H (4.5-11.0) X10^3/uL RBC 4.95 (4.0-5.2) X10^6/uL Hgb 13.9 (12.0-16.0) g/dL Hct 42.0 (36-46) % MCV 85.0 (80-100) fL MCH 28.1 (26-34) PG MCHC 33.1 (30-36) % RDW 14.0 (11.6-14.8) % Plt Count 374 (150-400) X10^3/uL Neut % (Auto) 78.8 H (50-75) % Lymph % (Auto) 14.0 L (25-40) % [place] % (Auto) 5.2 (3-14) % Eos % (Auto) 1.1 L (2-4) % Baso % (Auto) 0.9 (0-2) % Neut # (Auto) 9900 H (1344-7411) /uL Lymph # (Auto) 1800 (6987-8596) /uL [place] # (Auto) 700 (0-900) /uL Eos # (Auto) 100 (0-450) /uL Baso # (Auto) 100 (0-100) /uL Sodium 138 (137-145) mmol/L Potassium 4.1 (3.4-5.1) mmol/L Chloride 104 (98-107) mmol/L Carbon Dioxide 29 (22-32) mmol/L BUN 16 (7-17) mg/dL Creatinine 0.96 (0.52-1.04) mg/dL Estimated GFR > 60 (>60) mL/min BUN/Creatinine Ratio 16.7 (6-22) Glucose 99 (70-100) mg/dL Calcium 9.4 (8.4-10.2) mg/dL Total Bilirubin 0.6 (0.2-1.3) mg/dL AST 19 (14-36) IU/L ALT 16 (<35) IU/L Alkaline Phosphatase 107 (38-126) U/L Total Protein 7.0 (6.3-8.2) g/dL Albumin 4.1 (3.5-5.0) g/dL Globulin 2.9 (1.7-4.1) g/dL Albumin/Globulin Ratio 1.4 (1.0-2.8) Lipase 30 (23-300) U/L Urine Dip Bedside Urine Glucose Negative Bedside Urine Bilirubin - Negative Bedside Urine Ketone + 15 Urine Specific [place] 1.015 Bedside Urine Occult Blood - Negative Bedside Urine pH 6.0 Bedside Urine Protein - Negative Bedside Urine Urobilinogen - Negative Bedside Urine Nitrite - Negative Bedside Urine Leukocytes - Negative Esterase Point of care testing: Urine Dip Bedside Urine Glucose Negative Bedside Urine Bilirubin - Negative Bedside Urine Ketone + 15 Urine Specific [place] 1.015 Bedside Urine Occult Blood - Negative Bedside Urine pH 6.0 Bedside Urine Protein - Negative Bedside Urine Urobilinogen - Negative Bedside Urine Nitrite - Negative Bedside Urine Leukocytes - Negative Esterase Imaging Data Abdominal x-ray: Radiologist's Impression: PROCEDURE: XR ACUTE ABDOMEN SERIES INDICATIONS: no bm x 5 days, n/v. TECHNIQUE: One view chest and two views of the abdomen were acquired. COMPARISON: None. FINDINGS: Surgical changes and devices: None. Chest: Lungs are clear. Heart size is normal. No pleural effusions. No pneumoperitoneum. Abdomen: Bowel gas pattern demonstrates scattered, mildly dilated fluid-filled loops of bowel. Mild to moderate colonic stool. No suspicious calcifications. Visualized solid organ contours appear normal. Bones: No suspicious bony lesions. IMPRESSION: Scattered mildly dilated fluid-filled loops of bowel suggestive of partial obstruction. Mild to moderate colonic stool. CT scan - abdomen/pelvis: Radiologist's Impression: PROCEDURE: CT ABDOMEN PELVIS W CON INDICATIONS: abd pain, ? obstruction TECHNIQUE: After the administration of intravenous contrast, axial sections acquired from the lung bases to the pubic symphysis. Coronal and sagittal reformats were performed. For radiation dose reduction, the following was used: automated exposure control, adjustment of mA and/or kV according to patient size. COMPARISON: [facility], CR, XR ACUTE ABDOMEN SERIES, 06/28/2023, 15:00. [facility], CT, CT ABDOMEN PELVIS W CON, 05/20/2018, 1:31. FINDINGS: Image quality: Diagnostic. Lower Chest: No significant findings. ABDOMEN: Liver: No solid mass. Gallbladder: Cholecystectomy. Biliary ducts: No biliary dilation. Pancreas: No ductal dilation. Spleen: Size is within normal limits. Adrenal Glands: No adrenal nodules. Kidneys and Ureters: No hydronephrosis. No solid mass. No complex renal cystic lesion which requires follow up. Stomach and Bowel: There is moderate colonic wall thickening seen distally, beginning at the level of the splenic flexure, yet worst within the sigmoid colon. Mild surrounding inflammatory change can be seen. The more proximal colon is within normal limits. The cecum is low lying. No appendix (either normal or abnormal) is identified on this study. No dilated loops of small bowel are seen. The stomach demonstrates no significant abnormality. Peritoneum: No abnormal intraperitoneal fluid. No free air. Ventral Wall: No significant ventral hernia. Abdominal Nodes: No retroperitoneal or mesenteric adenopathy by size criteria. Vessels: Aorta and inferior vena cava are normal in size. PELVIS: Pelvic Organs: The uterus appears normal for age. No adnexal masses are seen. Bladder: No bladder wall thickening, accounting for underdistention. Pelvic Nodes: No enlarged lymph nodes. Miscellaneous: No inguinal hernias are seen. Bones: No aggressive osseous abnormality. Age-appropriate bony degenerative changes are seen. IMPRESSION: Distal colitis, with generalized wall thickening, which is worst within the sigmoid colon. Surrounding inflammatory change can be seen. No findings of perforation or abscess can be seen. Please correlate with potential infectious and inflammatory causes of colitis. Additional findings: Cholecystectomy ECG Data Attestation: I personally reviewed and interpreted this ECG as follows: Interpretation: Sinus rhythm Ventricular rate is 72 Normal axis Normal QRS Normal QTC No ST T wave changes MDM Narrative Medical decision making narrative: Patient is tolerating oral intake issue was able to hold down a dose of antibiotics here in the ER. CT scan shows findings consistent with distal colitis. No signs of perforations or abscesses or obstructions. Patient does have a leukocytosis but this could be stress reaction from the vomiting and also from the colitis. She was unable to provide us a stool sample here in the ER. Urinalysis is unremarkable. There was no indication for admission to the hospital. No indication for emergent surgical consultation. She requested liquid form the antibiotic which was prescribed and sent to the pharmacy of her choice. She was given return precautions. Discharge Plan Departure Patient Disposition: Home Clinical Impression: Colitis Instructions: DI for Colitis Activity Restrictions/Additional Instructions: I do recommend a bland diet for the next couple days and increasing your fluid intake by drinking small amounts frequently. Take the antibiotics as directed. Contact your primary provider for a follow-up. Return to the emergency department for new symptoms. Prescriptions: New ciprofloxacin [Cipro] 500 mg/5 mL suspension,microcapsule recon 500 mg PO BID 7 Days Qty: 70 0RF tramadol 50 mg tablet 50 mg PO BID PRN (Reason: pain) Qty: 7 0RF No Action clonazepam 1 mg tablet 1 mg PO TID PRN (Reason: anxiety) Qty: 20 0RF diphenoxylate-atropine [Lomotil] 2.5-0.025 mg tablet 1 tab PO Q6H PRN (Reason: diarrhea) Qty: 20 0RF omeprazole 40 mg capsule,delayed release(DR/EC) See Rx Instructions .ROUTE .COMPLEX Qty: 30 2RF Dose Instruction: TAKE 1 CAPSULE BY MOUTH TWICE DAILY Rx Instructions: TAKE 1 CAPSULE BY MOUTH TWICE DAILY albuterol sulfate [Ventolin HFA] 90 mcg/actuation HFA aerosol inhaler 2 puff INHALATION Q6H PRN (Reason: shortness of breath or wheezing) Qty: 18 0RF Rx Instructions: NO ADDITIONAL REFILLS UNTIL SEEN FOR APPOINTMENT. 11.30.22 (DME) Cheng Aerosol Humphreys Enhancer Spacer See Rx Instructions .Route Qty: 1 0RF Rx Instructions: As directed ciprofloxacin HCl [Cipro] 500 mg tablet 500 mg PO Q12H PRN (Reason: uti) Qty: 6 0RF bupropion HCl 300 mg tablet extended release 24 hr 300 mg PO QAM Qty: 90 0RF Rx Instructions: TAKE ONE TABLET BY MOUTH EVERY MORNING WITH BUPROPION 150 MG TABLET TO EQUAL 450 MG DAILY bupropion HCl 150 mg tablet extended release 24 hr 150 mg PO QAM Qty: 90 0RF Rx Instructions: TAKE ONE TABLET BY MOUTH EVERY MORNING WITH BUPROPION 300 MG TABLET TO EQUAL 450 MG DAILY tramadol 50 mg tablet See Rx Instructions .ROUTE .COMPLEX Qty: 60 0RF Rx Instructions: Take 1-2 tablets by mouth at bedtime as needed for pain. EXEMPT trazodone 50 mg tablet 50 mg PO BEDTIME PRN (Reason: insomnia) Qty: 30 1RF fluticasone propion-salmeterol 500-50 mcg/dose blister with device 1 inh inhalation BID Qty: 60 2RF In and Out Catheters 16 Fr See Rx Instructions .ROUTE .COMPLEX Dose Instruction: Use as directed for urinary retention ; Rx Instructions: Use as directed for urinary retention. sumatriptan succinate 100 mg tablet 100 mg PO .COMPLEX PRN (Reason: migraine headache) Qty: 30 5RF Rx Instructions: 100 mg PO BID PRN; Take 1 at onset of KELLY then may repeat once in 24 hours, 6 hours after last dose lidocaine 5 % adhesive patch,medicated 1 patch topical DAILY PRN (Reason: pain) Qty: 30 7RF Rx Instructions: leave on most painful area for up to 12 hrs (DME) Knee brace Qty: 1 0RF Rx Instructions: A fitted knee brace to help patient mobility. - per what insurance will pay for. levothyroxine 150 mcg tablet 150 mcg PO DAILY Qty: 90 1RF ferrous sulfate 325 mg (65 mg iron) tablet 325 mg PO BID Qty: 180 3RF magnesium 200 mg tablet 200 mg PO DAILY Qty: 90 0RF prednisone 10 mg tablet See Rx Instructions PO DAILY Qty: 24 0RF Rx Instructions: Taper as directed over 14 days orally daily; cholecalciferol (vitamin D3) 250 mcg (10,000 unit) capsule 250 mcg PO DAILY Qty: 90 3RF (DME) Disabled Parking Permit See Rx Instructions .ROUTE .MEDSUPPLY Qty: 1 0RF Rx Instructions: Valid for 1 year acetaminophen [Tylenol] 325 mg Tablet 500 mg PO Q6-8H PRN (Reason: pain or headache) Patient Comments: Takes 2 tab. of 500 mg. total of 1000 mg. every 6 hrs. PRN Rx Instructions: 500 mg orally as needed ondansetron 4 mg tablet,disintegrating 4 mg PO Q6H PRN (Reason: nausea and vomiting) Qty: 20 0RF Referrals: Luke Travis DO [Primary Care Provider] - Stand Alone Forms: Patient Portal/API
[2023-06-28] MEDS: KETOROLAC 30 MG/ML VIAL IV (18:53)
[2023-06-28] MEDS: CIPROFLOXACIN 250 MG TABLET 500 MG PO (19:36)
[2023-06-28] MEDS: HYDROMORPHONE 0.5 MG INJ IV (19:45)
[2023-06-28] MEDS: LORazepam 2 MG/ML INJ 0.5 MG IV (20:56)
[2023-06-28] MEDS: TRAMADOL 50 MG PREPACK 1 BOTTLE MISC (21:57)
== END 2023-06-28 22:04 | disposition home or self-care (01) ==
PROVIDERS: Emergency Medicine; Emergency Provider Emergency Medicine; PCP Family Medicine
DX: K52.9 Noninfective gastroenteritis and colitis, unspecified (principal); K59.00 Constipation, unspecified
CPT/HCPCS: 36415; 74022; 74177; 80053; 81003; 83690; 85025; 93005; 93010; 96361; 96374; 96375; 96376; 99284; J1170; J1885; J2060; J2270; J2405; Q9967

== ENCOUNTER → 2023-11-08 07:13 | Outpatient (CLI) | payer BC, SELFPAY ==
[2023-08-31 16:08] VITALS: BMI 35.0
--- NOTE | 2023-11-08 | DI.MRI.S_ITS ---
PROCEDURE: MR KNEE RT WO CON INDICATIONS: Pain in right knee TECHNIQUE: Noncontrast sagittal PD fast spin echo and T2 fast spin echo with fat saturation, sagittal 3-D FLASH with fat saturation; coronal T1 spin echo and PD fast spin echo with fat saturation, and axial PD fast spin echo with fat saturation through the knee. COMPARISON: None FINDINGS: Image quality: Diagnostic Menisci: Medial: Diminutive posterior horn and root. Horizontal complex tear is seen at the peripheral body. Lateral: Small horizontal tear may be degenerative. Cruciate ligaments: No full-thickness defect. Medial structures: MCL: Intact Pes anserine tendons: Intact Semimembranosus: Intact Lateral structures: LCL: Intact Biceps femoris: Intact IT band: Intact Popliteus tendon: Mild edema at the insertion, likely tendinopathy Anterior structures: Extensor mechanism: Intact Fat pads: There is mild prepatellar and Hoffa's fat pad edema Medial retinaculum: Intact. Trochlea: Unremarkable morphology. Bone and joint: Bones: No acute fracture. Cartilage: There is mild diffuse heterogeneity without full-thickness defect or subchondral edema. Osteophytic lipping is seen in all 3 compartments. Joint space: Small joint effusion Caruso's cyst: Tiny Caruso's cyst Soft tissues: No significant vascular or other soft tissue pathology. IMPRESSION: Diminutive posterior horn and root of the medial meniscus, representing tear. Differential includes postsurgical changes. Additional likely degenerative horizontal tear also seen involving the lateral meniscus. No full-thickness tear of the cruciate or collateral ligaments. Early osteoarthritis. Small joint effusion and tiny Caruso cyst. Mild Hoffa's fat pad and prepatellar edema. Dictated by: Bruno Li M.D. on 11/08/2023 at 15:22 Approved by: Bruno Li M.D. on 11/08/2023 at 15:27
== END ==
LOC: MRI 07:14
PROVIDERS: PCP Family Medicine; Referring Provider Orthopaedic Surgery; Visit Provider Orthopaedic Surgery
DX: S83.221A Peripheral tear of medial meniscus, current injury, right knee, initial encounter (principal); S83.281A Other tear of lateral meniscus, current injury, right knee, initial encounter; M17.11 Unilateral primary osteoarthritis, right knee; M25.461 Effusion, right knee; M25.561 Pain in right knee
CPT/HCPCS: 73721

== ENCOUNTER → 2025-01-31 08:37 | Outpatient (CLI) | payer OTHER, SELFPAY ==
[2023-08-31 16:08] VITALS: BMI 35.0
--- NOTE | 2025-01-31 08:38 | DI.MG.S_ITS ---
MM screening mammo BI: 01/31/2025. BI-RADS: 1 CLINICAL: 54-year old female for bilateral screening mammogram. Tyrer-Cuzick lifetime risk of 14.3%. No personal or first-degree family history of breast cancer. Current reported family history of breast cancer: paternal grandmother and paternal aunt. History of ovarian cancer in one first-degree relative. PRIOR EXAMS 02/25/2022, 01/15/2021. MAMMOGRAPHY TECHNIQUE: 2D and 3D (tomosynthesis) digital mammographic views obtained, with additional images as needed for full coverage. Current study was also evaluated with a Computer Aided Detection (CAD) system. DENSITY C. The breasts are heterogeneously dense, which may obscure small masses. MAMMOGRAPHY FINDINGS Bilateral: No suspicious mass, asymmetry, microcalcification, or other abnormality seen. IMPRESSION: * No evidence of malignancy. RECOMMENDATIONS Bilateral * Annual screening mammography. OVERALL ASSESSMENT CATEGORY BI-RADS-1: Negative. The [employer] recommends annual screening mammography beginning at age 40 for women with average risk of breast cancer. ELECTRONICALLY SIGNED: Deisy Lees M.D. on 01/31/2025 at 12:38:43 PM PT Interpreting Station ID: [id number]
== END ==
LOC: MAMMO 08:38
PROVIDERS: PCP Family Medicine; Referring Provider Family Medicine; Visit Provider Family Medicine
DX: Z12.31 Encounter for screening mammogram for malignant neoplasm of breast (principal); R92.333 Mammographic heterogeneous density, bilateral breasts; Z80.3 Family history of malignant neoplasm of breast; Z80.41 Family history of malignant neoplasm of ovary
CPT/HCPCS: 77063; 77067